=== PATIENT | male | born 1955 | race Caucasian/White ===

== ENCOUNTER → 2017-06-28 | Outpatient (CLI) | payer SELFPAY ==
[~2017-06-28] MED LIST: ACID1TAB14 PO; ALPR0.5T PO; DESV50TA PO; FAMO20TA5 PO; GLIM1TAB PO; LAMO200T3 PO; LURA40TA PO; PIOG30TA41 PO; SITA1TAB11 PO; TEST5GEL TP
--- NOTE | 2017-06-28 11:10 | RAD ---
APPROVED REPORT Test Type: Exercise Stress Nurse/Tech: Svetlana Mueller R.N. Test Indications: Chest pain Cardiac History: SEE EMR Medications: SEE EMR Medical History: SEE EMR Resting ECG: SR Resting Heart Rate: 64 bpm Resting Blood Pressure: 168/83mmHg Pretest Chest Pain: None Nurse/Tech Notes S1S2, lungs CTA but diminshed throughout, denied chest pain or SOA. Denied dizziness. Consent: The procedure was explained to the patient in lay terms. Informed consent was witnessed. Aurelio eout was entered into [employer]. History and Stress Test performed by Svetlana Mueller R.N. Stress Symptoms Extremely SOA, c/o L- sided chest pain. POST EXERCISE Reason for Termination: Fatigue Target HR: 134 Max HR: 120 bpm 89% of Maximum Predicted HR: 158 bpm Exercise duration: 3:22 min:sec, 2 Stage Exercise capacity: 7.0METs Max Blood Pressure: 189/67mmHg Blood Pressure response to exercise: Abnormal increase in blood pressure during stress. Heart Rate response to exercise: Normal Chest Pain: Yes. c/o L- sided chest pain Arrhythmia: No. ST Change: Yes. Significant ST segment depression Deviation: 3.5 mm INTERPRETATION Stress EKG Conclusion: Significant 3.5 mm inferior/lateral ST segment depression at moderate workload suggestive of ischemia. ST segments resolved in rest. Conclusion 1. Stress EKG only, no imaging performed. 2. Average workload at 7.0 Mets. 3. Hypertensive BP response. 4. Significant inferolateral ST segment depression suggestive of ischemia with notable symptoms of dy spnea during stress. (POSITIVE STRESS) Recommendations Consider coronary angiography
== END | disposition home or self-care (01) ==
LOC: NM 08:48
PROVIDERS: ATTEND Family Medicine
DX: I10 Essential (primary) hypertension (principal); R07.9 Chest pain, unspecified; E11.9 Type 2 diabetes mellitus without complications
CPT/HCPCS: 93017

== ENCOUNTER 2017-07-10 07:42 | Inpatient (IN) | payer SELFPAY ==
[~2017-07-10] VITALS: Ht 179.1 cm; Wt 109.4 kg
[2017-07-10] VITALS (13 sets, daily range): BP systolic 121–200; BP diastolic 55–95
--- NOTE | 2017-07-10 07:55 | PHYS DOC ---
Past Medical History Past Medical History: Hypertension Adult General Chief Complaint Chief Complaint: CHEST PAIN HPI HPI Patient is a 62 year old male who presents with intermittent left-sided achy chest pain that radiates into his left arm and to feel numb. Patient states he' s been having these symptoms increasing in frequency over the last couple months. Patient had a stress test performed on June 28 that was positive for ischemia with stress. Patient states he gets his symptoms more with exerting himself, improves with rest. No known coronary artery disease, he has been seen by Dr. Cooper. He took an 81 mg aspirin. His pain is still present but mild in nature at this time. Reports recent mild cough, no fevers, no shortness of breath or diaphoresis. Primary care physician is Dr. Huitron Review of Systems Review of Systems Constitutional: Denies fever or chills [] Eyes: Denies change in visual acuity, redness, or eye pain [] HENT: Denies nasal congestion or sore throat [] Respiratory: Denies shortness of breath [] Cardiovascular: No additional information not addressed in HPI [] GI: Denies abdominal pain, nausea, vomiting, bloody stools or diarrhea [] : Denies dysuria or hematuria [] Musculoskeletal: Denies back pain or joint pain [] Integument: Denies rash or skin lesions [] Neurologic: Denies headache, focal weakness or sensory changes [] Current Medications Current Medications Current Medications Medications (Trade) Dose Ordered Sig/Teresa Start Time Stop Time Status Last Admin Dose Admin Aspirin (Children'S Aspirin) 243 mg 1X ONCE 07/10/17 08:00 07/10/17 08:02 DC 07/10/17 08:17 243 MG Heparin Sodium (Porcine) (Heparin Sodium) 4,000 unit 1X ONCE 07/10/17 08:45 07/10/17 08:46 DC 07/10/17 08:50 4,000 UNIT Heparin Sodium/ Dextrose 500 ml @ 0 mls/hr CONT PRN 07/10/17 08:45 07/10/17 08:51 0 MLS/HR Nitroglycerin (Nitrostat) 0.4 mg PRN Q5MIN PRN 07/10/17 08:00 07/10/17 08:17 0.4 MG Allergies Allergies Allergies Coded Allergies Type Severity Reaction Last Updated Verified codeine Adverse Reaction Mild upset stomach 07/10/17 Yes Physical Exam Physical Exam Constitutional: Well developed, well nourished, no acute distress, non-toxic appearance. [] HENT: Normocephalic, atraumatic, bilateral external ears normal, oropharynx moist, no oral exudates, nose normal. [] Eyes: PERRLA, EOMI, conjunctiva normal, no discharge. [] Neck: Normal range of motion, no tenderness, supple, no stridor. [] Cardiovascular:Heart rate regular with regular rhythm, no murmur [] Lungs & Thorax: Bilateral breath sounds clear to auscultation , no wheeze or crackles Abdomen: Bowel sounds normal, soft, no tenderness, no masses, no pulsatile masses. [] Skin: Warm, dry, no erythema, no rash. [] Back: No tenderness, no CVA tenderness. [] Extremities: No tenderness, no cyanosis, no clubbing, ROM intact, no edema.neg homen's bilateraly Neurologic: Alert and oriented X 3, normal motor function, normal sensory function, no focal deficits noted. [] Psychologic: Affect normal, judgement normal, mood normal. [] Current Patient Data Vital Signs Vital Signs Date Time Temp Pulse Resp B/P (MAP) Pulse Ox O2 Delivery O2 Flow Rate FiO2 07/10/17 08:28 61 16 141/74 (96) 97 Room Air 07/10/17 07:46 97.9 97.9 Lab Values Laboratory Tests Test 07/10/17 07:50 07/10/17 07:55 07/10/17 07:57 White Blood Count 8.1 x10^3/uL (4.0-11.0) Red Blood Count 4.59 x10^6/uL (4.30-5.70) Hemoglobin 13.0 g/dL (13.0-17.5) Hematocrit 38.8 % (39.0-53.0) L Mean Corpuscular Volume 85 fL (79-100) Mean Corpuscular Hemoglobin 28 pg (25-35) Mean Corpuscular Hemoglobin Concent 34 g/dL (31-37) Red Cell Distribution Width 14.9 % (11.5-14.5) H Platelet Count 271 x10^3/uL (140-400) Neutrophils (%) (Auto) 56 % (31-73) Lymphocytes (%) (Auto) 34 % (24-48) Monocytes (%) (Auto) 6 % (0-9) Eosinophils (%) (Auto) 3 % (0-3) Basophils (%) (Auto) 1 % (0-3) Neutrophils # (Auto) 4.5 x10^3uL (1.8-7.7) Lymphocytes # (Auto) 2.8 x10^3/uL (1.0-4.8) Monocytes # (Auto) 0.5 x10^3/uL (0.0-1.1) Eosinophils # (Auto) 0.2 x10^3/uL (0.0-0.7) Basophils # (Auto) 0.1 x10^3/uL (0.0-0.2) Prothrombin Time 11.6 SEC (11.7-14.0) L Prothrombin Time INR 0.9 (0.8-1.1) PTT 28 SEC (24-38) Magnesium Level 1.8 mg/dL (1.8-2.4) Triglycerides Level 332 mg/dL (0-150) H Cholesterol Level 276 mg/dL (0-200) H LDL Cholesterol, Calculated 179 mg/dL (0-100) H VLDL Cholesterol, Calculated 66 mg/dL (0-40) H Non-HDL Cholesterol Calculated 245 mg/dL (0-129) H HDL Cholesterol 31 mg/dL (40-60) L Cholesterol/HDL Ratio 8.9 POC Troponin I 0.08 ng/ml (<0.08) POC Hemoglobin 12.9 g/dL (14-18) L POC Hematocrit 38 % (37-52) POC Sodium 138 mmol/L (135-145) POC Potassium 4.0 mmol/L (3.5-5.0) POC Chloride 107 mmol/L (98-110) POC Total CO2 24 mmol/L (23-32) Anion Gap 12 mmol/L (6-14) POC Blood Urea Nitrogen 16 mg/dL (8-26) POC Creatinine 1.1 mg/dL (0.5-1.4) Glucose Level 190 mg/dL (70-99) H POC Ionized Calcium (Jeaneth) 1.16 mmol/L (1.13-1.32) Laboratory Tests 07/10/17 07:50 Laboratory Tests 07/10/17 07:57 EKG EKG []82 bpm, sinus, normal axis, normal intervals, no ST elevation or depression, nonischemic T waves, interpreted by me Radiology/Procedures Radiology/Procedures CXr: IMPRESSION: 1. A retrocardiac opacity is likely normal vasculature. Correlate clinically to exclude a left lower lobe infiltrate. Comparison with older radiographs is recommended to assess chronicity. Course & Med Decision Making Course & Med Decision Making Pertinent Labs and Imaging studies reviewed. (See chart for details) Pt given 243 mg asa, nitro SL, labs, CXR performed. Pain improved. Contacted cardiology regarding consult, Heparin bolus and drip initiated. called Dr. Huitron for admission. Total critical care time: 32 minutes Dragon Disclaimer Dragon Disclaimer This electronic medical record was generated, in whole or in part, using a voice recognition dictation system. Departure Departure Impression: Primary Impression: Angina effort Additional Impression: Abnormal stress ECG Disposition: ADMITTED INPATIENT Admitting Physician: Caio Huitron Condition: GUARDED Referrals: CAIO HUITRON MD (PCP) Problem Qualifiers ALIYAH ALEJANDRE MD Jul 10, 2017 07:55
[2017-07-10] MEDS ORDERED: NITROGLYCERIN SUBLINGUAL 0.4 MG BOTTLE OF 25. SL PRN (08:00)
[2017-07-10] MEDS ORDERED: ASPIRIN CHEWABLE 81 MG TABLET. PO ONE (08:00)
[2017-07-10 08:09] LABS: BASO # 0.1 x10^3/uL (0.0-0.2); BASO % 1 % (0-3); EOS % 3 % (0-3); HEMATOCRIT 38.8 % (39.0-53.0); LYMPH # 2.8 x10^3/uL (1.0-4.8); LYMPH % 34 % (24-48); MEAN CORPUSCULAR HEMOGLOBIN 28 pg (25-35); MEAN CORPUSCULAR HGB CONC 34 g/dL (31-37); MEAN CORPUSCULAR VOLUME 85 fL (79-100); MONO % 6 % (0-9); NEUT % 56 % (31-73); PLATELET COUNT 271 x10^3/uL (140-400); RED BLOOD COUNT 4.59 x10^6/uL (4.30-5.70); RED CELL DISTRIBUTION WIDTH 14.9 % (11.5-14.5); WHITE BLOOD COUNT 8.1 x10^3/uL (4.0-11.0)
[2017-07-10 08:25] LABS: INR 0.9 (0.8-1.1); PROTHROMBIN TIME PATIENT 11.6 SEC (11.7-14.0)
--- NOTE | 2017-07-10 08:33 | EKG ---
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
[2017-07-10] MEDS ORDERED: SITA1TBM7 PO (08:37)
[2017-07-10] MEDS ORDERED: HEPARIN for IV BOLUS 10,000 UNIT/10 ML VIAL. IV ONE ×2 (08:45)
[2017-07-10] MEDS ORDERED: HEPARIN 25,000UTS/500ML PREMIX 500 ML IV PRN ×2 (08:45)
[2017-07-10 09:10] LABS: CHOLESTEROL/HDL RATIO 8.9
--- NOTE | 2017-07-10 09:34 | RAD ---
EXAM: Chest one view. HISTORY: Left chest pain. COMPARISON: None. FINDINGS: A frontal view of the chest is obtained. A retrocardiac opacity may represent normal vasculature. There is no pneumothorax or pleural effusion. The heart is not enlarged. IMPRESSION: 1. A retrocardiac opacity is likely normal vasculature. Correlate clinically to exclude a left lower lobe infiltrate. Comparison with older radiographs is recommended to assess chronicity.
[2017-07-10] MEDS ORDERED: IV NORMAL SALINE 1000ML BAG 1,000 ML IV SCH ×2 (09:47→10:00)
[2017-07-10] MEDS ORDERED: PNEUMOCOCCAL VAX SCREEN BY RX. MC PRN (10:00)
--- NOTE | 2017-07-10 10:02 | PDOC2 ---
TULIOPAULA Ruiz ROD MILL OPERATOR 07/10/17 1002: CARDIAC CONSULT DATE OF CONSULT Date of Consult DATE: 07/10/17 TIME: 09:48 REASON FOR CONSULT Reason for Consult: Chest pain REFERRING PHYSICIAN Referring Physician: Juan SOURCE Source: Chart review, Patient HISTORY OF PRESENT ILLNESS HISTORY OF PRESENT ILLNESS This is a pleasant 62 yo male admitted for complains of chest pain. Reports that he has been having intermittent chest pressure in the last few weeks and last night it woke him up. Decided to go back to sleep, he then woke up this am and had the same discomfort and it stayed this time. This lasted about an hour and improved when NTG was given. His chest pressure is associated with left neck and left arm discomfort and ALBARADO. He had stress EKG 06/28/2017 which was positive for abnormality suspicious for ischemia. He is positive for DM2 and takes metformin and takes ASA as well otherwise no other meds. PAST MEDICAL HISTORY Cardiovascular: No pertinent hx Pulmonary: No pertinent hx CENTRAL NERVOUS SYSTEM: Other (No pertinent history) GI: No pertinent hx Heme/Onc: No pertinent hx Hepatobiliary: No pertinent hx Psych: Bipolar Musculoskeletal: Osteoarthritis Rheumatologic: No pertinent hx Infectious disease: No pertinent hx ENT: No pertinent hx Renal/: Other (hypogonadism) Endocrine: Diabetes (2) Dermatology: No pertinent hx PAST SURGICAL HISTORY Past Surgical History: No pertinent history FAMILY HISTORY Family History: Coronary Artery Disease (father CABG at 50) SOCIAL HISTORY Smoke: No ALCOHOL: none Drugs: Marijuana Lives: with Family CURRENT MEDICATIONS CURRENT MEDICATIONS Current Medications Medications (Trade) Dose Ordered Sig/Teresa Route PRN Reason Start Time Stop Time Status Last Admin Dose Admin Aspirin (Children'S Aspirin) 243 mg 1X ONCE PO 07/10/17 08:00 07/10/17 08:02 DC 07/10/17 08:17 Nitroglycerin (Nitrostat) 0.4 mg PRN Q5MIN PRN SL CHEST PAIN 07/10/17 08:00 07/10/17 08:17 Heparin Sodium (Porcine) (Heparin Sodium) 4,000 unit 1X ONCE IV 07/10/17 08:45 07/10/17 08:46 DC 07/10/17 08:50 Heparin Sodium/ Dextrose 500 ml @ 0 mls/hr CONT PRN IV SEE I/O RECORD 07/10/17 08:45 07/10/17 08:51 ALLERGIES ALLERGIES: Coded Allergies: codeine (Verified Adverse Reaction, Mild, upset stomach, 07/10/17) ROS Review of System 14 point ROS evaluated with pertinent positives noted per HPI PHYSICAL EXAM General: Alert, Oriented X3, Cooperative, No acute distress HEENT: Atraumatic, Mucous membr. moist/pink Lungs: Clear to auscultation, Normal air movement Heart: Regular rate (SR), Normal S1, Normal S2, No murmurs Abdomen: Soft, No tenderness Extremities: No cyanosis, No edema Skin: No breakdown, No significant lesion Neuro: Normal speech, Sensation intact Psych/Mental Status: Mood NL MUSCULOSKELETAL: Osteoarthritic changes both hands VITALS VITALS Vital Signs Date Time Temp Pulse Resp B/P (MAP) Pulse Ox O2 Delivery O2 Flow Rate FiO2 07/10/17 09:25 97.9 70 18 121/55 (77) 97 Room Air 97.9 LABS Lab: Laboratory Tests Test 07/10/17 07:50 07/10/17 07:55 07/10/17 07:57 White Blood Count 8.1 x10^3/uL (4.0-11.0) Red Blood Count 4.59 x10^6/uL (4.30-5.70) Hemoglobin 13.0 g/dL (13.0-17.5) Hematocrit 38.8 % (39.0-53.0) Mean Corpuscular Volume 85 fL (79-100) Mean Corpuscular Hemoglobin 28 pg (25-35) Mean Corpuscular Hemoglobin Concent 34 g/dL (31-37) Red Cell Distribution Width 14.9 % (11.5-14.5) Platelet Count 271 x10^3/uL (140-400) Neutrophils (%) (Auto) 56 % (31-73) Lymphocytes (%) (Auto) 34 % (24-48) Monocytes (%) (Auto) 6 % (0-9) Eosinophils (%) (Auto) 3 % (0-3) Basophils (%) (Auto) 1 % (0-3) Neutrophils # (Auto) 4.5 x10^3uL (1.8-7.7) Lymphocytes # (Auto) 2.8 x10^3/uL (1.0-4.8) Monocytes # (Auto) 0.5 x10^3/uL (0.0-1.1) Eosinophils # (Auto) 0.2 x10^3/uL (0.0-0.7) Basophils # (Auto) 0.1 x10^3/uL (0.0-0.2) Prothrombin Time 11.6 SEC (11.7-14.0) Prothromb Time International Ratio 0.9 (0.8-1.1) Activated Partial Thromboplast Time 28 SEC (24-38) Magnesium Level 1.8 mg/dL (1.8-2.4) Triglycerides Level 332 mg/dL (0-150) Cholesterol Level 276 mg/dL (0-200) LDL Cholesterol, Calculated 179 mg/dL (0-100) VLDL Cholesterol, Calculated 66 mg/dL (0-40) Non-HDL Cholesterol Calculated 245 mg/dL (0-129) HDL Cholesterol 31 mg/dL (40-60) Cholesterol/HDL Ratio 8.9 Bedside Troponin I 0.08 ng/ml (<0.08) Bedside Hemoglobin 12.9 g/dL (14-18) Bedside Hematocrit 38 % (37-52) Bedside Sodium 138 mmol/L (135-145) Bedside Potassium 4.0 mmol/L (3.5-5.0) Bedside Chloride 107 mmol/L (98-110) Bedside Total CO2 24 mmol/L (23-32) Anion Gap 12 mmol/L (6-14) Bedside Blood Urea Nitrogen 16 mg/dL (8-26) Bedside Creatinine 1.1 mg/dL (0.5-1.4) Glucose Level 190 mg/dL (70-99) Bedside Ionized Calcium (Jeaneth) 1.16 mmol/L (1.13-1.32) STRESS TEST STRESS TEST Conclusion 1. Stress EKG only, no imaging performed. 2. Average workload at 7.0 Mets. 3. Hypertensive BP response. 4. Significant inferolateral ST segment depression suggestive of ischemia with notable symptoms of dyspnea during stress. (POSITIVE STRESS) Recommendations Consider coronary angiography DATE: 06/28/17 1110 ASSESSMENT/PLAN ASSESSMENT/PLAN 1. Unstable angina: recently abnormal stress EKG 2. HTN: new. improving 3. HLP: New. Suspecting FH 4. DM2 5. Hypogonadism: takes testosterone gel 6. Hx of bipolar 7. Marijuana use: last use today Recommendations 1. LHC today, risks and benefits discussed and agreeable to proceed 2. Heparin drip, ASA. Start on high dose lipitor. 3. Discussed abstinence from marijuana 4. Further adjustment of medications and secondary prevention measures post cath. Problems: LORI PARIKH MD 07/10/17 1631: CARDIAC CONSULT ALLERGIES ALLERGIES: Coded Allergies: codeine (Verified Adverse Reaction, Mild, upset stomach, 07/10/17) ASSESSMENT/PLAN ASSESSMENT/PLAN Patient seen and examined. Agree with WAFER SLICER's assessment and plan. Symptoms consistent with unstable angina. Recent stress electrocardiogram positive for ischemia. We will proceed with left heart catheterization and possible angioplasty. Risks and benefits were explained. Thank you for your consultation. Problems: PAULA SANTILLAN APRN Jul 10, 2017 10:02 LORI PARIKH MD Jul 10, 2017 16:31
[2017-07-10] MEDS ORDERED: LAMO200T3 PO (10:18)
[2017-07-10 10:22] LABS: ALBUMIN 3.7 g/dL (3.4-5.0); DIRECT BILIRUBIN 0.1 mg/dL (0.0-0.2); TOTAL BILIRUBIN 0.2 mg/dL (0.2-1.0); TOTAL PROTEIN 7.4 g/dL (6.4-8.2)
[2017-07-10] MEDS ORDERED: ASPIRIN ENTERIC COATED 81 MG TABLET.DR. PO SCH (11:00)
[2017-07-10] MEDS ORDERED: PNEUMOC CONJ VACC 23-VALENT 0.5 ML VIAL. VAX IM ONE (11:00)
--- NOTE | 2017-07-10 11:19 | CARD ---
APPROVED REPORT EXAM: Two-dimensional and M-mode echocardiogram with Doppler and color Doppler. Other Information Quality : AverageHR: 68bpm INDICATION Chest Pain 2D DIMENSIONS Left Atrium(2D)4.0 (1.6-4.0cm)IVSd1.3 (0.7-1.1cm) Aortic Root(2D)3.4 (2.0-3.7cm)LVDd5.0 (3.9-5.9cm) LVOT Diameter2.1 (1.8-2.4cm)PWd1.3 (0.7-1.1cm) LVDs3.2 (2.5-4.0cm)FS (%) 35.4 % SV76.2 mlLVEF(%)64.6 (>50%) Aortic Valve AoV Peak Reji.144.9cm/sAoV VTI34.8cm AO Peak GR.8.4mmHgLVOT Peak Reji.111.1cm/s AO Mean GR.5mmHgAVA (VMAX)2.77cm2 [place] (VTI)2.80cm2 Mitral Valve MV E Zihaxfpm49.0cm/sMV DECEL OPPP368ut MV A Xxucxway17.4cm/sE/A Ratio0.8 Tricuspid Valve TR P. Kokhxcht324xl/sRAP [id number] TR Peak Gr.59wqLaIBUC94bvHh LEFT VENTRICLE The left ventricle is normal size. There is mild concentric left ventricular hypertrophy. Left ventri pankaj systolic function is normal. The Ejection Fraction is 50-55%. There is normal LV segmental wall m otion. Transmitral Doppler flow pattern is Grade I-abnormal relaxation pattern. RIGHT VENTRICLE The right ventricle is normal size. The right ventricular systolic function is normal. ATRIA The left atrium size is normal. The right atrium size is normal. The interatrial septum is intact wit h no evidence for an atrial septal defect or patent foramen ovale as noted on 2-D or Doppler imaging. AORTIC VALVE The aortic valve is sclerotic but opens well. Doppler and Color Flow revealed no significant aortic r egurgitation. There is no significant aortic valvular stenosis. MITRAL VALVE The mitral valve is normal in structure and function. There is no evidence of mitral valve prolapse. There is no mitral valve stenosis. Doppler and Color Flow revealed no mitral valve regurgitation note d. TRICUSPID VALVE The tricuspid valve is normal in structure. Doppler and Color Flow revealed trace to mild tricuspid r egurgitation. There is no pulmonary hypertension. The PA pressure was estimated at 20 mmHg. There is no tricuspid valve prolapse or vegetation. There is no tricuspid valve stenosis. PULMONIC VALVE Doppler and Color Flow revealed trace pulmonic valvular regurgitation. There is no pulmonic valvular stenosis. GREAT VESSELS The aortic root is normal in size. The ascending aorta is normal in size. The IVC is normal in size a nd collapses >50% with inspiration. PERICARDIAL EFFUSION There is no pleural effusion. There is no evidence of significant pericardial effusion. Critical Notification Critical Value: No <Conclusion> Left ventricle systolic function is normal. The Ejection Fraction is 50-55%. There is normal LV segmental wall motion.
[2017-07-10] MEDS ORDERED: LIDOCAINE 2% 20 ML VIAL. ONE (11:59)
[2017-07-10] MEDS ORDERED: IOHEXOL 300 MG/ML 100ML VIAL. ONE ×2 (11:59→15:32)
[2017-07-10] MEDS: LACTOBACILLUS RHAMNOSUS GG 1 CAPSULE. PO SCH ×2 (12:00→18:04)
[2017-07-10] MEDS ORDERED: DEXTROSE 50% 25 GM / 50ML DISP.SYRIN. IV PRN (12:00)
[2017-07-10] MEDS: ALPRAZolam 0.5 MG TABLET PO SCH ×2 (14:00→21:23)
[2017-07-10] MEDS ORDERED: MIDAZOLAM HCL/PF 2 MG/2 ML VIAL. ONE (15:09)
[2017-07-10] MEDS ORDERED: NITROGLYCERIN 200 MCG/2 ML SYRINGE FOR CATH/VASC LAB. ONE (15:09)
[2017-07-10] MEDS ORDERED: VERAPAMIL 5 MG/2 ML VIAL. ONE (15:09)
[2017-07-10] MEDS ORDERED: fentaNYL PF VIAL 100 MCG/2 ML VIAL ONE (15:09)
[2017-07-10] MEDS ORDERED: HEPARIN for IV BOLUS 10,000 UNIT/10 ML VIAL. ONE (15:09)
[2017-07-10] MEDS ORDERED: fentaNYL PF VIAL 100 MCG/2 ML VIAL IV ONE (15:45)
[2017-07-10] MEDS ORDERED: VERAPAMIL 5 MG/2 ML VIAL. IART ONE (15:45)
[2017-07-10] MEDS ORDERED: IOHEXOL 300 MG/ML 100ML VIAL. IART ONE (15:45)
[2017-07-10] MEDS ORDERED: HEPARIN for IV BOLUS 10,000 UNIT/10 ML VIAL. IART ONE (15:45)
[2017-07-10] MEDS ORDERED: CONTRAST GIVEN MC PRN (15:45)
[2017-07-10] MEDS ORDERED: LIDOCAINE 2% 20 ML VIAL. IJ ONE (15:45)
[2017-07-10] MEDS ORDERED: MIDAZOLAM HCL/PF 2 MG/2 ML VIAL. IV ONE (15:45)
[2017-07-10] MEDS ORDERED: NITROGLYCERIN 200 MCG/2 ML SYRINGE FOR CATH/VASC LAB. IART ONE (15:45)
--- NOTE | 2017-07-10 16:26 | CARD ---
APPROVED REPORT Procedure(s) performed: Left heart catheterization, selective coronary angiography and left ventricul ography via right transradial approach Moderate sedation: 25 minutes INDICATION The indication(s) include : unstable angina . PROCEDURE NARRATIVE After explaining the risks, benefits and alternative options, informed consent was obtained from ron ent. Patient was brought to the cardiac Plant Electrical Engineer and right wrist was prepped and draped in the usual fashion after confirming a positive modified Amanuel's test. Arterial access was obtained in the [facility] t radial artery and a 6 [place]ian sheath was inserted. 6 [place] Vlad and 6 [place] 3-D RC catheters we re used to perform selective angiography of the left and right coronary arteries. 6 [place]ian pigtail c atheter was used to perform left ventriculography. Patient tolerated the procedure well. Hemostasis was achieved using TR band. There were no immediate complications. The following findings were not ed. FINDINGS 1. Hemodynamics: Left ventricular end-diastolic pressure of 15 mmHg. No pullback gradient across th e aortic valve. 2. Left ventriculography: Normal left ventricle systolic function with ejection fraction estimated at 60%. No significant mitral regurgitation seen. 3. Coronary angiography: a. The left main coronary artery arose from the left sinus of Valsalva, gave rise to the left anteri or descending and left circumflex arteries and did not show any significant stenosis. b. The left anterior descending artery showed long and heavily calcified 90-95% stenosis involving m id segment. c. The left circumflex artery showed 90% trifurcation stenosis involving the distal segment, second third and fourth obtuse marginal branches. The first obtuse marginal branch which is a small-caliber vessel showed long 90% stenosis in the proximal to midsegment. d. The right coronary artery was a dominant vessel arising from the right sinus of Valsalva that barbara wed 100% chronic total occlusion involving the proximal to midsegment with distal reconstitution of p osterior descending and posterolateral branches via [id number] collaterals. Conclusion 1. Severe three-vessel coronary artery disease 2. Normal left ventricle systolic function with ejection fraction estimated at 60% Recommendations CT surgery consultation for coronary artery bypass surgery
--- NOTE | 2017-07-10 16:27 | PDOC ---
MODERATE SEDATION ASSESSMENT RISKS/ALTERNATIVES Risks/Alternatives Risks and alternatives of this type of sedation and procedure discussed with: RISK/ALTERNATIVES: Patient H & P ON CHART H & P H & P on chart and reviewed for co-morbid conditions and appropriate labs. H&P ON CHART: Yes STATUS PREG STATUS ASSESSED: N/A MEDS/ALLERGIES REVIEWED Meds/Allergies Reviewed Medications and Allergies including time and route of recently administered narcotics and sedatives. MEDS/ALLERGIES REVIEWED: Yes ASA RATING ASA RATING: II AIRWAY ASSESSMENT Airway Assessment Airway patency, oral function limitations, presence of caps, crowns, dentures, partials, and ability to extend neck assessed. AIRWAY ASSESSMENT: Yes MALLAMPATI SCORE MALLAMPATI SCORE: II PRE-SEDATION ASSESSMENT PRE-SEDATION ASSESSMENT: Yes LORI PARIKH MD Jul 10, 2017 16:27
[2017-07-10] MEDS ORDERED: ZOLPIDEM 5 MG TABLET. PO PRN (17:45)
[2017-07-10] MEDS ORDERED: METOPROLOL TART IMMED RELEASE 25 MG TABLET. PO ONE (17:45)
--- NOTE | 2017-07-10 17:47 | PDOC2 ---
CONSULT Date of Consult Date of Consult DATE: 07/10/17 TIME: 17:39 Reason for Consult Reason for Consult: Unstable angina Severe three-vessel coronary artery disease Referring Physician Referring Physician: Dr Bosch Identification/Chief Complaint Chief Complaint Chest pain Problems: Source Source: Chart review, Patient History of Present Illness Reason for Visit: The patient is a 62-year-old male who over the past several months has been complaining of angina on minimal exertion. He has a family history of ischemic heart disease, and a medical history of type 2 diabetes and hypertension. He had a stress test 10 days ago which was strongly positive. He was due to have an elective coronary angiogram next week but came to the emergency room last night after a severe episode of central chest pain radiating to his left arm and jaw or which woke him up in the middle and night. His troponin was negative. Coronary angiography today demonstrated a very tight proximal to mid LAD stenosis, multiple tight lesions in the left circumflex, and a chronically occluded RCA. The RPDA back feels from left to right collaterals. His LV function is preserved. An echo did not show any valvular disease. I was consulted to consider the patient for coronary surgical revascularization. Past Medical History Cardiovascular: No pertinent hx Pulmonary: No pertinent hx CENTRAL NERVOUS SYSTEM: Other (No pertinent history) GI: No pertinent hx Heme/Onc: No pertinent hx Hepatobiliary: No pertinent hx Psych: Bipolar Musculoskeletal: Osteoarthritis Rheumatologic: No pertinent hx Infectious disease: No pertinent hx ENT: No pertinent hx Renal/: Other (hypogonadism) Endocrine: Diabetes (2) Dermatology: No pertinent hx Past Surgical History Past Surgical History: No pertinent history Family History Family History: Coronary Artery Disease (father CABG at 50) Social History No ALCOHOL: none Drugs: Marijuana Lives: with Family Current Problem List Problem List Problems Medical Problems: (1) Abnormal stress ECG Status: Acute (2) Angina effort Status: Acute Current Medications Current Medications Current Medications Aspirin (Children'S Aspirin) 243 mg 1X ONCE PO Last administered on 08:17; Start 07/10/17 at 08:00; Stop 07/10/17 at 08:02; Status DC Nitroglycerin (Nitrostat) 0.4 mg PRN Q5MIN PRN SL CHEST PAIN Last administered on 07/10/17 08:17; Start 07/10/17 at 08:00 Heparin Sodium (Porcine) (Heparin Sodium) 4,000 unit 1X ONCE IV ; Start at 08:45; Stop 07/10/17 at 08:46; Status Cancel Heparin Sodium/ Dextrose 500 ml @ 0 mls/hr CONT PRN IV SEE I/O RECORD; Start 07/10/17 at 08:45; Status UNV Heparin Sodium (Porcine) (Heparin Sodium) 4,000 unit 1X ONCE IV Last administered on 07/10/17 08:50; Start 07/10/17 at 08:45; Stop 07/10/17 at 08 :46; Status DC Heparin Sodium/ Dextrose 500 ml @ 0 mls/hr CONT PRN IV SEE I/O RECORD Last administered on 07/10/17 08:51; Start 07/10/17 at 08:45 Sodium Chloride 1,000 ml @ 60 mls/hr [id number] IV ; Start 07/10/17 at 10:00; Stop 07/10/17 at 10:13; Status DC Sodium Chloride 1,000 ml @ 60 mls/hr [id number] IV Last administered on 09:59; Start 07/10/17 at 09:47 Pneumococcal Polyvalent Vaccine (Do NOT chart on this placeholder) 1 each PRN 1X PRN MC SEE COMMENTS; Start 07/10/17 at 10:00; Status UNV Pneumococcal Polyvalent Vaccine (Pneumovax 23) 0.5 ml ONCE ONCE VAX IM ; Start 07/10/17 at 11:00; Stop 07/10/17 at 11:01; Status DC Aspirin (Ecotrin) 81 mg DAILYWBKFT PO ; Start 07/10/17 at 11:00 Atorvastatin Calcium (Lipitor) 80 mg QHS PO ; Start 07/10/17 at 21:00 Alprazolam (Xanax) 0.5 mg TID PO ; Start 07/10/17 at 14:00 Lurasidone HCl (Latuda) 40 mg QHS PO ; Start 07/10/17 at 21:00 Non-Formulary Medication 1 tab DAILY PO ; Start 07/11/17 at 09:00; Status Cancel Glimepiride (Amaryl) 2 mg DAILY PO ; Start 07/10/17 at 12:00 Lamotrigine (LaMICtal) 200 mg QHS PO ; Start 07/10/17 at 21:00 Pioglitazone HCl (Actos) 30 mg DAILY PO ; Start 07/10/17 at 12:00 Non-Formulary Medication 1 packet DAILY TP ; Start 07/11/17 at 09:00; Status UNV Lactobacillus Rhamnosus (Culturelle) 1 cap TIDWMEALS PO ; Start 07/10/17 at 12: 00 Dextrose (Dextrose 50%-Water Syringe) 12.5 gm PRN Q15MIN PRN IV SEE COMMENTS; Start 07/10/17 at 12:00 Desvenlafaxine Succinate (Pristiq Er) 50 mg DAILY PO ; Start 07/11/17 at 09:00 Nitroglycerin (Nitroglycerin) 200 mcg 1X ONCE IART Last administered on 15:54; Start 07/10/17 at 15:45; Stop 07/10/17 at 15:46; Status DC Verapamil HCl (Verapamil) 2.5 mg 1X ONCE IART Last administered on 07/10/17 15:54; Start 07/10/17 at 15:45; Stop 07/10/17 at 15:46; Status DC Heparin Sodium (Porcine) (Heparin Sodium) 2,500 unit 1X ONCE IART Last administered on 07/10/17 15:55; Start 07/10/17 at 15:45; Stop 07/10/17 at 15 :46; Status DC Heparin Sodium/ Sodium Chloride 1,000 unit 1X ONCE IART Last administered on 07/10/17 15:53; Start 07/10/17 at 15:45; Stop 07/10/17 at 15:46; Status DC Midazolam HCl (Versed) 2 mg 1X ONCE IV Last administered on 07/10/17 15:55; Start 07/10/17 at 15:45; Stop 07/10/17 at 15:46; Status DC Fentanyl Citrate (Fentanyl 2ml Vial) 100 mcg 1X ONCE IV Last administered on 07/10/17 15:55; Start 07/10/17 at 15:45; Stop 07/10/17 at 15:46; Status DC Iohexol (Omnipaque 300 Mg/ml) 120 ml 1X ONCE IART Last administered on 15:54; Start 07/10/17 at 15:45; Stop 07/10/17 at 15:46; Status DC Lidocaine HCl 1 ml 1X ONCE IJ Last administered on 07/10/17t 15:53; Start at 15:45; Stop 07/10/17 at 15:46; Status DC Info (Do NOT chart on this entry -- for MONITORING) 1 each PRN DAILY PRN MC SEE COMMENTS; Start 07/10/17 at 15:45; Stop 07/12/17 at 15:44 Metoprolol Tartrate (Lopressor) 12.5 mg BID PO ; Start 07/10/17 at 21:00 Ringer's Solution 1,000 ml @ 50 mls/hr Q20H IV ; Start 07/11/17 at 07:00; Stop 07/11/17 at 18:59 Zolpidem Tartrate (Ambien) 5 mg PRN QHS PRN PO INSOMNIA, MAY REPEAT IN 1HR; Start 07/10/17 at 17:45 Cefazolin Sodium/ Dextrose 50 ml @ 100 mls/hr 1X ONCE IV ; Start 07/11/17 at 06:00; Stop 07/11/17 at 06:29 Metoprolol Tartrate (Lopressor) 25 mg 1X ONCE PO ; Start 07/10/17 at 17:45; Stop 07/10/17 at 17:46; Status UNV Hydralazine HCl (Apresoline Inj) 20 mg PRN Q4HRS PRN IVP ELEVATED BP, SEE COMMENTS; Start 07/10/17 at 17:45; Status UNV Active Scripts Active Famotidine 20 Mg Tablet 20 Mg PO QHS 30 Days Debi-Bid Caplet (Acidoph/L.bulg/Bif.b/S.thermop) 1 Each Tablet 1 Tab PO TIDWMEALS 14 Days Reported Lamictal (Lamotrigine) 200 Mg Tablet 1 Tab PO HS Janumet Xr 100-1,000 Mg Tablet (Sitagliptin Phos/Metformin Hcl) 1 Each Tbmp.24hr 1 Each PO DAILY Amaryl (Glimepiride) 1 Mg Tablet 2 Tab PO DAILY Androgel (Testosterone) 5 Gm Gel.packet 1 Packet TP DAILY Actos (Pioglitazone Hcl) 30 Mg Tablet 1 Tab PO DAILY Pristiq Er (Desvenlafaxine Succinate) 50 Mg Tab.er.24h 1 Tab PO DAILY Latuda (Lurasidone Hcl) 40 Mg Tablet 1 Tab PO QHS Xanax (Alprazolam) 0.5 Mg Tablet 1 Tab PO TID Allergies Allergies: Coded Allergies: codeine (Verified Adverse Reaction, Mild, upset stomach, 07/10/17) ROS General: YES: Fatigue, No: Chills, Night Sweats, Malaise, Appetite PSYCHOLOGICAL ROS: No: Anxiety, Behavioral Disorder, Concentration difficultie , Decreased libido, Depression, Disorientation, Hallucinations, Hostility, Irritablity, Memory difficulties, Mood Swings, Obsessive thoughts, Physical abuse, Sexual abuse, Sleep disturbances, Suicidal ideation Eyes: No Blurry vision, No Decreased vision, No Double vision, No Dry eyes, No Excessive tearing, No Eye Pain, No Itchy Eyes, No Loss of vision, No Photophobia , No Scotomata, No Uses contacts, No Uses glasses HEENT: No: Heacaches, Visual Changes, Hearing change, Nasal congestion, Nasal discharge, Oral lesions, Sinus pain, Sore Throat, Epistaxis, Sneezing, Snoring, Tinnitus, Vertigo, Vocal changes ALLERGY AND IMMUNOLOGY: No: Hives, Insect Bite Sensitivity, Itchy/Watery Eyes, Nasal Congestion, Post Nasal Drip, Seasonal Allergies Hematological and Lymphatic: No: Bleeding Problems, Blood Clots, Blood Transfusions, Brusing, Night Sweats, Pallor, Swollen Lymph Nodes ENDOCRINE: No: Breast Changes, Galactorrhea, Hair Pattern Changes, Hot Flashes , Malaise/lethargy, Mood Swings, Palpitations, Polydipsia/polyuria, Skin Changes , Temperature Intolerance, Unexpected Weight Changes Respiratory: No: Cough, Hemoptysis, Orthopnea, Pleuritic Pain, Shortness of breath, SOB with excertion, Sputum Changes, Stridor, Tachypnea, Wheezing Cardiovascular: yes Chest Pain, No Palpitations, No Orthopnea, No Paroxysmal Noc. Dyspnea, No Edema, No Lt Headedness Gastrointestinal: No Nausea, No Vomiting, No Abdominal Pain, No Diarrhea, No Constipation, No Melena, No Hematochezia Genitourinary: No Dysuria, No Frequency, No Incontinence, No Hematuria, No Retention, No Discharge, No Urgency, No Pain, No Flank Pain Musculoskeletal: No Gait Disturbance, No Joint Pain, No Joint Stiffness, No Joint Swelling, No Muscle Pain, No Muscular Weakness, No Pain In:, No Swelling In: Neurological: No Behavorial Changes, No Bowel/Bladder ControlChng, No Confusion , No Dizziness, No Gait Disturbance, No Headaches, No Impaired Coord/balance, No Memory Loss, No Numbness/Tingling, No Seizures, No Speech Problems, No Tremors, No Visual Changes, No Weakness Skin: No Dry Skin, No Eczema, No Hair Changes, No Lumps, No Mole Changes, No Mottling, No Nail Changes, No Pruritus, No Rash, No Skin Lesion Changes, No Acne Physical Exam General: Alert, Oriented X3, No acute distress HEENT: Atraumatic, PERRLA Lungs: Clear to auscultation Heart: Regular rate, Normal S1, Normal S2 Abdomen: Soft, No tenderness Extremities: Normal pulses Skin: No significant lesion Neuro: Normal gait, Normal speech, Strength at 5/5 X4 ext, Normal tone, Sensation intact, Cranial nerves 3-12 NL Psych/Mental Status: Mental status NL MUSCULOSKELETAL: No joint tenderness Vitals VITALS Vital Signs Date Time Temp Pulse Resp B/P (MAP) Pulse Ox O2 Delivery O2 Flow Rate FiO2 07/10/17 15:56 66 12 97 Nasal Cannula 2.0 07/10/17 10:50 97.7 129/71 (90) 97.7 Labs Labs Laboratory Tests Test 07/10/17 07:50 07/10/17 07:55 07/10/17 07:57 07/10/17 11:29 White Blood Count 8.1 x10^3/uL (4.0-11.0) Red Blood Count 4.59 x10^6/uL (4.30-5.70) Hemoglobin 13.0 g/dL (13.0-17.5) Hematocrit 38.8 % (39.0-53.0) Mean Corpuscular Volume 85 fL (79-100) Mean Corpuscular Hemoglobin 28 pg (25-35) Mean Corpuscular Hemoglobin Concent 34 g/dL (31-37) Red Cell Distribution Width 14.9 % (11.5-14.5) Platelet Count 271 x10^3/uL (140-400) Neutrophils (%) (Auto) 56 % (31-73) Lymphocytes (%) (Auto) 34 % (24-48) Monocytes (%) (Auto) 6 % (0-9) Eosinophils (%) (Auto) 3 % (0-3) Basophils (%) (Auto) 1 % (0-3) Neutrophils # (Auto) 4.5 x10^3uL (1.8-7.7) Lymphocytes # (Auto) 2.8 x10^3/uL (1.0-4.8) Monocytes # (Auto) 0.5 x10^3/uL (0.0-1.1) Eosinophils # (Auto) 0.2 x10^3/uL (0.0-0.7) Basophils # (Auto) 0.1 x10^3/uL (0.0-0.2) Prothrombin Time 11.6 SEC (11.7-14.0) Prothromb Time International Ratio 0.9 (0.8-1.1) Activated Partial Thromboplast Time 28 SEC (24-38) Magnesium Level 1.8 mg/dL (1.8-2.4) Total Bilirubin 0.2 mg/dL (0.2-1.0) Direct Bilirubin 0.1 mg/dL (0.0-0.2) Aspartate Amino Transf (AST/SGOT) 14 U/L (15-37) Alanine Aminotransferase (ALT/SGPT) 17 U/L (16-63) Alkaline Phosphatase 44 U/L (46-116) Total Protein 7.4 g/dL (6.4-8.2) Albumin 3.7 g/dL (3.4-5.0) Triglycerides Level 332 mg/dL (0-150) Cholesterol Level 276 mg/dL (0-200) LDL Cholesterol, Calculated 179 mg/dL (0-100) VLDL Cholesterol, Calculated 66 mg/dL (0-40) Non-HDL Cholesterol Calculated 245 mg/dL (0-129) HDL Cholesterol 31 mg/dL (40-60) Cholesterol/HDL Ratio 8.9 Thyroid Stimulating Hormone (TSH) 1.535 uIU/mL (0.358-3.74) Bedside Troponin I 0.08 ng/ml (<0.08) Bedside Hemoglobin 12.9 g/dL (14-18) Bedside Hematocrit 38 % (37-52) Bedside Sodium 138 mmol/L (135-145) Bedside Potassium 4.0 mmol/L (3.5-5.0) Bedside Chloride 107 mmol/L (98-110) Bedside Total CO2 24 mmol/L (23-32) Anion Gap 12 mmol/L (6-14) Bedside Blood Urea Nitrogen 16 mg/dL (8-26) Bedside Creatinine 1.1 mg/dL (0.5-1.4) Glucose Level 190 mg/dL (70-99) Bedside Ionized Calcium (Jeaneth) 1.16 mmol/L (1.13-1.32) Glucose (Fingerstick) 81 mg/dL (70-99) Test 07/10/17 14:05 07/10/17 16:15 Troponin I Quantitative 0.090 ng/mL (0.000-0.055) Glucose (Fingerstick) 95 mg/dL (70-99) Laboratory Tests Test 07/10/17 07:50 07/10/17 07:55 07/10/17 07:57 07/10/17 11:29 White Blood Count 8.1 x10^3/uL (4.0-11.0) Red Blood Count 4.59 x10^6/uL (4.30-5.70) Hemoglobin 13.0 g/dL (13.0-17.5) Hematocrit 38.8 % (39.0-53.0) Mean Corpuscular Volume 85 fL (79-100) Mean Corpuscular Hemoglobin 28 pg (25-35) Mean Corpuscular Hemoglobin Concent 34 g/dL (31-37) Red Cell Distribution Width 14.9 % (11.5-14.5) Platelet Count 271 x10^3/uL (140-400) Neutrophils (%) (Auto) 56 % (31-73) Lymphocytes (%) (Auto) 34 % (24-48) Monocytes (%) (Auto) 6 % (0-9) Eosinophils (%) (Auto) 3 % (0-3) Basophils (%) (Auto) 1 % (0-3) Neutrophils # (Auto) 4.5 x10^3uL (1.8-7.7) Lymphocytes # (Auto) 2.8 x10^3/uL (1.0-4.8) Monocytes # (Auto) 0.5 x10^3/uL (0.0-1.1) Eosinophils # (Auto) 0.2 x10^3/uL (0.0-0.7) Basophils # (Auto) 0.1 x10^3/uL (0.0-0.2) Prothrombin Time 11.6 SEC (11.7-14.0) Prothromb Time International Ratio 0.9 (0.8-1.1) Activated Partial Thromboplast Time 28 SEC (24-38) Magnesium Level 1.8 mg/dL (1.8-2.4) Total Bilirubin 0.2 mg/dL (0.2-1.0) Direct Bilirubin 0.1 mg/dL (0.0-0.2) Aspartate Amino Transf (AST/SGOT) 14 U/L (15-37) Alanine Aminotransferase (ALT/SGPT) 17 U/L (16-63) Alkaline Phosphatase 44 U/L (46-116) Total Protein 7.4 g/dL (6.4-8.2) Albumin 3.7 g/dL (3.4-5.0) Triglycerides Level 332 mg/dL (0-150) Cholesterol Level 276 mg/dL (0-200) LDL Cholesterol, Calculated 179 mg/dL (0-100) VLDL Cholesterol, Calculated 66 mg/dL (0-40) Non-HDL Cholesterol Calculated 245 mg/dL (0-129) HDL Cholesterol 31 mg/dL (40-60) Cholesterol/HDL Ratio 8.9 Thyroid Stimulating Hormone (TSH) 1.535 uIU/mL (0.358-3.74) Bedside Troponin I 0.08 ng/ml (<0.08) Bedside Hemoglobin 12.9 g/dL (14-18) Bedside Hematocrit 38 % (37-52) Bedside Sodium 138 mmol/L (135-145) Bedside Potassium 4.0 mmol/L (3.5-5.0) Bedside Chloride 107 mmol/L (98-110) Bedside Total CO2 24 mmol/L (23-32) Anion Gap 12 mmol/L (6-14) Bedside Blood Urea Nitrogen 16 mg/dL (8-26) Bedside Creatinine 1.1 mg/dL (0.5-1.4) Glucose Level 190 mg/dL (70-99) Bedside Ionized Calcium (Jeaneth) 1.16 mmol/L (1.13-1.32) Glucose (Fingerstick) 81 mg/dL (70-99) Test 07/10/17 14:05 07/10/17 16:15 Troponin I Quantitative 0.090 ng/mL (0.000-0.055) Glucose (Fingerstick) 95 mg/dL (70-99) Images Images 1. Hemodynamics: Left ventricular end-diastolic pressure of 15 mmHg. No pullback gradient across the aortic valve. 2. Left ventriculography: Normal left ventricle systolic function with ejection fraction estimated at 60%. No significant mitral regurgitation seen. 3. Coronary angiography: a. The left main coronary artery arose from the left sinus of Valsalva, gave rise to the left anterior descending and left circumflex arteries and did not show any significant stenosis. b. The left anterior descending artery showed long and heavily calcified 90-95 % stenosis involving mid segment. c. The left circumflex artery showed 90% trifurcation stenosis involving the distal segment, second third and fourth obtuse marginal branches. The first obtuse marginal branch which is a small-caliber vessel showed long 90% stenosis in the proximal to midsegment. d. The right coronary artery was a dominant vessel arising from the right sinus of Valsalva that showed 100% chronic total occlusion involving the proximal to midsegment with distal reconstitution of posterior descending and posterolateral branches via [id number] collaterals. Conclusion 1. Severe three-vessel coronary artery disease 2. Normal left ventricle systolic function with ejection fraction estimated at 60% Assessment/Plan Assessment/Plan 62-year-old male with diabetes, and a strong family history of ischemic heart disease presents with unstable angina. Coronary angiography today demonstrated a very tight proximal to mid LAD lesion, multiple tight stenosis in the left circumflex, and a chronically occluded RCA but with a RPDA which backfills with [id number] collaterals. His LV function is preserved and echo did not show any valvular disease. A CABG is indicated. Overall he is a good surgical candidate. I quoted a risk for mortality of 1-2%. He also quoted a 1-2% risk of stroke, renal failure, 5% risk of pneumonia, wound infection, 5-8% risk of re- sternotomy for bleeding, 5% risk of perioperative RI, 20-30% risk of postoperative arrhythmias. The patient accepts these risks and agrees to proceed. Will obtain preoperative: Noncontrast CT chest Carotid duplex Bilateral lower extremity vein mapping Crossmatch to units PRBCs Nothing by mouth after midnight JANIE PYLE MD Jul 10, 2017 17:47
[2017-07-10] MEDS: GLIMEPIRIDE 2 MG TABLET. PO SCH (18:05)
[2017-07-10] MEDS: PIOGLITAZONE 15 MG TABLET. PO SCH (18:05)
[2017-07-10] MEDS ORDERED: METOPROLOL TART IMMED RELEASE 25 MG TABLET. PO SCH (21:00)
[2017-07-10] MEDS: lamoTRIgine 100 MG TABLET. PO SCH (21:23)
[2017-07-10] MEDS: LURASIDONE 40 MG TABLET. PO SCH (21:23)
[2017-07-10] MEDS: ATORVASTATIN CALCIUM 40 MG TABLET. PO SCH (21:24)
[2017-07-10] MEDS: hydrALAZINE 20 MG/ML VIAL. IVP PRN (21:27)
[2017-07-10] MEDS: PRISTIQ PO SCH ×2 (22:00→22:21)
[2017-07-11] VITALS (21 sets, daily range): BP systolic 85–215; BP diastolic 44–134
[2017-07-11] MEDS ORDERED: ONDANSETRON PF 4 MG/2 ML VIAL. IV PRN
[2017-07-11] MEDS ORDERED: LORazepam 1 MG TABLET PO PRN
[2017-07-11] MEDS ORDERED: SUFentanil 250 MCG/5 ML AMPUL. ONE (06:36)
[2017-07-11] MEDS ORDERED: AMINOCAPROIC ACID 5,000 MG/20 ML VIAL. IV ONE (06:38)
[2017-07-11] MEDS ORDERED: ROCURONIUM 100 MG/10 ML VIAL. ONE (06:39)
[2017-07-11] MEDS ORDERED: ETOMIDATE 20 MG/10 ML VIAL. IV ONE (06:40)
[2017-07-11] MEDS ORDERED: NITROGLYCERIN PREMIX 250 ML IV ONE (06:47)
[2017-07-11] MEDS ORDERED: PHENYLEPHRINE 10 MG/ML VIAL. ONE (06:49)
[2017-07-11] MEDS ORDERED: LIDOCAINE 2% PF Vial for OR 5 ML VIAL. ONE ×2 (06:50→07:53)
[2017-07-11] MEDS ORDERED: HEPARIN 30,000 UNIT/30 ML VIAL. ONE ×3 (06:51→13:00)
[2017-07-11] MEDS ORDERED: MIDAZOLAM HCL/PF 5 MG/5 ML VIAL. ONE (06:53)
[2017-07-11] MEDS ORDERED: SURGICEL HEMOSTAT 4X8 EACH. ONE (06:57)
[2017-07-11] MEDS ORDERED: PAPAVERINE 60 MG/2 ML VIAL FOR OR ONLY. ONE (06:57)
[2017-07-11] MEDS ORDERED: VANCOMYCIN 10GM VIAL for OR. ONE (06:57)
[2017-07-11] MEDS ORDERED: 0.9 % SODIUM CHLORIDE 50 ML VIAL. IJ ONE (06:58)
[2017-07-11] MEDS ORDERED: ASPIRIN 300 MG SUPP.RECT ONE (06:58)
[2017-07-11] MEDS ORDERED: IV RINGERS,LACTATED 1000ML 1,000 ML IV SCH (07:00)
[2017-07-11] MEDS ORDERED: LIDOCAINE 1% PF 2 ML VIAL. ONE (07:15)
[2017-07-11] MEDS ORDERED: MIDAZOLAM HCL/PF 2 MG/2 ML VIAL. ONE ×3 (07:15→12:18)
[2017-07-11] MEDS ORDERED: SUCCINYLCHOLINE 200 MG/10 ML VIAL. ONE (07:17)
[2017-07-11] MEDS ORDERED: POTASSIUM CHLORIDE 70 MEQ, SODIUM BICARBONATE VIAL 12.5 MEQ, LIDOCAINE 2% 24 ML in IV E... IRR ONE (07:30)
[2017-07-11] MEDS ORDERED: HEPARIN 20,000 UNIT in IV RINGERS,LACTATED 1000ML 1,000 ML IRR ONE (07:30)
[2017-07-11] MEDS ORDERED: POTASSIUM CHLORIDE 15 MEQ, SODIUM BICARBONATE VIAL 12.5 MEQ in IV ELECTROLYTE-S (PH 7.4... IRR ONE (07:30)
[2017-07-11] MEDS ORDERED: INSULIN REGULAR VIAL 150 UNIT in 0.9 % SODIUM CHLORIDE 150ML 150 ML IV PRN ×2 (07:45→13:30)
[2017-07-11] MEDS ORDERED: ALBUMIN HUMAN 25% 100 ML IV ONE (07:52)
[2017-07-11] MEDS ORDERED: MAGNESIUM SULFATE 5 GM/10 ML VIAL. ONE (07:53)
[2017-07-11] MEDS ORDERED: CALCIUM CHLORIDE 1,000 MG/10 ML DISP.SYRIN IV ONE ×2 (07:53→12:59)
[2017-07-11] MEDS ORDERED: MANNITOL 25% 12.5 G/50 ML VIAL FOR OR. ONE ×3 (07:53→12:59)
[2017-07-11] MEDS: LACTOBACILLUS RHAMNOSUS GG 1 CAPSULE. PO SCH ×3 (08:00→17:00)
[2017-07-11] MEDS ORDERED: HEPARIN for IV BOLUS 10,000 UNIT/10 ML VIAL. ONE ×2 (08:46→12:59)
--- NOTE | 2017-07-11 08:47 | RAD ---
CT of the chest with contrast 07/11/2017 Indication: Preoperative, coronary bypass surgery. Comparison study: None Findings: Multidetector CT imaging of the chest was performed without contrast. Heart size is within normal limits. No pericardial effusion is identified. Dense diffuse coronary calcification is present. No pathologically enlarged mediastinal adenopathy is identified. No pneumothorax, pleural effusion, or acute infiltrate is identified. Small calcified granulomas noted in the right upper lobe. Tiny calcified mediastinal lymph nodes also noted. Findings suggest prior granulomatous disease. There is a 3 mm noncalcified nodule in the lingula (axial image 37). Linear opacity in left lower lobe suggests scarring or discoid atelectasis. Limited visualization of the upper abdomen demonstrates no acute abnormalities. Evidence of prior granulomatous disease involving the spleen is seen. Excretion of contrast from bilateral kidneys is noted consistent with recent coronary angiography. There is a 2.7 cm mass in the left adrenal gland. The attenuation characteristics are nonspecific. Recommend further characterization with adrenal protocol MRI. Impression: 1. Extensive coronary calcification 2. 3 mm noncalcified nodule, left lower lobe. Recommend follow-up as described below 3. 2.7 cm mass in the left adrenal gland , with nonspecific attenuation characteristics. The absence of known malignancy this lesion is most likely benign in etiology such as an adenoma. However further characterization with MRI is recommended [employer]ischner [employer] pulmonary nodule recommendations 2017 guidelines Solid nodules Solitary nodule size: <6 mm low risk patients: no follow-up needed high risk patients: optional CT at 12 months Solitary nodule size: 6-8 mm low risk patients: follow-up at 6-12 months, then consider further follow-up at 18-24 months high risk patients: initial follow-up CT at 6-12 months and then at 18-24 months if no change Solitary nodule size: >8 mm either low or high risk patients consider follow-up CT at 3 months, and/or CT-PET, and/or biopsy Multiple nodules size: <6 mm low risk patients: no routine follow-up high risk patients: optional CT at 12 months Multiple nodules size: 6-8 mm low risk patients: follow-up at 3-6 months, then consider further follow-up at 18-24 months high risk patients: follow-up at 3-6 months, then at 18-24 months if no change Multiple nodules size: >8 mm low risk patients: follow-up at 3-6 months, then consider further follow-up at 18-24 months high risk patients: follow-up at 3-6 months, then at 18-24 months if no change Note: newly detected indeterminate nodule in persons 35 years of age or older. Low risk patients: minimal or absent history of smoking and or other known risk factors high risk patients: history of smoking or of other known risk factors (e.g. first degree relative with lung cancer, or exposure to asbestos, radon, uranium) nodule up to 8 mm is partly solid or is ground glass further follow-up is required after 24 months to exclude possible slow growing adenocarcinoma (SAHIL)
[2017-07-11] MEDS ORDERED: VANCOMYCIN 10GM VIAL for OR. TP ONE (08:49)
[2017-07-11] MEDS ORDERED: SURGICEL HEMOSTAT 4X8 EACH. TP ONE (08:49)
[2017-07-11] MEDS ORDERED: PAPAVERINE 60 MG/2 ML VIAL FOR OR ONLY. TP ONE (08:49)
[2017-07-11] MEDS ORDERED: ASPIRIN 300 MG SUPP.RECT PR ONE (08:49)
--- NOTE | 2017-07-11 08:52 | PDOC ---
GENERAL General: seen in holding area. anxious about surgery but ready. chest clear and heart regular and abdomen benign. for cabg x 3 today. Problems: VITAL SIGNS Vital Signs: Vital Signs Date Time Temp Pulse Resp B/P (MAP) Pulse Ox O2 Delivery O2 Flow Rate FiO2 07/11/17 07:09 98.3 82 15 166/79 97 Room Air 98.3 07/10/17 15:56 2.0 I & O I & O Intake and Output 07/11/17 07:00 Intake Total 700 ml Balance 700 ml Intake Oral 700 ml # Voids 4 ALLERGIES Allergies: Allergies Coded Allergies Type Severity Reaction Last Updated Verified codeine Adverse Reaction Mild upset stomach 07/10/17 Yes MEDS Medications: Current Medications Medications (Trade) Dose Ordered Sig/Teresa Start Time Stop Time Status Last Admin Dose Admin Alprazolam (Xanax) 0.5 mg TID 07/10/17 14:00 07/10/17 21:23 0.5 MG Aspirin (Children'S Aspirin) 243 mg 1X ONCE 07/10/17 08:00 07/10/17 08:02 DC 07/10/17 08:17 243 MG Aspirin (Ecotrin) 81 mg [id number] 07/10/17 11:00 Atorvastatin Calcium (Lipitor) 80 mg QHS 07/10/17 21:00 07/10/17 21:24 80 MG Cefazolin Sodium 1 gm/Sodium Chloride 500 ml @ 500 mls/hr 1X PERIOP ONCE 07/11/17 07:30 07/11/17 08:29 DC Cefazolin Sodium/ Dextrose 50 ml @ 100 mls/hr 1X ONCE 07/11/17 06:00 07/11/17 06:29 DC Desvenlafaxine Succinate (Pristiq Er) 50 mg DAILY 07/11/17 09:00 07/11/17 09:00 DC Dextrose (Dextrose 50%-Water Syringe) 12.5 gm PRN Q15MIN PRN 07/10/17 12:00 Fentanyl Citrate (Fentanyl 2ml Vial) 100 mcg 1X ONCE 07/10/17 15:45 07/10/17 15:46 DC 07/10/17 15:55 100 MCG Glimepiride (Amaryl) 2 mg DAILY 07/10/17 12:00 07/10/17 18:05 2 MG Heparin Sodium (Porcine) (Heparin Sodium) 2,500 unit 1X ONCE 07/10/17 15:45 07/10/17 15:46 DC 07/10/17 15:55 2,500 UNIT Heparin Sodium (Porcine) 16181 unit/Ringer's Solution 1,020 ml @ 1,020 mls/hr 1X PERIOP ONCE 07/11/17 07:30 07/11/17 08:29 DC Heparin Sodium/ Dextrose 500 ml @ 0 mls/hr CONT PRN 07/10/17 08:45 07/10/17 08:51 0 MLS/HR Heparin Sodium/ Sodium Chloride 1,000 unit 1X ONCE 07/10/17 15:45 07/10/17 15:46 DC 07/10/17 15:53 1,000 UNIT Hydralazine HCl (Apresoline Inj) 20 mg PRN Q4HRS PRN 07/10/17 17:45 07/10/17 21:27 20 MG Info (Do NOT chart on this entry -- for MONITORING) 1 each PRN DAILY PRN 07/10/17 15:45 07/12/17 15:44 Insulin Human Regular 150 unit/ Sodium Chloride 151.5 ml @ 0 mls/hr CONT PRN 07/11/17 07:45 Iohexol (Omnipaque 300 Mg/ml) 120 ml 1X ONCE 07/10/17 15:45 07/10/17 15:46 DC 07/10/17 15:54 120 ML Lactobacillus Rhamnosus (Culturelle) 1 cap TIDWMEALS 07/10/17 12:00 07/10/17 18:04 1 CAP Lamotrigine (LaMICtal) 200 mg QHS 07/10/17 21:00 07/10/17 21:23 200 MG Lidocaine HCl 1 ml 1X ONCE 07/10/17 15:45 07/10/17 15:46 DC 07/10/17 15:53 1 ML Lorazepam (Ativan) 1 mg PRN Q6HRS PRN 07/11/17 00:30 07/11/17 01:01 1 MG Lurasidone HCl (Latuda) 40 mg QHS 07/10/17 21:00 07/10/17 21:23 40 MG Metoprolol Tartrate (Lopressor) 25 mg 1X ONCE 07/10/17 17:45 07/10/17 17:46 DC 07/10/17 18:05 25 MG Midazolam HCl (Versed) 2 mg 1X ONCE 07/10/17 15:45 07/10/17 15:46 DC 07/10/17 15:55 2 MG Nitroglycerin (Nitroglycerin) 200 mcg 1X ONCE 07/10/17 15:45 07/10/17 15:46 DC 07/10/17 15:54 200 MCG Nitroglycerin (Nitrostat) 0.4 mg PRN Q5MIN PRN 07/10/17 08:00 07/10/17 08:17 0.4 MG Non-Formulary Medication 1 ea DAILY 07/11/17 09:00 Ondansetron HCl (Zofran) 4 mg PRN Q6HRS PRN 07/11/17 00:00 07/11/17 01:01 4 MG Pioglitazone HCl (Actos) 30 mg DAILY 07/10/17 12:00 07/10/17 18:05 30 MG Pneumococcal Polyvalent Vaccine (Do NOT chart on this placeholder) 1 each PRN 1X PRN 07/10/17 10:00 UNV Pneumococcal Polyvalent Vaccine (Pneumovax 23) 0.5 ml ONCE ONCE 07/10/17 11:00 07/10/17 11:01 DC Potassium Chloride 15 meq/ Sodium Bicarbonate 12.5 meq/Parenteral Electrolytes 520 ml @ 520 mls/hr 1X PERIOP ONCE 07/11/17 07:30 07/11/17 08:29 DC Potassium Chloride 70 meq/ Sodium Bicarbonate 12.5 meq/Lidocaine HCl 24 ml/Parenteral Electrolytes 571.5 ml @ 571.5 mls/ hr 1X PERIOP ONCE 07/11/17 07:30 07/11/17 08:29 DC Ringer's Solution 1,000 ml @ 50 mls/hr Q20H 07/11/17 07:00 07/11/17 18:59 07/11/17 07:00 50 MLS/HR Sodium Chloride 1,000 ml @ 60 mls/hr [id number] 07/10/17 09:47 07/11/17 03:23 DC 07/10/17 09:59 60 MLS/HR Verapamil HCl (Verapamil) 2.5 mg 1X ONCE 07/10/17 15:45 07/10/17 15:46 DC 07/10/17 15:54 2.5 MG Zolpidem Tartrate (Ambien) 5 mg PRN QHS PRN 07/10/17 17:45 LAB Lab: Laboratory Tests Test 07/10/17 11:29 07/10/17 14:05 07/10/17 16:15 07/10/17 21:22 Glucose (Fingerstick) 81 mg/dL (70-99) 95 mg/dL (70-99) 122 mg/dL (70-99) Troponin I Quantitative 0.090 ng/mL (0.000-0.055) Test 07/11/17 04:59 Glucose (Fingerstick) 163 mg/dL (70-99) CAIO HUITRON MD Jul 11, 2017 08:52
[2017-07-11] MEDS ORDERED: NON FORMULARY ITEM (Testosterone (Androgel) 1 PACKET) TP SCH (09:00)
[2017-07-11] MEDS: PIOGLITAZONE 15 MG TABLET. PO SCH (09:00)
[2017-07-11] MEDS: ANDROGEL TP SCH (09:00)
[2017-07-11] MEDS: GLIMEPIRIDE 2 MG TABLET. PO SCH (09:00)
[2017-07-11] MEDS: ALPRAZolam 0.5 MG TABLET PO SCH ×3 (09:00→20:41)
[2017-07-11] MEDS ORDERED: NON FORMULARY ITEM (Desvenlafaxine Succinate (Pristiq Er) 1 TAB) PO SCH (09:00)
[2017-07-11] MEDS ORDERED: DESVENLAFAXINE 25 MG TAB.ER.24H PO SCH (09:00)
--- NOTE | 2017-07-11 10:45 | RAD ---
APPROVED REPORT Patient Location: IN-PATIENT Laterality:Bilateral Indications PRE OP CABG Doppler Spectral Velocity Analysis Right Left pCCA 73/19 cm/spCCA 103/23 cm/s mCCA 73/19 cm/smCCA 102/23 cm/s dCCA 69/18 cm/sdCCA 70/17 cm/s ECA 101/ cm/sECA 71/ cm/s pICA 79/28 cm/spICA 99/37 cm/s Khanh 102/35 cm/smICA 113/40 cm/s dICA 112/44 cm/sdICA 85/33 cm/s Vert. 51/ cm/sVert. 38/ cm/s ICA/CCA 1.53ICA/CCA 1.10 Findings Connelly scale images of the bilateral common carotid and internal carotid vessels reveal mild intimal hy perplasia with mild atherosclerotic plaque in the carotid bulbs. Spectral waveforms and color Doppler does not reveal any evidence of high-grade disease. Based on spe ctral waveforms and velocities there is 0 to less than 50% stenosis. The bilateral vertebral velociti es are antegrade. Critical Notification Critical Value: No <Conclusion> No high grade carotid arterial disease.
--- NOTE | 2017-07-11 10:50 | RAD ---
APPROVED REPORT Patient Location: IN-PATIENT Indications PRE OP CABG Vein Measurements Great Saphenous Small Saphenous RightLeft RightLeft Saph-Fem. Junction 4.80mm5.30mmProximal 3.20mm3.80mm Mid Thigh 3.60mm3.80mmMid 2.80mm2.90mm Distal Thigh 2.80mm3.00mmDistal 2.80mm2.30mm Proximal Calf 2.50mm3.30mm Mid Calf 2.80mm2.70mm Distal Calf 3.00mm2.80mm Findings Connelly scale images of the bilateral greater and lesser saphenous veins do not demonstrate any evidence of thrombus. The vessels appear to be compressible bilaterally. The right great saphenous vein has adequate dimensions for bypass grafting conduit. The right lesser saphenous vein also has adequate dimensions for bypass conduit. The left greater saphenous vein splits in his course in the mid thigh but otherwise does not have any significant size limitations. The left lesser saphenous vein is also without any significant thrombu s or size issues. Critical Notification Critical Value: No <Conclusion> Adequate bypass conduit in the right and left great saphenous veins. Adequate bypass conduit in the r ight and left lesser saphenous veins. 2. Of note, the left great saphenous vein splits in the mid to distal thigh.
[2017-07-11] MEDS ORDERED: ROCURONIUM 50 MG/5 ML VIAL. ONE ×2 (10:55→13:44)
[2017-07-11] MEDS ORDERED: ALBUMIN HUMAN 5% 12.5 G/250 ML VIAL. IV ONE (12:00)
[2017-07-11] MEDS ORDERED: PROPOFOL 10 MG/ML (100ML) VIAL. IV ONE (12:00)
[2017-07-11] MEDS ORDERED: PROTAMINE 250 MG/25 ML VIAL IV ONE (12:31)
[2017-07-11] MEDS ORDERED: PROTAMINE 50 MG/5 ML VIAL. IV ONE (12:31)
[2017-07-11] MEDS ORDERED: SODIUM BICARB ADULT 8.4% 50 MEQ/50 ML DISP.SYRIN. ONE (12:59)
[2017-07-11] MEDS ORDERED: ceFAZolin 2GM PREMIX 2 GM/50 ML BAG IV ONE (13:00)
[2017-07-11] MEDS ORDERED: ALBUMIN HUMAN 5% 500 ML IV ONE (13:03)
[2017-07-11] MEDS ORDERED: ALBUTEROL SULFATE 2.5 MG/3 ML NEBU. NEB PRN (13:30)
[2017-07-11] MEDS ORDERED: DEXTROSE 50% 25 GM / 50ML DISP.SYRIN. IV PRN (13:30)
[2017-07-11] MEDS ORDERED: MEPERIDINE PF 25 MG/ML VIAL. IV PRN (13:30)
[2017-07-11] MEDS ORDERED: ACETAMINOPHEN 325 MG TABLET. PO PRN (13:30)
[2017-07-11] MEDS ORDERED: 0.9 % SODIUM CHLORIDE 10 ML DISP.SYRIN. IV PRN (13:30)
[2017-07-11] MEDS ORDERED: ELECTROLYTE (ICU) PROTOCOL. MC PRN (13:30)
[2017-07-11] MEDS ORDERED: KCL PER PROTOCOL MC PRN (13:30)
[2017-07-11] MEDS ORDERED: ASPIRIN 300 MG SUPP.RECT PR PRN (13:30)
[2017-07-11] MEDS ORDERED: ACETAMINOPHEN 650 MG SUPP.RECT. PR PRN (13:30)
[2017-07-11] MEDS ORDERED: PROPOFOL 100 ML IV PRN (13:30)
--- NOTE | 2017-07-11 13:44 | PDOC ---
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
--- NOTE | 2017-07-11 13:45 | PDOC4 ---
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 Langford [employer]ILD[employer] Metzger [facility] Anesthesiologist Rigoberto Mujica MD Anesthesia type General Blood loss Cellsaver IV fluids Crystalloid: 2700 mls Albumin: 500 mls Cellsaver: 350 mls Urine output 1000 mls Specimens obtained None Findings Good 2 mm RPDA, OM4 and LAD targets Good quality and size STILES Modest size and quality vein conduit Normal LV function Complications None Additional remarks CPB time: 115 min x clamp time: 86 min Indication The patient is a 62-year-old male who over the past several months has been complaining of angina on minimal exertion. He has a family history of ischemic heart disease, and a medical history of type 2 diabetes and hypertension. He had a stress test 10 days ago which was strongly positive. He was due to have an elective coronary angiogram next week but came to the emergency room two days ago after a severe episode of central chest pain radiating to his left arm and jaw or which woke him up in the middle and night. His troponin was negative. Coronary angiography yesterday demonstrated a very tight proximal to mid LAD stenosis, multiple tight lesions in the left circumflex, and a chronically occluded RCA. The RPDA back filled from left to right collaterals. His LV function is preserved. An echo did not show any valvular disease. A CABG was indicated. The risks, benefits and limitations of the procedure were explained to the patient who agreed to proceed. Informed consent was obtained. Operation After appropriate identification, the patient was brought to the operating room and placed supine on the operating table. Anesthesia was induced and the airway was secured with an endotracheal tube. A right IJ [place]-Livier catheter and a left radial arterial line were placed. Antibiotics were delivered and the patient was preped and draped in the usual standard surgical sterile fashion. A timeout was then performed. A median sternotomy was performed and the internal mammary artery was harvested, which was of good size with excellent flow. Simultaneously the left greater saphenous vein was harvested endoscopically, which was of modest quality and caliber. The pericardium was incised. The patient was heparinized. Cardiopulmonary bypass was established through the ascending aorta and the right atrium. The patient was cooled to 34. Myocardial protection was achieved with antegrade blood cardioplegia. The cross -clamp was applied and diastolic arrest was achieved. Intermittent dosages of cardioplegia were given. Grafts: Saphenous vein graft to right posterior descending coronary artery, end to side anastomosis with 7-0 Prolene. 2 mm vessel. Saphenous vein graft to obtuse marginal 4 coronary artery, end to side anastomosis with 7-0 Prolene. 2 mm vessel. Left internal mammary artery to left anterior descending, end to side anastomosis with 7-0 Prolene. 2 mm vessel Two proximal anastomosis were performed using a 6-0 Prolene running suture. The cross-clamp was removed. The heart was allowed to rewarm and reperfuse. The grafts were de-aired. The patient resumed normal sinus rhythm and was from cardiopulmonary bypass without pharmacologic support. Heparin was reversed with protamine. Atrial and ventricular pacing wires were placed. Hemostasis was confirmed. An angled 32 Frisian chest tube was placed in the left pleural space, a 32Fr angled in the posterior pericardium and a 32 straight in the anterior pericardium. The sternotomy was closed with six stainless steel wires. The incision was closed with a layer of 0 Vicryl followed by 2-0 Vicryl and then 4-0 Monocryl for the epidermis. Sterile dressings were applied. The total cardiopulmonary bypass time was 115 minutes and the cross-clamp time was 86 minutes. The instrument, sponge and needle counts were correct. The patient was then transferred to the ICU in critical. MEKHI PYLE MD Jul 11, 2017 13:45
[2017-07-11 13:53] LABS: HEMATOCRIT 23.4 % (39.0-53.0); HEMOGLOBIN 7.8 g/dL (13.0-17.5); RED BLOOD COUNT 2.74 x10^6/uL (4.30-5.70); RED CELL DISTRIBUTION WIDTH 14.6 % (11.5-14.5); WHITE BLOOD COUNT 12.3 x10^3/uL (4.0-11.0)
[2017-07-11] MEDS ORDERED: AMIODARONE 150 MG in IV DEXTROSE 5% 100 ML IV ONE (14:00)
[2017-07-11] MEDS ORDERED: AMIODARONE 900 MG in IV DEXTROSE 5% 500 ML IV PRN (14:00)
[2017-07-11 14:01] LABS: ART BE ISTAT 0 mmol/L (0-3); ART GLUC ISTAT 141 mg/dL (70-99); ART HCO3 ISTAT 24 mmol/L (21-28); ART HCT ISTAT 26 % (37-52); ART HGB ISTAT 8.8 g/dL (14-18); ART ION CA ISTAT 1.09 mmol/L (1.13-1.32); ART K ISTAT 3.9 mmol/L (3.5-5.0); ART NA ISTAT 139 mmol/L (135-145); ART PCO2 ISTAT 38 mmHg (35-45); ART PH ISTAT 7.41 (7.35-7.45); ART PO2 ISTAT 346 mmHg (75-100); ART SAT O2 SAT 100 % (95-99); ART TCO2 ISTAT 25 mmol/L (21-32); TOSPEC ART
[2017-07-11 14:02] LABS: ART BE ISTAT -1 mmol/L (0-3); ART GLUC ISTAT 143 mg/dL (70-99); ART HCO3 ISTAT 24 mmol/L (21-28); ART HCT ISTAT 35 % (37-52); ART HGB ISTAT 11.9 g/dL (14-18); ART ION CA ISTAT 1.25 mmol/L (1.13-1.32); ART NA ISTAT 140 mmol/L (135-145); ART PCO2 ISTAT 37 mmHg (35-45); ART PH ISTAT 7.42 (7.35-7.45); ART PO2 ISTAT 420 mmHg (75-100); ART SAT O2 SAT 100 % (95-99); ART TCO2 ISTAT 25 mmol/L (21-32); TOSPEC ART
[2017-07-11 14:02] LABS: ART BE ISTAT -1 mmol/L (0-3); ART GLUC ISTAT 152 mg/dL (70-99); ART HCO3 ISTAT 24 mmol/L (21-28); ART HCT ISTAT 26 % (37-52); ART HGB ISTAT 8.8 g/dL (14-18); ART ION CA ISTAT 1.13 mmol/L (1.13-1.32); ART K ISTAT 4.2 mmol/L (3.5-5.0); ART NA ISTAT 141 mmol/L (135-145); ART PCO2 ISTAT 37 mmHg (35-45); ART PH ISTAT 7.42 (7.35-7.45); ART PO2 ISTAT 235 mmHg (75-100); ART SAT O2 SAT 100 % (95-99); ART TCO2 ISTAT 25 mmol/L (21-32); TOSPEC ART
[2017-07-11 14:02] LABS: ART BE ISTAT -1 mmol/L (0-3); ART GLUC ISTAT 154 mg/dL (70-99); ART HCO3 ISTAT 24 mmol/L (21-28); ART HCT ISTAT 23 % (37-52); ART HGB ISTAT 7.8 g/dL (14-18); ART ION CA ISTAT 1.96 mmol/L (1.13-1.32); ART K ISTAT 3.8 mmol/L (3.5-5.0); ART NA ISTAT 137 mmol/L (135-145); ART PCO2 ISTAT 41 mmHg (35-45); ART PH ISTAT 7.38 (7.35-7.45); ART PO2 ISTAT 261 mmHg (75-100); ART SAT O2 SAT 100 % (95-99); ART TCO2 ISTAT 26 mmol/L (21-32); TOSPEC ART
[2017-07-11 14:02] LABS: ART BE ISTAT -2 mmol/L (0-3); ART GLUC ISTAT 150 mg/dL (70-99); ART HCO3 ISTAT 23 mmol/L (21-28); ART HCT ISTAT 33 % (37-52); ART HGB ISTAT 11.2 g/dL (14-18); ART ION CA ISTAT 1.22 mmol/L (1.13-1.32); ART K ISTAT 3.9 mmol/L (3.5-5.0); ART NA ISTAT 137 mmol/L (135-145); ART PCO2 ISTAT 39 mmHg (35-45); ART PH ISTAT 7.38 (7.35-7.45); ART PO2 ISTAT 382 mmHg (75-100); ART SAT O2 SAT 100 % (95-99); ART TCO2 ISTAT 24 mmol/L (21-32); TOSPEC ART
[2017-07-11 14:02] LABS: ART BE ISTAT -3 mmol/L (0-3); ART GLUC ISTAT 128 mg/dL (70-99); ART HCO3 ISTAT 23 mmol/L (21-28); ART HCT ISTAT 28 % (37-52); ART HGB ISTAT 9.5 g/dL (14-18); ART ION CA ISTAT 1.13 mmol/L (1.13-1.32); ART K ISTAT 5.4 mmol/L (3.5-5.0); ART NA ISTAT 139 mmol/L (135-145); ART PCO2 ISTAT 41 mmHg (35-45); ART PH ISTAT 7.35 (7.35-7.45); ART PO2 ISTAT 296 mmHg (75-100); ART SAT O2 SAT 100 % (95-99); ART TCO2 ISTAT 24 mmol/L (21-32); TOSPEC ART
[2017-07-11 14:02] LABS: ART BE ISTAT -2 mmol/L (0-3); ART GLUC ISTAT 100 mg/dL (70-99); ART HCO3 ISTAT 23 mmol/L (21-28); ART HCT ISTAT 22 % (37-52); ART HGB ISTAT 7.5 g/dL (14-18); ART K ISTAT 3.4 mmol/L (3.5-5.0); ART NA ISTAT 143 mmol/L (135-145); ART PCO2 ISTAT 39 mmHg (35-45); ART PH ISTAT 7.37 (7.35-7.45); ART PO2 ISTAT 395 mmHg (75-100); ART SAT O2 SAT 100 % (95-99); ART TCO2 ISTAT 24 mmol/L (21-32); TOSPEC ART
[2017-07-11 14:02] LABS: ART BE ISTAT -2 mmol/L (0-3); ART GLUC ISTAT 131 mg/dL (70-99); ART HCO3 ISTAT 23 mmol/L (21-28); ART HCT ISTAT 22 % (37-52); ART HGB ISTAT 7.5 g/dL (14-18); ART ION CA ISTAT 1.86 mmol/L (1.13-1.32); ART K ISTAT 3.4 mmol/L (3.5-5.0); ART NA ISTAT 139 mmol/L (135-145); ART PCO2 ISTAT 43 mmHg (35-45); ART PH ISTAT 7.34 (7.35-7.45); ART PO2 ISTAT 204 mmHg (75-100); ART SAT O2 SAT 100 % (95-99); ART TCO2 ISTAT 25 mmol/L (21-32); TOSPEC ART
[2017-07-11 14:05] LABS: INR 1.7 (0.8-1.1); PROTHROMBIN TIME PATIENT 18.5 SEC (11.7-14.0)
[2017-07-11] MEDS ORDERED: CLEVIDIPINE BUTYRATE 100 ML IV PRN (14:15)
--- NOTE | 2017-07-11 14:21 | RAD ---
Single view of the Chest 07/11/2017 2:00 AM Indication: POSTOP CABG SURGERY. Comparison: Chest radiograph, yesterday Findings: Interval median sternotomy. An endotracheal tube in place with tip approximately 5 cm above the iam. There is a [place]Livier catheter in place with tip in the pulmonary outflow tract. Mediastinal drainage catheters are present. A left thoracostomy tube is present. No pneumothorax, or pleural effusion is seen. No acute appearing consolidation is identified. Heart size is stable. Impression: 1. Support lines and tubes as described including endotracheal tube, [place]-Livier catheter, mediastinal drains, and left chest tube 2. No other acute cardiopulmonary process is seen
[2017-07-11] MEDS: ALBUMIN HUMAN 5% 250 ML IV PRN ×2 (14:38→15:02)
[2017-07-11] MEDS: MORPHINE SULFATE 2 MG/ML DISP.SYRIN. IV PRN ×2 (14:39→15:05)
[2017-07-11 14:41] LABS: BASE EXCESS COOX -6 mmol/L (-3-3); CARBON MONOXIDE 0.3 % (0.0-1.9); HCO3 COOX 19 mmol/L (21-28); METHEMOGLOBIN 0.7 % (0.0-1.9); OXYHEMOGLOBIN 97.7 %; PO2 COOX 338 mmHg (65-108); SAT O2 COOX 99 % (92-99); TOTAL HEMOGLOBIN 9.3 g/dL
[2017-07-11 14:42] LABS: FIO2 COOX 100%; PCO2 COOX 36 mmHg (35-46); PH COOX 7.35 (7.35-7.45)
[2017-07-11] MEDS ORDERED: SODIUM BICARB ADULT 8.4% 50 MEQ/50 ML DISP.SYRIN. IV ONE ×2 (14:45)
[2017-07-11] MEDS: IV RINGERS,LACTATED 1000ML 1,000 ML IV SCH (14:46)
--- NOTE | 2017-07-11 15:07 | EKG ---
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
[2017-07-11 15:28] LABS: GFR 75.5; MAGNESIUM 2.3 mg/dL (1.8-2.4); POTASSIUM 3.2 mmol/L (3.5-5.1)
[2017-07-11 16:45] LABS: HCO3 ABG 22 mmol/L (21-28); PCO2 ABG 30 mmHg (35-46); PO2 ABG 137 mmHg (65-108); SAT O2 ABG 98 % (92-99)
[2017-07-11 17:05] LABS: FIO2 ABG 40%
[2017-07-11] MEDS: oxyCODONE/APAP 5/325 1 TAB TABLET PO PRN ×2 (17:58→20:42)
[2017-07-11] MEDS: ONDANSETRON PF 4 MG/2 ML VIAL. IV PRN (17:58)
[2017-07-11 17:59] LABS: HEMATOCRIT 23.3 % (39.0-53.0); HEMOGLOBIN 7.7 g/dL (13.0-17.5); RED BLOOD COUNT 2.73 x10^6/uL (4.30-5.70); RED CELL DISTRIBUTION WIDTH 14.4 % (11.5-14.5); WHITE BLOOD COUNT 15.9 x10^3/uL (4.0-11.0)
[2017-07-11 18:06] LABS: CALCIUM 9.7 mg/dL (8.5-10.1); CREATININE 1.1 mg/dL (0.7-1.3); GFR 67.6; MAGNESIUM 1.9 mg/dL (1.8-2.4); POTASSIUM 3.5 mmol/L (3.5-5.1)
[2017-07-11] MEDS ORDERED: MAGNESIUM SULFATE 2GM 50 ML IV ONE (18:30)
[2017-07-11] MEDS: POTASSIUM CHLORIDE 20MEQ 50 ML IV SCH ×2 (18:55→20:07)
[2017-07-11] MEDS: FAMOTIDINE 20 MG/2 ML VIAL IVP SCH (20:47)
[2017-07-11] MEDS: ATORVASTATIN CALCIUM 40 MG TABLET. PO SCH (21:00)
[2017-07-11] MEDS: SENNOSIDES/DOCUSATE 8.6/50MG TABLET. PO SCH (21:00)
[2017-07-11] MEDS: POLYETHYLENE GLYCOL 3350 17 GM PACKET. PO SCH (21:00)
[2017-07-11] MEDS: lamoTRIgine 100 MG TABLET. PO SCH (21:00)
[2017-07-11] MEDS: LURASIDONE 40 MG TABLET. PO SCH (21:00)
[2017-07-11] MEDS: PROCHLORPERAZINE 10 MG/2 ML VIAL. IV PRN (22:39)
[2017-07-11] MEDS ORDERED: POTASSIUM CHLORIDE 20MEQ 50 ML IV ONE (23:00)
[2017-07-11] MEDS: METOPROLOL TART IMMED RELEASE 25 MG TABLET. PO SCH (23:50)
[2017-07-12] VITALS (34 sets, daily range): BP systolic 85–172; BP diastolic 44–89
[2017-07-12] MEDS ORDERED: NITROGLYCERIN PREMIX 250 ML IV PRN (00:30)
[2017-07-12] MEDS: MORPHINE SULFATE 2 MG/ML DISP.SYRIN. IV PRN ×2 (02:00→04:47)
[2017-07-12] MEDS: hydrALAZINE 20 MG/ML VIAL. IVP PRN (04:06)
[2017-07-12] MEDS: oxyCODONE/APAP 5/325 1 TAB TABLET PO PRN ×4 (04:15→20:02)
[2017-07-12] MEDS: PROCHLORPERAZINE 10 MG/2 ML VIAL. IV PRN ×2 (04:17→22:50)
[2017-07-12] MEDS: ONDANSETRON PF 4 MG/2 ML VIAL. IV PRN (05:33)
[2017-07-12 06:56] LABS: CALCIUM 9.5 mg/dL (8.5-10.1); CREATININE 1.1 mg/dL (0.7-1.3); GFR 67.6; POTASSIUM 4.4 mmol/L (3.5-5.1)
[2017-07-12 07:04] LABS: RED BLOOD COUNT 2.48 x10^6/uL (4.30-5.70); RED CELL DISTRIBUTION WIDTH 14.7 % (11.5-14.5); WHITE BLOOD COUNT 12.3 x10^3/uL (4.0-11.0)
[2017-07-12 07:15] LABS: HEMOGLOBIN 6.9 g/dL (13.0-17.5)
[2017-07-12] MEDS ORDERED: POTASSIUM CHLORIDE 20MEQ 50 ML IV ONE (07:30)
[2017-07-12] MEDS: MAGNESIUM SULFATE 1GM 100 ML IV PRN (07:57)
--- NOTE | 2017-07-12 08:43 | RAD ---
Single view chest History:POST OP An AP view of the chest is submitted. Comparison: 07/11/2017. Findings: There again has been a median sternotomy. Previously seen right internal jugular [place]-Livier catheter has been removed, now remaining right internal jugular vascular sheath. There is again left chest tube, also likely mediastinal drain. There is some linear atelectasis of the mid to inferior right hemithorax medially. There is no significant pleural fluid. No pneumothorax is identified. Cardiac silhouette is stable. Previously seen endotracheal tube has been removed. Impression: 1. There are postoperative findings of the chest as stated. There is atelectasis of the right hemithorax.
[2017-07-12] MEDS: LACTOBACILLUS RHAMNOSUS GG 1 CAPSULE. PO SCH ×3 (08:59→17:14)
[2017-07-12] MEDS: FAMOTIDINE 20 MG/2 ML VIAL IVP SCH ×3 (08:59→22:45)
[2017-07-12] MEDS: ASPIRIN ENTERIC COATED 325 MG TABLET.DR. PO SCH (08:59)
[2017-07-12] MEDS: SENNOSIDES/DOCUSATE 8.6/50MG TABLET. PO SCH ×2 (08:59→21:30)
[2017-07-12] MEDS: ALPRAZolam 0.5 MG TABLET PO SCH ×3 (08:59→21:39)
[2017-07-12] MEDS: AMIODARONE HCL 200 MG TABLET. PO SCH ×2 (09:00→21:39)
[2017-07-12] MEDS: PIOGLITAZONE 15 MG TABLET. PO SCH (09:00)
[2017-07-12] MEDS: GLIMEPIRIDE 2 MG TABLET. PO SCH (09:00)
[2017-07-12] MEDS: ANDROGEL TP SCH (09:00)
[2017-07-12] MEDS: METOPROLOL TART IMMED RELEASE 25 MG TABLET. PO SCH (10:13)
--- NOTE | 2017-07-12 10:51 | PDOC ---
GENERAL General: vss and afebrile. Hb 6.9 this am and transfusion underway. awake and alert but spell this am of confusion and speech alteration and will ask neuro opinion though had carotid dopplers preop and is on asa so suspect treated for any tia type event. chest with decreased breath sounds and heart regular and abdomen benign. sugars decent. overall doing well post-op. Problems: VITAL SIGNS Vital Signs: Vital Signs Date Time Temp Pulse Resp B/P (MAP) Pulse Ox O2 Delivery O2 Flow Rate FiO2 07/12/17 10:14 16 98 Nasal Cannula 2.0 07/12/17 10:13 96 134/59 07/12/17 10:00 98.9 98.9 I & O I & O Intake and Output 07/12/17 07:00 Intake Total 2367.3 ml Output Total 2145 ml Balance 222.3 ml Intake Oral 650 ml IV Total 1717.3 ml Output Urine Total 1430 ml Emesis 150 ml Chest Tube Drainage Total 565 ml ALLERGIES Allergies: Allergies Coded Allergies Type Severity Reaction Last Updated Verified codeine Adverse Reaction Mild upset stomach 07/11/17 Yes MEDS Medications: Current Medications Medications (Trade) Dose Ordered Sig/Teresa Start Time Stop Time Status Last Admin Dose Admin Acetaminophen (Acetaminophen Supp) 650 mg PRN Q4HRS PRN 07/11/17 13:30 Acetaminophen (Tylenol) 650 mg PRN Q4HRS PRN 07/11/17 13:30 Albumin Human 250 ml @ 60 mls/hr PRN Q4HRS PRN 07/11/17 13:30 07/11/17 15:02 60 MLS/HR Albuterol Sulfate (Ventolin Neb Soln) 2.5 mg PRN Q4HRS PRN 07/11/17 13:30 Alprazolam (Xanax) 0.5 mg TID 07/10/17 14:00 07/12/17 08:59 0.5 MG Amiodarone HCl (Cordarone) 400 mg BID 07/12/17 09:00 Amiodarone HCl 150 mg/Dextrose 103 ml @ 618 mls/hr 1X ONCE 07/11/17 14:00 07/11/17 14:09 DC 07/11/17 14:00 618 MLS/HR Amiodarone HCl 900 mg/Dextrose 518 ml @ 34.53 mls/ hr CONT PRN 07/11/17 14:00 07/11/17 14:43 DC 07/11/17 14:43 34.53 MLS/HR Aspirin (Aspirin) 300 mg PRN DAILY PRN 07/11/17 13:30 Aspirin (Children'S Aspirin) 243 mg 1X ONCE 07/10/17 08:00 07/10/17 08:02 DC 07/10/17 08:17 243 MG Aspirin (Ecotrin) 325 mg [id number] 07/12/17 08:00 07/12/17 08:59 325 MG Atorvastatin Calcium (Lipitor) 80 mg QHS 07/10/17 21:00 07/10/17 21:24 80 MG Cefazolin Sodium 1 gm/Sodium Chloride 500 ml @ 500 mls/hr 1X PERIOP ONCE 07/11/17 07:30 07/11/17 08:29 DC 07/11/17 08:49 Cefazolin Sodium/ Dextrose 50 ml @ 100 mls/hr Q8H 07/11/17 21:00 07/13/17 05:01 07/12/17 04:30 100 MLS/HR Cellulose 1 each STK-MED ONCE 07/11/17 08:49 07/11/17 09:47 DC 07/11/17 08:49 1 EACH Clevidipine 100 ml @ 0 mls/hr CONT PRN 07/11/17 14:15 Desvenlafaxine Succinate (Pristiq Er) 50 mg DAILY 07/11/17 09:00 07/11/17 09:00 DC Dextrose (Dextrose 50%-Water Syringe) 25 gm PRN Q15MIN PRN 07/11/17 13:30 Famotidine (Pepcid Vial) 20 mg BID 07/11/17 21:00 07/12/17 08:59 20 MG Fentanyl Citrate (Fentanyl 2ml Vial) 100 mcg 1X ONCE 07/10/17 15:45 07/10/17 15:46 DC 07/10/17 15:55 100 MCG Glimepiride (Amaryl) 2 mg DAILY 07/10/17 12:00 07/10/17 18:05 2 MG Heparin Sodium (Porcine) (Heparin Sodium) 2,500 unit 1X ONCE 07/10/17 15:45 07/10/17 15:46 DC 07/10/17 15:55 2,500 UNIT Heparin Sodium (Porcine) 83266 unit/Ringer's Solution 1,020 ml @ 1,020 mls/hr 1X PERIOP ONCE 07/11/17 07:30 07/11/17 08:29 DC 07/11/17 08:49 Heparin Sodium/ Dextrose 500 ml @ 0 mls/hr CONT PRN 07/10/17 08:45 07/12/17 09:47 DC 07/10/17 08:51 0 MLS/HR Heparin Sodium/ Sodium Chloride 1,000 unit 1X ONCE 07/10/17 15:45 07/10/17 15:46 DC 07/10/17 15:53 1,000 UNIT Hydralazine HCl (Apresoline Inj) 20 mg PRN Q4HRS PRN 07/10/17 17:45 07/12/17 04:06 20 MG Info 1 ea CONT PRN PRN 07/11/17 13:30 Info (Do NOT chart on this entry -- for MONITORING) 1 each PRN DAILY PRN 07/10/17 15:45 07/12/17 15:44 Insulin Human Regular 150 unit/ Sodium Chloride 151.5 ml @ 0 mls/hr CONT PRN PRN 07/11/17 13:30 Iohexol (Omnipaque 300 Mg/ml) 120 ml 1X ONCE 07/10/17 15:45 07/10/17 15:46 DC 07/10/17 15:54 120 ML Lactobacillus Rhamnosus (Culturelle) 1 cap TIDWMEALS 07/10/17 12:00 07/12/17 08:59 1 CAP Lamotrigine (LaMICtal) 200 mg QHS 07/10/17 21:00 07/10/17 21:23 200 MG Lidocaine HCl 1 ml 1X ONCE 07/10/17 15:45 07/10/17 15:46 DC 07/10/17 15:53 1 ML Lorazepam (Ativan) 1 mg PRN Q6HRS PRN 07/11/17 00:30 07/11/17 01:01 1 MG Lurasidone HCl (Latuda) 40 mg QHS 07/10/17 21:00 07/10/17 21:23 40 MG Magnesium Sulfate/ Dextrose 50 ml @ 25 mls/hr 1X ONCE 07/11/17 18:30 07/11/17 20:29 DC 07/11/17 18:55 25 MLS/HR Meperidine HCl (Demerol) 12.5 mg PRN Q15MIN PRN 07/11/17 13:30 07/12/17 13:17 Metoprolol Tartrate (Lopressor) 25 mg BID 07/12/17 09:00 07/12/17 10:13 25 MG Midazolam HCl (Versed) 2 mg 1X ONCE 07/10/17 15:45 07/10/17 15:46 DC 07/10/17 15:55 2 MG Morphine Sulfate 2 mg PRN Q1HR PRN 07/11/17 13:30 07/12/17 04:47 2 MG Nicardipine HCl 50 mg/Sodium Chloride 270 ml @ 0 mls/hr CONT PRN PRN 07/11/17 13:30 Nitroglycerin (Nitroglycerin) 200 mcg 1X ONCE 07/10/17 15:45 07/10/17 15:46 DC 07/10/17 15:54 200 MCG Nitroglycerin (Nitrostat) 0.4 mg PRN Q5MIN PRN 07/10/17 08:00 07/10/17 08:17 0.4 MG Nitroglycerin/ Dextrose 250 ml @ 0 mls/hr CONT PRN 07/12/17 00:30 07/11/17 22:00 1.5 MLS/HR Non-Formulary Medication 1 ea DAILY 07/11/17 09:00 07/12/17 09:00 1 EA Ondansetron HCl (Zofran) 4 mg PRN Q4HRS PRN 07/11/17 13:30 07/12/17 05:33 4 MG Oxycodone/ Acetaminophen (Percocet 5/325) 2 tab PRN Q4HRS PRN 07/11/17 13:30 07/12/17 10:14 2 TAB Papaverine HCl 60 mg STK-MED ONCE 07/11/17 08:49 07/11/17 09:47 DC 07/11/17 08:49 60 MG Pioglitazone HCl (Actos) 30 mg DAILY 07/10/17 12:00 07/10/17 18:05 30 MG Pneumococcal Polyvalent Vaccine (Do NOT chart on this placeholder) 1 each PRN 1X PRN 07/10/17 10:00 UNV Pneumococcal Polyvalent Vaccine (Pneumovax 23) 0.5 ml ONCE ONCE 07/10/17 11:00 07/10/17 11:01 DC Polyethylene Glycol (miraLAX PACKET) 17 gm HS 07/11/17 21:00 Potassium Chloride 15 meq/ Sodium Bicarbonate 12.5 meq/Parenteral Electrolytes 520 ml @ 520 mls/hr 1X PERIOP ONCE 07/11/17 07:30 07/11/17 08:29 DC 07/11/17 07:30 520 MLS/HR Potassium Chloride 70 meq/ Sodium Bicarbonate 12.5 meq/Lidocaine HCl 24 ml/Parenteral Electrolytes 571.5 ml @ 571.5 mls/ hr 1X PERIOP ONCE 07/11/17 07:30 07/11/17 08:29 DC 07/11/17 07:30 571.5 MLS/HR Potassium Chloride 50 ml @ 50 mls/hr 1X ONCE 07/12/17 07:30 07/12/17 08:29 DC 07/12/17 07:56 50 MLS/HR Prochlorperazine Edisylate (Compazine) 10 mg PRN Q6HRS PRN 07/11/17 22:30 07/12/17 04:17 10 MG Propofol 100 ml @ 0 mls/hr CONT PRN PRN 07/11/17 13:30 Ringer's Solution 1,000 ml @ 30 mls/hr Q24H 07/11/17 13:17 07/11/17 14:46 30 MLS/HR Senna/Docusate Sodium (Senna Plus) 1 tab BID 07/11/17 21:00 07/12/17 08:59 1 TAB Sodium Bicarbonate 50 meq 1X ONCE 07/11/17 14:45 07/11/17 14:46 DC 07/11/17 14:44 50 MEQ Sodium Chloride (Normal Saline Flush) 3 ml PRN Q12HR PRN 07/11/17 13:30 Vancomycin HCl (Vanco) 10 gm STK-MED ONCE 07/11/17 08:49 07/11/17 09:47 DC 07/11/17 08:49 10 GM Verapamil HCl (Verapamil) 2.5 mg 1X ONCE 07/10/17 15:45 07/10/17 15:46 DC 07/10/17 15:54 2.5 MG Zolpidem Tartrate (Ambien) 5 mg PRN QHS PRN 07/10/17 17:45 LAB Lab: Laboratory Tests Test 07/11/17 11:01 07/11/17 11:29 07/11/17 11:30 07/11/17 12:01 Bedside Hemoglobin (Calculated) 9.5 g/dL (14-18) 8.8 g/dL (14-18) 8.8 g/dL (14-18) Bedside Hematocrit 28 % (37-52) 26 % (37-52) 26 % (37-52) Activated Clotting Time 479 SEC (90-125) 474 SEC (90-125) 548 SEC (90-125) Bedside Arterial pH 7.35 (7.35-7.45) 7.41 (7.35-7.45) 7.42 (7.35-7.45) Bedside Arterial pCO2 41 mmHg (35-45) 38 mmHg (35-45) 37 mmHg (35-45) Bedside Arterial pO2 296 mmHg (75-100) 346 mmHg (75-100) 235 mmHg (75-100) Bedside Arterial HCO3 23 mmol/L (21-28) 24 mmol/L (21-28) 24 mmol/L (21-28) Bedside Arterial Total CO2 24 mmol/L (21-32) 25 mmol/L (21-32) 25 mmol/L (21-32) Arterial Bld O2 Saturation (Measur) 100 % (95-99) 100 % (95-99) 100 % (95-99) Bedside Arterial Blood Base Excess -3 mmol/L (0-3) 0 mmol/L (0-3) -1 mmol/L (0-3) Bedside FiO2 70.0 70.0 70.0 Bedside Sodium 139 mmol/L (135-145) 139 mmol/L (135-145) 141 mmol/L (135-145) Bedside Potassium 5.4 mmol/L (3.5-5.0) 3.9 mmol/L (3.5-5.0) 4.2 mmol/L (3.5-5.0) Glucose Level 128 mg/dL (70-99) 141 mg/dL (70-99) 152 mg/dL (70-99) Bedside Ionized Calcium (Jeaneth) 1.13 mmol/L (1.13-1.32) 1.09 mmol/L (1.13-1.32) 1.13 mmol/L (1.13-1.32) Test 07/11/17 12:30 07/11/17 12:31 07/11/17 13:02 07/11/17 13:17 Activated Clotting Time 429 SEC (90-125) 108 SEC (90-125) Bedside Hemoglobin (Calculated) 7.8 g/dL (14-18) 7.5 g/dL (14-18) Bedside Hematocrit 23 % (37-52) 22 % (37-52) Bedside Arterial pH 7.38 (7.35-7.45) 7.34 (7.35-7.45) Bedside Arterial pCO2 41 mmHg (35-45) 43 mmHg (35-45) Bedside Arterial pO2 261 mmHg (75-100) 204 mmHg (75-100) Bedside Arterial HCO3 24 mmol/L (21-28) 23 mmol/L (21-28) Bedside Arterial Total CO2 26 mmol/L (21-32) 25 mmol/L (21-32) Arterial Bld O2 Saturation (Measur) 100 % (95-99) 100 % (95-99) Bedside Arterial Blood Base Excess -1 mmol/L (0-3) -2 mmol/L (0-3) Bedside FiO2 80.0 100.0 Bedside Sodium 137 mmol/L (135-145) 139 mmol/L (135-145) Bedside Potassium 3.8 mmol/L (3.5-5.0) 3.4 mmol/L (3.5-5.0) Glucose Level 154 mg/dL (70-99) 131 mg/dL (70-99) Bedside Ionized Calcium (Jeaneth) 1.96 mmol/L (1.13-1.32) 1.86 mmol/L (1.13-1.32) O2 Saturation 99 % (92-99) Arterial Blood pH 7.35 (7.35-7.45) Arterial Blood pCO2 at Patient Temp 36 mmHg (35-46) Arterial Blood pO2 at Patient Temp 338 mmHg (65-108) Arterial Blood HCO3 19 mmol/L (21-28) Arterial Blood Base Excess -6 mmol/L (-3-3) Oxyhemoglobin 97.7 % Methemoglobin 0.7 % (0.0-1.9) Carbon Monoxide, Quantitative 0.3 % (0.0-1.9) FiO2 100% Test 07/11/17 13:40 07/11/17 13:43 07/11/17 15:00 07/11/17 15:05 White Blood Count 12.3 x10^3/uL (4.0-11.0) Red Blood Count 2.74 x10^6/uL (4.30-5.70) Hemoglobin 7.8 g/dL (13.0-17.5) Hematocrit 23.4 % (39.0-53.0) Mean Corpuscular Volume 85 fL (79-100) Mean Corpuscular Hemoglobin 29 pg (25-35) Mean Corpuscular Hemoglobin Concent 33 g/dL (31-37) Red Cell Distribution Width 14.6 % (11.5-14.5) Platelet Count 150 x10^3/uL (140-400) Prothrombin Time 18.5 SEC (11.7-14.0) Prothromb Time International Ratio 1.7 (0.8-1.1) Activated Partial Thromboplast Time 32 SEC (24-38) Bedside Hemoglobin (Calculated) 7.5 g/dL (14-18) Bedside Hematocrit 22 % (37-52) Bedside Arterial pH 7.37 (7.35-7.45) Bedside Arterial pCO2 39 mmHg (35-45) Bedside Arterial pO2 395 mmHg (75-100) Bedside Arterial HCO3 23 mmol/L (21-28) Bedside Arterial Total CO2 24 mmol/L (21-32) Arterial Bld O2 Saturation (Measur) 100 % (95-99) Bedside Arterial Blood Base Excess -2 mmol/L (0-3) Bedside FiO2 100.0 Bedside Sodium 143 mmol/L (135-145) Bedside Potassium 3.4 mmol/L (3.5-5.0) Glucose Level 100 mg/dL (70-99) 137 mg/dL (70-99) Bedside Ionized Calcium (Jeaneth) 1.60 mmol/L (1.13-1.32) Glucose (Fingerstick) 151 mg/dL (70-99) Sodium Level 146 mmol/L (136-145) Potassium Level 3.2 mmol/L (3.5-5.1) Chloride Level 112 mmol/L (98-107) Carbon Dioxide Level 22 mmol/L (21-32) Anion Gap 12 (6-14) Blood Urea Nitrogen 15 mg/dL (8-26) Creatinine 1.0 mg/dL (0.7-1.3) Estimated GFR (Cockcroft-Gault) 75.5 Calcium Level 10.0 mg/dL (8.5-10.1) Magnesium Level 2.3 mg/dL (1.8-2.4) Test 07/11/17 16:08 07/11/17 16:39 07/11/17 16:43 07/11/17 17:49 Glucose (Fingerstick) 160 mg/dL (70-99) 190 mg/dL (70-99) 211 mg/dL (70-99) O2 Saturation 98 % (92-99) Arterial Blood pH 7.50 (7.35-7.45) Arterial Blood pCO2 at Patient Temp 30 mmHg (35-46) Arterial Blood pO2 at Patient Temp 137 mmHg (65-108) Arterial Blood HCO3 22 mmol/L (21-28) Arterial Blood Base Excess -1 mmol/L (-3-3) FiO2 40% Test 07/11/17 17:50 07/11/17 18:55 07/11/17 20:04 07/11/17 21:03 White Blood Count 15.9 x10^3/uL (4.0-11.0) Red Blood Count 2.73 x10^6/uL (4.30-5.70) Hemoglobin 7.7 g/dL (13.0-17.5) Hematocrit 23.3 % (39.0-53.0) Mean Corpuscular Volume 85 fL (79-100) Mean Corpuscular Hemoglobin 28 pg (25-35) Mean Corpuscular Hemoglobin Concent 33 g/dL (31-37) Red Cell Distribution Width 14.4 % (11.5-14.5) Platelet Count 189 x10^3/uL (140-400) Sodium Level 146 mmol/L (136-145) Potassium Level 3.5 mmol/L (3.5-5.1) Chloride Level 111 mmol/L (98-107) Carbon Dioxide Level 24 mmol/L (21-32) Anion Gap 11 (6-14) Blood Urea Nitrogen 15 mg/dL (8-26) Creatinine 1.1 mg/dL (0.7-1.3) Estimated GFR (Cockcroft-Gault) 67.6 Glucose Level 210 mg/dL (70-99) Calcium Level 9.7 mg/dL (8.5-10.1) Magnesium Level 1.9 mg/dL (1.8-2.4) Glucose (Fingerstick) 167 mg/dL (70-99) 137 mg/dL (70-99) 131 mg/dL (70-99) Test 07/11/17 21:40 07/11/17 22:08 07/11/17 23:07 07/12/17 00:03 Potassium Level 4.4 mmol/L (3.5-5.1) Glucose (Fingerstick) 135 mg/dL (70-99) 130 mg/dL (70-99) 121 mg/dL (70-99) Test 07/12/17 01:04 07/12/17 02:06 07/12/17 03:06 07/12/17 04:09 Glucose (Fingerstick) 152 mg/dL (70-99) 142 mg/dL (70-99) 135 mg/dL (70-99) 128 mg/dL (70-99) Test 07/12/17 05:14 07/12/17 06:00 07/12/17 06:20 07/12/17 06:25 Glucose (Fingerstick) 148 mg/dL (70-99) 211 mg/dL (70-99) White Blood Count 12.3 x10^3/uL (4.0-11.0) Red Blood Count 2.48 x10^6/uL (4.30-5.70) Hemoglobin 6.9 g/dL (13.0-17.5) Hematocrit 21.0 % (39.0-53.0) Mean Corpuscular Volume 85 fL (79-100) Mean Corpuscular Hemoglobin 28 pg (25-35) Mean Corpuscular Hemoglobin Concent 33 g/dL (31-37) Red Cell Distribution Width 14.7 % (11.5-14.5) Platelet Count 168 x10^3/uL (140-400) Sodium Level 144 mmol/L (136-145) Potassium Level 4.4 mmol/L (3.5-5.1) Chloride Level 112 mmol/L (98-107) Carbon Dioxide Level 22 mmol/L (21-32) Anion Gap 10 (6-14) Blood Urea Nitrogen 16 mg/dL (8-26) Creatinine 1.1 mg/dL (0.7-1.3) Estimated GFR (Cockcroft-Gault) 67.6 Glucose Level 163 mg/dL (70-99) Calcium Level 9.5 mg/dL (8.5-10.1) Magnesium Level 2.0 mg/dL (1.8-2.4) Test 07/12/17 07:43 07/12/17 08:56 Glucose (Fingerstick) 156 mg/dL (70-99) 147 mg/dL (70-99) CAIO HUITRON MD Jul 12, 2017 10:51
--- NOTE | 2017-07-12 11:07 | HP ---
ADMIT DATE: 07/10/2017 CHIEF COMPLAINT AND HISTORY OF PRESENT ILLNESS: This 62-year-old white male is well known to me from followup in the office. The patient over the last couple of weeks presented with a story consistent with angina, had an outpatient stress testing that was extremely abnormal. He was sent to see Cardiology who agreed he needed a heart catheterization. However, on the morning of admission awoke with worsening of his symptoms, presented to the Emergency Room where he was admitted for the same and heart catheterization to take place. PAST MEDICAL HISTORY: Remarkable for diabetes, bipolar disease, depression, which has been very well controlled since the addition of Latuda. He has some osteoarthritis. He has had some low testosterone. MEDICATIONS: Brought with the patient, listed on the computer and have been addressed. ALLERGIES: HE IS ALLERGIC TO CODEINE. SOCIAL HISTORY: He is a nonsmoker, nondrinker. Occasionally uses marijuana. Lives with family. FAMILY HISTORY: Positive for premature coronary artery disease with the father had a coronary artery bypass graft at age 50. REVIEW OF SYSTEMS: Remarkable for classic anginal symptoms. PHYSICAL EXAMINATION: GENERAL: He is a well-developed, well-nourished white male, in no acute distress at rest. VITAL SIGNS: Stable. He is afebrile. HEAD, EYES, EARS, NOSE, THROAT: Unremarkable. NECK: Supple, without thyromegaly. CHEST: Clear to auscultation and percussion. HEART: Regular rate and rhythm without S3, S4 or murmur. ABDOMEN: Soft, nontender, without hepatosplenomegaly or masses. EXTREMITIES: Without cyanosis, clubbing, edema. NEUROLOGIC: He is intact. IMPRESSION: Unstable angina with abnormal stress testing and other problems listed above. PLAN: The patient has been admitted. Cardiology has been consulted. He will need heart catheterization with plans to follow up. CAIO HUITRON MD DR: [email or web address]/delfina JOB#: [id number] / [id number]
[2017-07-12] MEDS ORDERED: AMIODARONE 900 MG in IV DEXTROSE 5% 500 ML IV PRN (11:45)
[2017-07-12] MEDS ORDERED: AMIODARONE HCL 200 MG TABLET. PO ONE (12:30)
[2017-07-12] MEDS: KETOROLAC 15 MG/ML VIAL. IV PRN ×2 (12:40→19:51)
[2017-07-12] MEDS: IV RINGERS,LACTATED 1000ML 1,000 ML IV SCH (12:42)
--- NOTE | 2017-07-12 12:44 | PDOC ---
Progress Note Subjective Subjective Fast track extubation yesterday. Doing very well this afternoon. Had some confusion this morning, which I am not concerned about and has now completely resolved. Normotensive and in SR. On 2 lit NC. Hb 6.9 this am, receiving 2 units PRBCs. CXR looks great. Tube output minimal. Creat 1.1 ROS ROS No nausea No SOB No vomiting No pain No rash Vital Sign Vital Signs Vital Signs Date Time Temp Pulse Resp B/P (MAP) Pulse Ox O2 Delivery O2 Flow Rate FiO2 07/12/17 12:00 98.5 78 18 97/59 98.5 07/12/17 11:18 97 Nasal Cannula 2.0 Physical Exam PHYSICAL EXAM GENERAL: NAD, Alert HEENT: PERRL, OC/OP NECK: Supple, no JVD, no LN LUNGS: Clear HEART: S1S2, no gallop, no murmur ABD: Soft, NT, no organomegaly, no rebound EXT: No edema, no cyanosis STREET SPRINKLER: Alert, oriented x 3, no focal neurologic deficit SKIN: No rash IV: ok Labs Lab Laboratory Tests Test 07/11/17 12:31 07/11/17 13:02 07/11/17 13:17 07/11/17 13:40 Bedside Hemoglobin (Calculated) 7.8 g/dL (14-18) 7.5 g/dL (14-18) Bedside Hematocrit 23 % (37-52) 22 % (37-52) Bedside Arterial pH 7.38 (7.35-7.45) 7.34 (7.35-7.45) Bedside Arterial pCO2 41 mmHg (35-45) 43 mmHg (35-45) Bedside Arterial pO2 261 mmHg (75-100) 204 mmHg (75-100) Bedside Arterial HCO3 24 mmol/L (21-28) 23 mmol/L (21-28) Bedside Arterial Total CO2 26 mmol/L (21-32) 25 mmol/L (21-32) Arterial Bld O2 Saturation (Measur) 100 % (95-99) 100 % (95-99) Bedside Arterial Blood Base Excess -1 mmol/L (0-3) -2 mmol/L (0-3) Bedside FiO2 80.0 100.0 Bedside Sodium 137 mmol/L (135-145) 139 mmol/L (135-145) Bedside Potassium 3.8 mmol/L (3.5-5.0) 3.4 mmol/L (3.5-5.0) Glucose Level 154 mg/dL (70-99) 131 mg/dL (70-99) Bedside Ionized Calcium (Jeaneth) 1.96 mmol/L (1.13-1.32) 1.86 mmol/L (1.13-1.32) Activated Clotting Time 108 SEC (90-125) O2 Saturation 99 % (92-99) Arterial Blood pH 7.35 (7.35-7.45) Arterial Blood pCO2 at Patient Temp 36 mmHg (35-46) Arterial Blood pO2 at Patient Temp 338 mmHg (65-108) Arterial Blood HCO3 19 mmol/L (21-28) Arterial Blood Base Excess -6 mmol/L (-3-3) Oxyhemoglobin 97.7 % Methemoglobin 0.7 % (0.0-1.9) Carbon Monoxide, Quantitative 0.3 % (0.0-1.9) FiO2 100% White Blood Count 12.3 x10^3/uL (4.0-11.0) Red Blood Count 2.74 x10^6/uL (4.30-5.70) Hemoglobin 7.8 g/dL (13.0-17.5) Hematocrit 23.4 % (39.0-53.0) Mean Corpuscular Volume 85 fL (79-100) Mean Corpuscular Hemoglobin 29 pg (25-35) Mean Corpuscular Hemoglobin Concent 33 g/dL (31-37) Red Cell Distribution Width 14.6 % (11.5-14.5) Platelet Count 150 x10^3/uL (140-400) Prothrombin Time 18.5 SEC (11.7-14.0) Prothromb Time International Ratio 1.7 (0.8-1.1) Activated Partial Thromboplast Time 32 SEC (24-38) Test 07/11/17 13:43 07/11/17 15:00 07/11/17 15:05 07/11/17 16:08 Bedside Hemoglobin (Calculated) 7.5 g/dL (14-18) Bedside Hematocrit 22 % (37-52) Bedside Arterial pH 7.37 (7.35-7.45) Bedside Arterial pCO2 39 mmHg (35-45) Bedside Arterial pO2 395 mmHg (75-100) Bedside Arterial HCO3 23 mmol/L (21-28) Bedside Arterial Total CO2 24 mmol/L (21-32) Arterial Bld O2 Saturation (Measur) 100 % (95-99) Bedside Arterial Blood Base Excess -2 mmol/L (0-3) Bedside FiO2 100.0 Bedside Sodium 143 mmol/L (135-145) Bedside Potassium 3.4 mmol/L (3.5-5.0) Glucose Level 100 mg/dL (70-99) 137 mg/dL (70-99) Bedside Ionized Calcium (Jeaneth) 1.60 mmol/L (1.13-1.32) Glucose (Fingerstick) 151 mg/dL (70-99) 160 mg/dL (70-99) Sodium Level 146 mmol/L (136-145) Potassium Level 3.2 mmol/L (3.5-5.1) Chloride Level 112 mmol/L (98-107) Carbon Dioxide Level 22 mmol/L (21-32) Anion Gap 12 (6-14) Blood Urea Nitrogen 15 mg/dL (8-26) Creatinine 1.0 mg/dL (0.7-1.3) Estimated GFR (Cockcroft-Gault) 75.5 Calcium Level 10.0 mg/dL (8.5-10.1) Magnesium Level 2.3 mg/dL (1.8-2.4) Test 07/11/17 16:39 07/11/17 16:43 07/11/17 17:49 07/11/17 17:50 O2 Saturation 98 % (92-99) Arterial Blood pH 7.50 (7.35-7.45) Arterial Blood pCO2 at Patient Temp 30 mmHg (35-46) Arterial Blood pO2 at Patient Temp 137 mmHg (65-108) Arterial Blood HCO3 22 mmol/L (21-28) Arterial Blood Base Excess -1 mmol/L (-3-3) FiO2 40% Glucose (Fingerstick) 190 mg/dL (70-99) 211 mg/dL (70-99) White Blood Count 15.9 x10^3/uL (4.0-11.0) Red Blood Count 2.73 x10^6/uL (4.30-5.70) Hemoglobin 7.7 g/dL (13.0-17.5) Hematocrit 23.3 % (39.0-53.0) Mean Corpuscular Volume 85 fL (79-100) Mean Corpuscular Hemoglobin 28 pg (25-35) Mean Corpuscular Hemoglobin Concent 33 g/dL (31-37) Red Cell Distribution Width 14.4 % (11.5-14.5) Platelet Count 189 x10^3/uL (140-400) Sodium Level 146 mmol/L (136-145) Potassium Level 3.5 mmol/L (3.5-5.1) Chloride Level 111 mmol/L (98-107) Carbon Dioxide Level 24 mmol/L (21-32) Anion Gap 11 (6-14) Blood Urea Nitrogen 15 mg/dL (8-26) Creatinine 1.1 mg/dL (0.7-1.3) Estimated GFR (Cockcroft-Gault) 67.6 Glucose Level 210 mg/dL (70-99) Calcium Level 9.7 mg/dL (8.5-10.1) Magnesium Level 1.9 mg/dL (1.8-2.4) Test 07/11/17 18:55 07/11/17 20:04 07/11/17 21:03 07/11/17 21:40 Glucose (Fingerstick) 167 mg/dL (70-99) 137 mg/dL (70-99) 131 mg/dL (70-99) Potassium Level 4.4 mmol/L (3.5-5.1) Test 07/11/17 22:08 07/11/17 23:07 07/12/17 00:03 07/12/17 01:04 Glucose (Fingerstick) 135 mg/dL (70-99) 130 mg/dL (70-99) 121 mg/dL (70-99) 152 mg/dL (70-99) Test 07/12/17 02:06 07/12/17 03:06 07/12/17 04:09 07/12/17 05:14 Glucose (Fingerstick) 142 mg/dL (70-99) 135 mg/dL (70-99) 128 mg/dL (70-99) 148 mg/dL (70-99) Test 07/12/17 06:00 07/12/17 06:20 07/12/17 06:25 07/12/17 07:43 White Blood Count 12.3 x10^3/uL (4.0-11.0) Red Blood Count 2.48 x10^6/uL (4.30-5.70) Hemoglobin 6.9 g/dL (13.0-17.5) Hematocrit 21.0 % (39.0-53.0) Mean Corpuscular Volume 85 fL (79-100) Mean Corpuscular Hemoglobin 28 pg (25-35) Mean Corpuscular Hemoglobin Concent 33 g/dL (31-37) Red Cell Distribution Width 14.7 % (11.5-14.5) Platelet Count 168 x10^3/uL (140-400) Glucose (Fingerstick) 211 mg/dL (70-99) 156 mg/dL (70-99) Sodium Level 144 mmol/L (136-145) Potassium Level 4.4 mmol/L (3.5-5.1) Chloride Level 112 mmol/L (98-107) Carbon Dioxide Level 22 mmol/L (21-32) Anion Gap 10 (6-14) Blood Urea Nitrogen 16 mg/dL (8-26) Creatinine 1.1 mg/dL (0.7-1.3) Estimated GFR (Cockcroft-Gault) 67.6 Glucose Level 163 mg/dL (70-99) Calcium Level 9.5 mg/dL (8.5-10.1) Magnesium Level 2.0 mg/dL (1.8-2.4) Test 07/12/17 08:56 07/12/17 10:04 07/12/17 11:06 07/12/17 12:09 Glucose (Fingerstick) 147 mg/dL (70-99) 152 mg/dL (70-99) 183 mg/dL (70-99) 178 mg/dL (70-99) Objective Assessment POD#1 s/p CABG x 3 (STILES to LAD, SVG to RPDA, SVG to OM4). Fast track extubation yesterday. Doing very well this afternoon. Had some confusion this morning, which I am not concerned about and has now completely resolved. Normotensive and in SR. On 2 lit NC. Hb 6.9 this am, receiving 2 units PRBCs. CXR looks great. Tube output minimal. Creat 1.1 Plan Plan of Care D/c [place]-Livier D/c a-line D/c mediastinal tubes Switch amiodarone drip to po for AFib prophylaxis Will try iv Toradol for pain control. Possible interaction of narcotics with antidepressants / benzos which may have contributed to his confusion this morning ASA, b michele, statin OK to restart home oral hypoglycemic medications + sliding scale and wean insulin drip Restart home bipolar meds Encourage po intake. May need some iv fluids if intake not improved Ambulation and pulmonary toilet JANIE PYLE MD Jul 12, 2017 12:44
--- NOTE | 2017-07-12 16:04 | PDOC2 ---
CONSULT Date of Consult Date of Consult DATE: 07/12/17 TIME: 16:02 Reason for Consult Reason for Consult: slurring of speech, word finding difficulty Identification/Chief Complaint Chief Complaint Slurring of speech, word finding difficulty History of Present Illness Reason for Visit: This patient is 62-year-old man who presented with angina patient had outpatient stress testing which was abnormal. Patient was seen by cardiology for heart catheterization. Patient is currently status post CABG. Patient has episode this morning when he was confused patient was not able to use right words patient was having some word finding difficulties. Patient does not have any numbness on his face. Patient does not have any focal weakness in any arms are legs. Patient currently feels back to baseline does not have any problems speaking does not have any numbness on his face patient denies any complaint of chest pain dizziness shortness of breath or any weakness. Patient is currently relaxing in his bed with no new complaints. Status post CABG history of coronary artery disease. Episodes concerning for possible TIA. MRI brain cannot be done due to current medical condition. We will get CT scan on the brain noncontrast to rule out any acute process. Continue aspirin for secondary stroke prevention. Check lipid profile, statin PTOT speech evaluation. Check 2-D echo, carotid Doppler. Continue medical management. Past Medical History Cardiovascular: No pertinent hx Pulmonary: No pertinent hx CENTRAL NERVOUS SYSTEM: Other (No pertinent history) GI: No pertinent hx Heme/Onc: No pertinent hx Hepatobiliary: No pertinent hx Psych: Bipolar Musculoskeletal: Osteoarthritis Rheumatologic: No pertinent hx Infectious disease: No pertinent hx ENT: No pertinent hx Renal/: Other (hypogonadism) Endocrine: Diabetes (2) Dermatology: No pertinent hx Past Surgical History Past Surgical History: No pertinent history Family History Family History: Coronary Artery Disease (father CABG at 50) Social History No ALCOHOL: none Drugs: Marijuana Lives: with Family Current Problem List Problem List Problems Medical Problems: (1) Abnormal stress ECG Status: Acute (2) Angina effort Status: Acute Current Medications Current Medications Current Medications Aspirin (Children'S Aspirin) 243 mg 1X ONCE PO Last administered on 08:17; Start 07/10/17 at 08:00; Stop 07/10/17 at 08:02; Status DC Nitroglycerin (Nitrostat) 0.4 mg PRN Q5MIN PRN SL CHEST PAIN Last administered on 07/10/17 08:17; Start 07/10/17 at 08:00 Heparin Sodium (Porcine) (Heparin Sodium) 4,000 unit 1X ONCE IV ; Start at 08:45; Stop 07/10/17 at 08:46; Status Cancel Heparin Sodium/ Dextrose 500 ml @ 0 mls/hr CONT PRN IV SEE I/O RECORD; Start 07/10/17 at 08:45; Status UNV Heparin Sodium (Porcine) (Heparin Sodium) 4,000 unit 1X ONCE IV Last administered on 07/10/17 08:50; Start 07/10/17 at 08:45; Stop 07/10/17 at 08 :46; Status DC Heparin Sodium/ Dextrose 500 ml @ 0 mls/hr CONT PRN IV SEE I/O RECORD Last administered on 07/10/17 08:51; Start 07/10/17 at 08:45; Stop 07/12/17 at 09 :47; Status DC Sodium Chloride 1,000 ml @ 60 mls/hr [id number] IV ; Start 07/10/17 at 10:00; Stop 07/10/17 at 10:13; Status DC Sodium Chloride 1,000 ml @ 60 mls/hr [id number] IV Last administered on 09:59; Start 07/10/17 at 09:47; Stop 07/11/17 at 03:23; Status DC Pneumococcal Polyvalent Vaccine (Do NOT chart on this placeholder) 1 each PRN 1X PRN MC SEE COMMENTS; Start 07/10/17 at 10:00; Status UNV Pneumococcal Polyvalent Vaccine (Pneumovax 23) 0.5 ml ONCE ONCE VAX IM ; Start 07/10/17 at 11:00; Stop 07/10/17 at 11:01; Status DC Aspirin (Ecotrin) 81 mg DAILYWBKFT PO ; Start 07/10/17 at 11:00; Stop at 13:39; Status DC Atorvastatin Calcium (Lipitor) 80 mg QHS PO Last administered on 07/10/17 21: 24; Start 07/10/17 at 21:00 Alprazolam (Xanax) 0.5 mg TID PO Last administered on 07/12/17 12:40; Start 07/10/17 at 14:00 Lurasidone HCl (Latuda) 40 mg QHS PO Last administered on 07/10/17 21:23; Start 07/10/17 at 21:00 Non-Formulary Medication 1 tab DAILY PO ; Start 07/11/17 at 09:00; Status Cancel Glimepiride (Amaryl) 2 mg DAILY PO Last administered on 07/10/17 18:05; Start 07/10/17 at 12:00 Lamotrigine (LaMICtal) 200 mg QHS PO Last administered on 07/10/17 21:23; Start 07/10/17 at 21:00 Pioglitazone HCl (Actos) 30 mg DAILY PO Last administered on 07/10/17 18:05; Start 07/10/17 at 12:00 Non-Formulary Medication 1 packet DAILY TP ; Start 07/11/17 at 09:00; Status UNV Lactobacillus Rhamnosus (Culturelle) 1 cap TIDWMEALS PO Last administered on 12:40; Start 07/10/17 at 12:00 Dextrose (Dextrose 50%-Water Syringe) 12.5 gm PRN Q15MIN PRN IV SEE COMMENTS; Start 07/10/17 at 12:00 Desvenlafaxine Succinate (Pristiq Er) 50 mg DAILY PO ; Start 07/11/17 at 09:00 ; Stop 07/11/17 at 09:00; Status DC Nitroglycerin (Nitroglycerin) 200 mcg 1X ONCE IART Last administered on 15:54; Start 07/10/17 at 15:45; Stop 07/10/17 at 15:46; Status DC Verapamil HCl (Verapamil) 2.5 mg 1X ONCE IART Last administered on 07/10/17 15:54; Start 07/10/17 at 15:45; Stop 07/10/17 at 15:46; Status DC Heparin Sodium (Porcine) (Heparin Sodium) 2,500 unit 1X ONCE IART Last administered on 07/10/17 15:55; Start 07/10/17 at 15:45; Stop 07/10/17 at 15 :46; Status DC Heparin Sodium/ Sodium Chloride 1,000 unit 1X ONCE IART Last administered on 07/10/17 15:53; Start 07/10/17 at 15:45; Stop 07/10/17 at 15:46; Status DC Midazolam HCl (Versed) 2 mg 1X ONCE IV Last administered on 07/10/17 15:55; Start 07/10/17 at 15:45; Stop 07/10/17 at 15:46; Status DC Fentanyl Citrate (Fentanyl 2ml Vial) 100 mcg 1X ONCE IV Last administered on 07/10/17 15:55; Start 07/10/17 at 15:45; Stop 07/10/17 at 15:46; Status DC Iohexol (Omnipaque 300 Mg/ml) 120 ml 1X ONCE IART Last administered on 15:54; Start 07/10/17 at 15:45; Stop 07/10/17 at 15:46; Status DC Lidocaine HCl 1 ml 1X ONCE IJ Last administered on 07/10/17 15:53; Start at 15:45; Stop 07/10/17 at 15:46; Status DC Info (Do NOT chart on this entry -- for MONITORING) 1 each PRN DAILY PRN MC SEE COMMENTS; Start 07/10/17 at 15:45; Stop 07/12/17 at 15:44; Status DC Metoprolol Tartrate (Lopressor) 12.5 mg BID PO Last administered on 07/10/17 21:24; Start 07/10/17 at 21:00; Stop 07/11/17 at 13:39; Status DC Ringer's Solution 1,000 ml @ 50 mls/hr Q20H IV Last administered on 07:00; Start 07/11/17 at 07:00; Stop 07/11/17 at 13:39; Status DC Zolpidem Tartrate (Ambien) 5 mg PRN QHS PRN PO INSOMNIA, MAY REPEAT IN 1HR; Start 07/10/17 at 17:45 Cefazolin Sodium/ Dextrose 50 ml @ 100 mls/hr 1X ONCE IV Last administered on 07/11/17 08:22; Start 07/11/17 at 06:00; Stop 07/11/17 at 06:29; Status DC Metoprolol Tartrate (Lopressor) 25 mg 1X ONCE PO Last administered on 18:05; Start 07/10/17 at 17:45; Stop 07/10/17 at 17:46; Status DC Hydralazine HCl (Apresoline Inj) 20 mg PRN Q4HRS PRN IVP ELEVATED BP, SEE COMMENTS Last administered on 07/12/17 04:06; Start 07/10/17 at 17:45 Non-Formulary Medication 1 ea HS PO ; Start 07/10/17 at 22:00 Non-Formulary Medication 1 ea DAILY TP Last administered on 07/12/17 09:00; Start 07/11/17 at 09:00 Ondansetron HCl (Zofran) 4 mg PRN Q6HRS PRN IV NAUSEA/VOMITING Last administered on 07/11/17 01:01; Start 07/11/17 at 00:00; Stop 07/11/17 at 13 :39; Status DC Lorazepam (Ativan) 1 mg PRN Q6HRS PRN PO ANXIETY / AGITATION; Start 07/11/17 at 00:00 Lorazepam (Ativan) 1 mg PRN Q6HRS PRN IV ANXIETY / AGITATION Last administered on 07/11/17 01:01; Start 07/11/17 at 00:30 Cefazolin Sodium 1 gm/Sodium Chloride 500 ml @ 500 mls/hr 1X PERIOP ONCE IRR Last administered on 07/11/17 08:49; Start 07/11/17 at 07:30; Stop 07/11/17 at 08:29; Status DC Heparin Sodium (Porcine) 10996 unit/Ringer's Solution 1,020 ml @ 1,020 mls/hr 1X PERIOP ONCE IRR Last administered on 07/11/17 08:49; Start 07/11/17 at 07:30; Stop 07/11/17 at 08:29; Status DC Potassium Chloride 70 meq/ Sodium Bicarbonate 12.5 meq/Lidocaine HCl 24 ml/ Parenteral Electrolytes 571.5 ml @ 571.5 mls/ hr 1X PERIOP ONCE IRR Last administered on 07/11/17 07:30; Start 07/11/17 at 07:30; Stop 07/11/17 at 08 :29; Status DC Potassium Chloride 15 meq/ Sodium Bicarbonate 12.5 meq/Parenteral Electrolytes 520 ml @ 520 mls/hr 1X PERIOP ONCE IRR Last administered on 07/11/17 07:30 ; Start 07/11/17 at 07:30; Stop 07/11/17 at 08:29; Status DC Insulin Human Regular 150 unit/ Sodium Chloride 151.5 ml @ 0 mls/hr CONT PRN IV SEE I/O RECORD; Start 07/11/17 at 07:45; Stop 07/11/17 at 13:39; Status DC Papaverine HCl 60 mg STK-MED ONCE TP Last administered on 07/11/17 08:49; Start 07/11/17 at 08:49; Stop 07/11/17 at 09:47; Status DC Aspirin (Aspirin) 300 mg STK-MED ONCE AR Last administered on 07/11/17 08:49 ; Start 07/11/17 at 08:49; Stop 07/11/17 at 09:47; Status DC Cellulose 1 each STK-MED ONCE TP Last administered on 07/11/17 08:49; Start 07/11/17 at 08:49; Stop 07/11/17 at 09:47; Status DC Vancomycin HCl (Vanco) 10 gm STK-MED ONCE TP Last administered on 07/11/17 08 :49; Start 07/11/17 at 08:49; Stop 07/11/17 at 09:47; Status DC Sodium Chloride (Normal Saline Flush) 3 ml PRN Q12HR PRN IV AFTER MEDS AND BLOOD DRAWS; Start 07/11/17 at 13:30 Ringer's Solution 1,000 ml @ 30 mls/hr Q24H IV Last administered on 12:42; Start 07/11/17 at 13:17 Albumin Human 250 ml @ 60 mls/hr PRN Q4HRS PRN IV SEE I/O RECORD Last administered on 07/11/17 15:02; Start 07/11/17 at 13:30 Insulin Human Regular 150 unit/ Sodium Chloride 151.5 ml @ 0 mls/hr CONT PRN PRN IV SEE I/O RECORD Last administered on 07/12/17 14:21; Start 07/11/17 at 13:30 Dextrose (Dextrose 50%-Water Syringe) 25 gm PRN Q15MIN PRN IV LOW BLOOD SUGAR; Start 07/11/17 at 13:30 Amiodarone HCl (Cordarone) 400 mg BID PO ; Start 07/12/17 at 09:00 Info 1 ea CONT PRN PRN MC SEE COMMENTS; Start 07/11/17 at 13:30 Info 1 ea CONT PRN PRN MC SEE COMMENTS; Start 07/11/17 at 13:30 Magnesium Sulfate/ Dextrose 100 ml @ 100 mls/hr PRN DAILY PRN IV FOR MAG < 2.2 Last administered on 07/12/17 07:57; Start 07/11/17 at 13:30 Famotidine (Pepcid Vial) 20 mg BID IVP Last administered on 07/12/17 08:59; Start 07/11/17 at 21:00 Ondansetron HCl (Zofran) 4 mg PRN Q4HRS PRN IV NAUSEA/VOMITING Last administered on 07/12/17 05:33; Start 07/11/17 at 13:30 Morphine Sulfate 2 mg PRN Q1HR PRN IV PAIN Last administered on 07/12/17 04: 47; Start 07/11/17 at 13:30 Acetaminophen (Tylenol) 650 mg PRN Q4HRS PRN PO MILD PAIN / TEMP; Start at 13:30 Acetaminophen (Acetaminophen Supp) 650 mg PRN Q4HRS PRN AR MILD PAIN / TEMP; Start 07/11/17 at 13:30 Meperidine HCl (Demerol) 12.5 mg PRN Q15MIN PRN IV SHIVERING; Start 07/11/17 at 13:30; Stop 07/12/17 at 13:17; Status DC Propofol 100 ml @ 0 mls/hr CONT PRN PRN IV POSTOP SEDATION UNTIL EXTUBATE; Start 07/11/17 at 13:30 Senna/Docusate Sodium (Senna Plus) 1 tab BID PO Last administered on 08:59; Start 07/11/17 at 21:00 Aspirin (Ecotrin) 325 mg DAILYWBKFT PO Last administered on 07/12/17 08:59; Start 07/12/17 at 08:00 Aspirin (Aspirin) 300 mg PRN DAILY PRN AR IF UNABLE TO TAKE PO; Start at 13:30 Albuterol Sulfate (Ventolin Neb Soln) 2.5 mg PRN Q4HRS PRN NEB SHORTNESS OF BREATH; Start 07/11/17 at 13:30 Metoprolol Tartrate (Lopressor) 25 mg BID PO Last administered on 07/12/17 10 :13; Start 07/12/17 at 09:00 Nicardipine HCl 50 mg/Sodium Chloride 270 ml @ 0 mls/hr CONT PRN PRN IV PER PROTOCOL; Start 07/11/17 at 13:30 Oxycodone/ Acetaminophen (Percocet 5/325) 1 tab PRN Q4HRS PRN PO MILD PAIN Last administered on 07/11/17 20:42; Start 07/11/17 at 13:30 Oxycodone/ Acetaminophen (Percocet 5/325) 2 tab PRN Q4HRS PRN PO MODERATE PAIN , SEVERE PAIN Last administered on 07/12/17 10:14; Start 07/11/17 at 13:30 Cefazolin Sodium/ Dextrose 50 ml @ 100 mls/hr Q8H IV ; Start 07/11/17 at 16:30 ; Stop 07/11/17 at 17:39; Status DC Polyethylene Glycol (miraLAX PACKET) 17 gm HS PO ; Start 07/11/17 at 21:00 Amiodarone HCl 150 mg/Dextrose 103 ml @ 618 mls/hr 1X ONCE IV Last administered on 07/11/17 14:00; Start 07/11/17 at 14:00; Stop 07/11/17 at 14 :09; Status DC Amiodarone HCl 900 mg/Dextrose 518 ml @ 34.53 mls/ hr CONT PRN IV SEE I/O RECORD Last administered on 07/11/17 14:43; Start 07/11/17 at 14:00; Stop at 14:43; Status DC Clevidipine 100 ml @ 0 mls/hr CONT PRN IV PER PROTOCOL; Start 07/11/17 at 14: 15 Sodium Bicarbonate 50 meq 1X ONCE IV Last administered on 07/11/17 14:44; Start 07/11/17 at 14:45; Stop 07/11/17 at 14:46; Status DC Sodium Bicarbonate 50 meq 1X ONCE IV Last administered on 07/11/17 14:44; Start 07/11/17 at 14:45; Stop 07/11/17 at 14:46; Status DC Cefazolin Sodium/ Dextrose 50 ml @ 100 mls/hr Q8H IV Last administered on 12:28; Start 07/11/17 at 21:00; Stop 07/13/17 at 05:01 Potassium Chloride 50 ml @ 50 mls/hr Q1H IV Last administered on 07/11/17 20: 07; Start 07/11/17 at 18:30; Stop 07/11/17 at 20:29; Status DC Magnesium Sulfate/ Dextrose 50 ml @ 25 mls/hr 1X ONCE IV Last administered on 07/11/17 18:55; Start 07/11/17 at 18:30; Stop 07/11/17 at 20:29; Status DC Potassium Chloride 50 ml @ 50 mls/hr 1X ONCE IV Last administered on 22:39; Start 07/11/17 at 23:00; Stop 07/11/17 at 23:59; Status DC Prochlorperazine Edisylate (Compazine) 10 mg PRN Q6HRS PRN IV NAUSEA/VOMITING Last administered on 07/12/17 04:17; Start 07/11/17 at 22:30 Nitroglycerin/ Dextrose 250 ml @ 0 mls/hr CONT PRN IV SEE I/O RECORD Last administered on 07/11/17 22:00; Start 07/12/17 at 00:30 Potassium Chloride 50 ml @ 50 mls/hr 1X ONCE IV Last administered on 07:56; Start 07/12/17 at 07:30; Stop 07/12/17 at 08:29; Status DC Amiodarone HCl 900 mg/Dextrose 518 ml @ 0 mls/hr CONT PRN IV SEE I/O RECORD; Start 07/12/17 at 11:45; Stop 07/12/17 at 12:22; Status DC Ketorolac Tromethamine (Toradol) 15 mg PRN Q6HRS PRN IV PAIN Last administered on 07/12/17 12:40; Start 07/12/17 at 12:30; Stop 07/17/17 at 12:29 Amiodarone HCl (Cordarone) 400 mg 1X ONCE PO Last administered on 07/12/17 12:41; Start 07/12/17 at 12:30; Stop 07/12/17 at 12:31; Status DC Cefazolin Sodium/ Dextrose (Ancef 2gm Premix) 2 gm STK-MED ONCE IV ; Start at 13:00; Stop 07/12/17 at 13:08; Status DC Active Scripts Active Famotidine 20 Mg Tablet 20 Mg PO QHS 30 Days Debi-Bid Caplet (Acidoph/L.bulg/Bif.b/S.thermop) 1 Each Tablet 1 Tab PO TIDWMEALS 14 Days Reported Lamictal (Lamotrigine) 200 Mg Tablet 1 Tab PO HS Janumet Xr 100-1,000 Mg Tablet (Sitagliptin Phos/Metformin Hcl) 1 Each Tbmp.24hr 1 Each PO DAILY Amaryl (Glimepiride) 1 Mg Tablet 2 Tab PO DAILY Androgel (Testosterone) 5 Gm Gel.packet 2 Packet TP DAILY Actos (Pioglitazone Hcl) 30 Mg Tablet 1 Tab PO DAILY Pristiq Er (Desvenlafaxine Succinate) 50 Mg Tab.er.24h 1 Tab PO HS Latuda (Lurasidone Hcl) 40 Mg Tablet 1 Tab PO QHS Xanax (Alprazolam) 0.5 Mg Tablet 1 Tab PO TID Allergies Allergies: Coded Allergies: codeine (Verified Adverse Reaction, Mild, upset stomach, 07/11/17) Physical Exam Physical Exam REVIEW OF SYSTEMS: Otherwise, not -nyron review of systems. PHYSICAL EXAMINATION: General appearance no acute distress. HEENT: Normocephalic and nontraumatic. Eyes, nose, ears, and throat are unremarkable. Neck is supple. No lymphadenopathy. No crepitus. Cardiovascular: S1, S2, regular rate and rhythm. Pulmonary: Clear to auscultation bilaterally. Abdomen: Bowel sounds are positive. Abdomen is soft, nontender, and nondistended. NEUROLOGICAL EXAMINATION: Alert Oriented to time, place and person. PERRL. EOMI. CN: no focal findings. Muscle tone: within normal. Muscle strength: 5 DTR: 1- 2 Plantar reflex: Flexor response bilaterally Gait: not examined in bed. Sensory exam: no abnormal findings. No obvious cerebellar signs elicited. Vitals VITALS Vital Signs Date Time Temp Pulse Resp B/P (MAP) Pulse Ox O2 Delivery O2 Flow Rate FiO2 07/12/17 15:00 77 16 86/46 (59) 97 Room Air 07/12/17 14:00 98.9 98.9 07/12/17 13:00 2.0 Labs Labs Laboratory Tests Test 07/10/17 16:15 07/10/17 19:15 07/10/17 21:22 07/11/17 04:59 Glucose (Fingerstick) 95 mg/dL (70-99) 122 mg/dL (70-99) 163 mg/dL (70-99) Nasal Screen MRSA (PCR) Negative (Negative) Test 07/11/17 08:39 07/11/17 09:49 07/11/17 09:50 07/11/17 11:01 Bedside Hemoglobin (Calculated) 11.9 g/dL (14-18) 11.2 g/dL (14-18) 9.5 g/dL (14-18) Bedside Hematocrit 35 % (37-52) 33 % (37-52) 28 % (37-52) Activated Clotting Time 114 SEC (90-125) 670 SEC (90-125) 479 SEC (90-125) Bedside Arterial pH 7.42 (7.35-7.45) 7.38 (7.35-7.45) 7.35 (7.35-7.45) Bedside Arterial pCO2 37 mmHg (35-45) 39 mmHg (35-45) 41 mmHg (35-45) Bedside Arterial pO2 420 mmHg (75-100) 382 mmHg (75-100) 296 mmHg (75-100) Bedside Arterial HCO3 24 mmol/L (21-28) 23 mmol/L (21-28) 23 mmol/L (21-28) Bedside Arterial Total CO2 25 mmol/L (21-32) 24 mmol/L (21-32) 24 mmol/L (21-32) Arterial Bld O2 Saturation (Measur) 100 % (95-99) 100 % (95-99) 100 % (95-99) Bedside Arterial Blood Base Excess -1 mmol/L (0-3) -2 mmol/L (0-3) -3 mmol/L (0-3) Bedside FiO2 100.0 80.0 70.0 Bedside Sodium 140 mmol/L (135-145) 137 mmol/L (135-145) 139 mmol/L (135-145) Bedside Potassium 4.0 mmol/L (3.5-5.0) 3.9 mmol/L (3.5-5.0) 5.4 mmol/L (3.5-5.0) Glucose Level 143 mg/dL (70-99) 150 mg/dL (70-99) 128 mg/dL (70-99) Bedside Ionized Calcium (Jeaneth) 1.25 mmol/L (1.13-1.32) 1.22 mmol/L (1.13-1.32) 1.13 mmol/L (1.13-1.32) Test 07/11/17 11:29 07/11/17 11:30 07/11/17 12:01 07/11/17 12:30 Activated Clotting Time 474 SEC (90-125) 548 SEC (90-125) 429 SEC (90-125) Bedside Hemoglobin (Calculated) 8.8 g/dL (14-18) 8.8 g/dL (14-18) Bedside Hematocrit 26 % (37-52) 26 % (37-52) Bedside Arterial pH 7.41 (7.35-7.45) 7.42 (7.35-7.45) Bedside Arterial pCO2 38 mmHg (35-45) 37 mmHg (35-45) Bedside Arterial pO2 346 mmHg (75-100) 235 mmHg (75-100) Bedside Arterial HCO3 24 mmol/L (21-28) 24 mmol/L (21-28) Bedside Arterial Total CO2 25 mmol/L (21-32) 25 mmol/L (21-32) Arterial Bld O2 Saturation (Measur) 100 % (95-99) 100 % (95-99) Bedside Arterial Blood Base Excess 0 mmol/L (0-3) -1 mmol/L (0-3) Bedside FiO2 70.0 70.0 Bedside Sodium 139 mmol/L (135-145) 141 mmol/L (135-145) Bedside Potassium 3.9 mmol/L (3.5-5.0) 4.2 mmol/L (3.5-5.0) Glucose Level 141 mg/dL (70-99) 152 mg/dL (70-99) Bedside Ionized Calcium (Jeaneth) 1.09 mmol/L (1.13-1.32) 1.13 mmol/L (1.13-1.32) Test 07/11/17 12:31 07/11/17 13:02 07/11/17 13:17 07/11/17 13:40 Bedside Hemoglobin (Calculated) 7.8 g/dL (14-18) 7.5 g/dL (14-18) Bedside Hematocrit 23 % (37-52) 22 % (37-52) Bedside Arterial pH 7.38 (7.35-7.45) 7.34 (7.35-7.45) Bedside Arterial pCO2 41 mmHg (35-45) 43 mmHg (35-45) Bedside Arterial pO2 261 mmHg (75-100) 204 mmHg (75-100) Bedside Arterial HCO3 24 mmol/L (21-28) 23 mmol/L (21-28) Bedside Arterial Total CO2 26 mmol/L (21-32) 25 mmol/L (21-32) Arterial Bld O2 Saturation (Measur) 100 % (95-99) 100 % (95-99) Bedside Arterial Blood Base Excess -1 mmol/L (0-3) -2 mmol/L (0-3) Bedside FiO2 80.0 100.0 Bedside Sodium 137 mmol/L (135-145) 139 mmol/L (135-145) Bedside Potassium 3.8 mmol/L (3.5-5.0) 3.4 mmol/L (3.5-5.0) Glucose Level 154 mg/dL (70-99) 131 mg/dL (70-99) Bedside Ionized Calcium (Jeaneth) 1.96 mmol/L (1.13-1.32) 1.86 mmol/L (1.13-1.32) Activated Clotting Time 108 SEC (90-125) O2 Saturation 99 % (92-99) Arterial Blood pH 7.35 (7.35-7.45) Arterial Blood pCO2 at Patient Temp 36 mmHg (35-46) Arterial Blood pO2 at Patient Temp 338 mmHg (65-108) Arterial Blood HCO3 19 mmol/L (21-28) Arterial Blood Base Excess -6 mmol/L (-3-3) Oxyhemoglobin 97.7 % Methemoglobin 0.7 % (0.0-1.9) Carbon Monoxide, Quantitative 0.3 % (0.0-1.9) FiO2 100% White Blood Count 12.3 x10^3/uL (4.0-11.0) Red Blood Count 2.74 x10^6/uL (4.30-5.70) Hemoglobin 7.8 g/dL (13.0-17.5) Hematocrit 23.4 % (39.0-53.0) Mean Corpuscular Volume 85 fL (79-100) Mean Corpuscular Hemoglobin 29 pg (25-35) Mean Corpuscular Hemoglobin Concent 33 g/dL (31-37) Red Cell Distribution Width 14.6 % (11.5-14.5) Platelet Count 150 x10^3/uL (140-400) Prothrombin Time 18.5 SEC (11.7-14.0) Prothromb Time International Ratio 1.7 (0.8-1.1) Activated Partial Thromboplast Time 32 SEC (24-38) Test 07/11/17 13:43 07/11/17 15:00 07/11/17 15:05 07/11/17 16:08 Bedside Hemoglobin (Calculated) 7.5 g/dL (14-18) Bedside Hematocrit 22 % (37-52) Bedside Arterial pH 7.37 (7.35-7.45) Bedside Arterial pCO2 39 mmHg (35-45) Bedside Arterial pO2 395 mmHg (75-100) Bedside Arterial HCO3 23 mmol/L (21-28) Bedside Arterial Total CO2 24 mmol/L (21-32) Arterial Bld O2 Saturation (Measur) 100 % (95-99) Bedside Arterial Blood Base Excess -2 mmol/L (0-3) Bedside FiO2 100.0 Bedside Sodium 143 mmol/L (135-145) Bedside Potassium 3.4 mmol/L (3.5-5.0) Glucose Level 100 mg/dL (70-99) 137 mg/dL (70-99) Bedside Ionized Calcium (Jeaneth) 1.60 mmol/L (1.13-1.32) Glucose (Fingerstick) 151 mg/dL (70-99) 160 mg/dL (70-99) Sodium Level 146 mmol/L (136-145) Potassium Level 3.2 mmol/L (3.5-5.1) Chloride Level 112 mmol/L (98-107) Carbon Dioxide Level 22 mmol/L (21-32) Anion Gap 12 (6-14) Blood Urea Nitrogen 15 mg/dL (8-26) Creatinine 1.0 mg/dL (0.7-1.3) Estimated GFR (Cockcroft-Gault) 75.5 Calcium Level 10.0 mg/dL (8.5-10.1) Magnesium Level 2.3 mg/dL (1.8-2.4) Test 07/11/17 16:39 07/11/17 16:43 07/11/17 17:49 07/11/17 17:50 O2 Saturation 98 % (92-99) Arterial Blood pH 7.50 (7.35-7.45) Arterial Blood pCO2 at Patient Temp 30 mmHg (35-46) Arterial Blood pO2 at Patient Temp 137 mmHg (65-108) Arterial Blood HCO3 22 mmol/L (21-28) Arterial Blood Base Excess -1 mmol/L (-3-3) FiO2 40% Glucose (Fingerstick) 190 mg/dL (70-99) 211 mg/dL (70-99) White Blood Count 15.9 x10^3/uL (4.0-11.0) Red Blood Count 2.73 x10^6/uL (4.30-5.70) Hemoglobin 7.7 g/dL (13.0-17.5) Hematocrit 23.3 % (39.0-53.0) Mean Corpuscular Volume 85 fL (79-100) Mean Corpuscular Hemoglobin 28 pg (25-35) Mean Corpuscular Hemoglobin Concent 33 g/dL (31-37) Red Cell Distribution Width 14.4 % (11.5-14.5) Platelet Count 189 x10^3/uL (140-400) Sodium Level 146 mmol/L (136-145) Potassium Level 3.5 mmol/L (3.5-5.1) Chloride Level 111 mmol/L (98-107) Carbon Dioxide Level 24 mmol/L (21-32) Anion Gap 11 (6-14) Blood Urea Nitrogen 15 mg/dL (8-26) Creatinine 1.1 mg/dL (0.7-1.3) Estimated GFR (Cockcroft-Gault) 67.6 Glucose Level 210 mg/dL (70-99) Calcium Level 9.7 mg/dL (8.5-10.1) Magnesium Level 1.9 mg/dL (1.8-2.4) Test 07/11/17 18:55 07/11/17 20:04 07/11/17 21:03 07/11/17 21:40 Glucose (Fingerstick) 167 mg/dL (70-99) 137 mg/dL (70-99) 131 mg/dL (70-99) Potassium Level 4.4 mmol/L (3.5-5.1) Test 07/11/17 22:08 07/11/17 23:07 07/12/17 00:03 07/12/17 01:04 Glucose (Fingerstick) 135 mg/dL (70-99) 130 mg/dL (70-99) 121 mg/dL (70-99) 152 mg/dL (70-99) Test 07/12/17 02:06 07/12/17 03:06 07/12/17 04:09 07/12/17 05:14 Glucose (Fingerstick) 142 mg/dL (70-99) 135 mg/dL (70-99) 128 mg/dL (70-99) 148 mg/dL (70-99) Test 07/12/17 06:00 07/12/17 06:20 07/12/17 06:25 07/12/17 07:43 White Blood Count 12.3 x10^3/uL (4.0-11.0) Red Blood Count 2.48 x10^6/uL (4.30-5.70) Hemoglobin 6.9 g/dL (13.0-17.5) Hematocrit 21.0 % (39.0-53.0) Mean Corpuscular Volume 85 fL (79-100) Mean Corpuscular Hemoglobin 28 pg (25-35) Mean Corpuscular Hemoglobin Concent 33 g/dL (31-37) Red Cell Distribution Width 14.7 % (11.5-14.5) Platelet Count 168 x10^3/uL (140-400) Glucose (Fingerstick) 211 mg/dL (70-99) 156 mg/dL (70-99) Sodium Level 144 mmol/L (136-145) Potassium Level 4.4 mmol/L (3.5-5.1) Chloride Level 112 mmol/L (98-107) Carbon Dioxide Level 22 mmol/L (21-32) Anion Gap 10 (6-14) Blood Urea Nitrogen 16 mg/dL (8-26) Creatinine 1.1 mg/dL (0.7-1.3) Estimated GFR (Cockcroft-Gault) 67.6 Glucose Level 163 mg/dL (70-99) Calcium Level 9.5 mg/dL (8.5-10.1) Magnesium Level 2.0 mg/dL (1.8-2.4) Test 07/12/17 08:56 07/12/17 10:04 07/12/17 11:06 07/12/17 12:09 Glucose (Fingerstick) 147 mg/dL (70-99) 152 mg/dL (70-99) 183 mg/dL (70-99) 178 mg/dL (70-99) Test 07/12/17 13:11 07/12/17 14:19 Glucose (Fingerstick) 109 mg/dL (70-99) 140 mg/dL (70-99) Laboratory Tests Test 07/11/17 16:08 07/11/17 16:39 07/11/17 16:43 07/11/17 17:49 Glucose (Fingerstick) 160 mg/dL (70-99) 190 mg/dL (70-99) 211 mg/dL (70-99) O2 Saturation 98 % (92-99) Arterial Blood pH 7.50 (7.35-7.45) Arterial Blood pCO2 at Patient Temp 30 mmHg (35-46) Arterial Blood pO2 at Patient Temp 137 mmHg (65-108) Arterial Blood HCO3 22 mmol/L (21-28) Arterial Blood Base Excess -1 mmol/L (-3-3) FiO2 40% Test 07/11/17 17:50 07/11/17 18:55 07/11/17 20:04 07/11/17 21:03 White Blood Count 15.9 x10^3/uL (4.0-11.0) Red Blood Count 2.73 x10^6/uL (4.30-5.70) Hemoglobin 7.7 g/dL (13.0-17.5) Hematocrit 23.3 % (39.0-53.0) Mean Corpuscular Volume 85 fL (79-100) Mean Corpuscular Hemoglobin 28 pg (25-35) Mean Corpuscular Hemoglobin Concent 33 g/dL (31-37) Red Cell Distribution Width 14.4 % (11.5-14.5) Platelet Count 189 x10^3/uL (140-400) Sodium Level 146 mmol/L (136-145) Potassium Level 3.5 mmol/L (3.5-5.1) Chloride Level 111 mmol/L (98-107) Carbon Dioxide Level 24 mmol/L (21-32) Anion Gap 11 (6-14) Blood Urea Nitrogen 15 mg/dL (8-26) Creatinine 1.1 mg/dL (0.7-1.3) Estimated GFR (Cockcroft-Gault) 67.6 Glucose Level 210 mg/dL (70-99) Calcium Level 9.7 mg/dL (8.5-10.1) Magnesium Level 1.9 mg/dL (1.8-2.4) Glucose (Fingerstick) 167 mg/dL (70-99) 137 mg/dL (70-99) 131 mg/dL (70-99) Test 07/11/17 21:40 07/11/17 22:08 07/11/17 23:07 07/12/17 00:03 Potassium Level 4.4 mmol/L (3.5-5.1) Glucose (Fingerstick) 135 mg/dL (70-99) 130 mg/dL (70-99) 121 mg/dL (70-99) Test 07/12/17 01:04 07/12/17 02:06 07/12/17 03:06 07/12/17 04:09 Glucose (Fingerstick) 152 mg/dL (70-99) 142 mg/dL (70-99) 135 mg/dL (70-99) 128 mg/dL (70-99) Test 07/12/17 05:14 07/12/17 06:00 07/12/17 06:20 07/12/17 06:25 Glucose (Fingerstick) 148 mg/dL (70-99) 211 mg/dL (70-99) White Blood Count 12.3 x10^3/uL (4.0-11.0) Red Blood Count 2.48 x10^6/uL (4.30-5.70) Hemoglobin 6.9 g/dL (13.0-17.5) Hematocrit 21.0 % (39.0-53.0) Mean Corpuscular Volume 85 fL (79-100) Mean Corpuscular Hemoglobin 28 pg (25-35) Mean Corpuscular Hemoglobin Concent 33 g/dL (31-37) Red Cell Distribution Width 14.7 % (11.5-14.5) Platelet Count 168 x10^3/uL (140-400) Sodium Level 144 mmol/L (136-145) Potassium Level 4.4 mmol/L (3.5-5.1) Chloride Level 112 mmol/L (98-107) Carbon Dioxide Level 22 mmol/L (21-32) Anion Gap 10 (6-14) Blood Urea Nitrogen 16 mg/dL (8-26) Creatinine 1.1 mg/dL (0.7-1.3) Estimated GFR (Cockcroft-Gault) 67.6 Glucose Level 163 mg/dL (70-99) Calcium Level 9.5 mg/dL (8.5-10.1) Magnesium Level 2.0 mg/dL (1.8-2.4) Test 07/12/17 07:43 07/12/17 08:56 07/12/17 10:04 07/12/17 11:06 Glucose (Fingerstick) 156 mg/dL (70-99) 147 mg/dL (70-99) 152 mg/dL (70-99) 183 mg/dL (70-99) Test 07/12/17 12:09 07/12/17 13:11 07/12/17 14:19 Glucose (Fingerstick) 178 mg/dL (70-99) 109 mg/dL (70-99) 140 mg/dL (70-99) Assessment/Plan Assessment/Plan This patient is 62-year-old man who presented with angina patient had outpatient stress testing which was abnormal. Patient was seen by cardiology for heart catheterization. Patient is currently status post CABG. Patient has episode this morning when he was confused patient was not able to use right words patient was having some word finding difficulties. Patient does not have any numbness on his face. Patient does not have any focal weakness in any arms are legs. Patient currently feels back to baseline does not have any problems speaking does not have any numbness on his face patient denies any complaint of chest pain dizziness shortness of breath or any weakness. Patient is currently relaxing in his bed with no new complaints. Status post CABG history of coronary artery disease. Episodes concerning for possible TIA. MRI brain cannot be done due to current medical condition. We will get CT scan on the brain noncontrast to rule out any acute process. Continue aspirin for secondary stroke prevention. Check lipid profile, statin PTOT speech evaluation. Check 2-D echo, carotid Doppler. Continue medical management. ALIS SALINAS MD Jul 12, 2017 16:04
--- NOTE | 2017-07-12 16:18 | RAD ---
Head CT without contrast History:Difficulty with speech this exam Technique: Noncontrast CT imaging was acquired of the head. [facility] Compliance Statement: One or more of the following individualized dose reduction techniques were utilized for this examination: 1. Automated exposure control 2. Adjustment of the mA and/or kV according to patient size 3. Use of iterative reconstruction technique Comparison: None Findings: Ventricular size is within normal limits. There is mild supratentorial involutional change.There is no significant intra-axial mass-effect, midline shift, or abnormal extra-axial fluid collection. There is no evidence of acute parenchymal or extraaxial hemorrhage. Mastoid air cells are aerated. There are right maxillary sinus mucus retention cysts, largest 2.2 cm. No significant osseous abnormality is identified. Impression: 1. There is no evidence of an acute intracranial abnormality. If there is suspicion for evolving or acute ischemia, follow-up CT or MRI may be beneficial.
[2017-07-12] MEDS: PRISTIQ PO SCH (21:37)
[2017-07-12] MEDS: LURASIDONE 40 MG TABLET. PO SCH (21:37)
[2017-07-12] MEDS: lamoTRIgine 100 MG TABLET. PO SCH (21:37)
[2017-07-12] MEDS: POLYETHYLENE GLYCOL 3350 17 GM PACKET. PO SCH (21:37)
[2017-07-12] MEDS: ATORVASTATIN CALCIUM 40 MG TABLET. PO SCH (21:38)
[2017-07-13] VITALS (16 sets, daily range): BP systolic 96–164; BP diastolic 49–78
[2017-07-13] MEDS ORDERED: ALBUMIN HUMAN 5% 500 ML IV ONE (00:30)
[2017-07-13] MEDS: KETOROLAC 15 MG/ML VIAL. IV PRN ×2 (03:50→09:41)
[2017-07-13] MEDS: PROCHLORPERAZINE 10 MG/2 ML VIAL. IV PRN (04:28)
[2017-07-13] MEDS ORDERED: FUROSEMIDE 20 MG/2 ML VIAL. IVP ONE (05:00)
[2017-07-13 06:22] LABS: HEMATOCRIT 21.6 % (39.0-53.0); HEMOGLOBIN 7.3 g/dL (13.0-17.5); RED BLOOD COUNT 2.5 x10^6/uL (4.30-5.70); RED CELL DISTRIBUTION WIDTH 14.7 % (11.5-14.5); WHITE BLOOD COUNT 11.4 x10^3/uL (4.0-11.0)
[2017-07-13 06:47] LABS: CALCIUM 8.5 mg/dL (8.5-10.1); CREATININE 1.5 mg/dL (0.7-1.3); GFR 47.3; POTASSIUM 3.7 mmol/L (3.5-5.1)
--- NOTE | 2017-07-13 08:15 | RAD ---
Single view of the Chest 07/13/2017 9:00 AM Indication: POST OP Comparison: Chest radiograph, yesterday Findings: Right internal jugular introducer sheath persists. Removal of mediastinal drainage catheter noted. Left thoracostomy tube remains. No pneumothorax is identified. Minimal pneumomediastinum is seen, similar to comparison study. Right basilar atelectasis is improved. No acute osseous changes are identified. Impression: Interval removal of mediastinal drainage catheter. Improved aeration of the right lung base. Otherwise stable chest
[2017-07-13] MEDS: POTASSIUM CHLORIDE 20MEQ 50 ML IV SCH ×2 (09:00→09:51)
[2017-07-13] MEDS: ASPIRIN ENTERIC COATED 325 MG TABLET.DR. PO SCH (09:41)
[2017-07-13] MEDS: ALPRAZolam 0.5 MG TABLET PO SCH ×3 (09:41→16:48)
[2017-07-13] MEDS: GLIMEPIRIDE 2 MG TABLET. PO SCH (09:41)
[2017-07-13] MEDS: AMIODARONE HCL 200 MG TABLET. PO SCH ×2 (09:42→21:14)
[2017-07-13] MEDS: SENNOSIDES/DOCUSATE 8.6/50MG TABLET. PO SCH ×2 (09:43→21:13)
[2017-07-13] MEDS: PIOGLITAZONE 15 MG TABLET. PO SCH (09:43)
[2017-07-13] MEDS: LACTOBACILLUS RHAMNOSUS GG 1 CAPSULE. PO SCH ×3 (09:43→16:48)
[2017-07-13] MEDS: METOPROLOL TART IMMED RELEASE 25 MG TABLET. PO SCH ×2 (09:43→21:14)
[2017-07-13] MEDS: JANUMET PO SCH (09:44)
[2017-07-13] MEDS: ANDROGEL TP SCH (09:46)
[2017-07-13] MEDS: MAGNESIUM SULFATE 1GM 100 ML IV PRN (09:57)
--- NOTE | 2017-07-13 10:35 | PDOC ---
GENERAL General: vss and afebrile. awake and alert and good pain control. more anxious than normal and will increased xanax to q 6hrs prn. Hb 7.3. creatinine increased to 1.5. chest with diminished breath sounds, heart regular, abdomen benign, and sugars decent. no further speech symptoms and neurological consult and suggestions appreciated. ct head yesterday negative. Problems: VITAL SIGNS Vital Signs: Vital Signs Date Time Temp Pulse Resp B/P (MAP) Pulse Ox O2 Delivery O2 Flow Rate FiO2 07/13/17 10:00 89 16 164/66 (98) 97 Room Air 07/13/17 08:00 98.5 98.5 07/12/17 13:00 2.0 I & O I & O Intake and Output 07/13/17 07:00 Intake Total 4716 ml Output Total 1391 ml Balance 3325 ml Intake Oral 1920 ml IV Total 2166 ml Blood Product IV Normal Saline Flush 630 ml Output Urine Total 1005 ml Chest Tube Drainage Total 386 ml ALLERGIES Allergies: Allergies Coded Allergies Type Severity Reaction Last Updated Verified codeine Adverse Reaction Mild upset stomach 07/11/17 Yes MEDS Medications: Current Medications Medications (Trade) Dose Ordered Sig/Teresa Start Time Stop Time Status Last Admin Dose Admin Acetaminophen (Acetaminophen Supp) 650 mg PRN Q4HRS PRN 07/11/17 13:30 Acetaminophen (Tylenol) 650 mg PRN Q4HRS PRN 07/11/17 13:30 07/13/17 09:41 650 MG Albumin Human 500 ml @ 125 mls/hr 1X ONCE 07/13/17 00:30 07/13/17 04:29 DC 07/13/17 00:08 125 MLS/HR Albuterol Sulfate (Ventolin Neb Soln) 2.5 mg PRN Q4HRS PRN 07/11/17 13:30 Alprazolam (Xanax) 0.5 mg TID 07/10/17 14:00 07/13/17 09:41 0.5 MG Amiodarone HCl (Cordarone) 400 mg 1X ONCE 07/12/17 12:30 07/12/17 12:31 DC 07/12/17 12:41 400 MG Amiodarone HCl 150 mg/Dextrose 103 ml @ 618 mls/hr 1X ONCE 07/11/17 14:00 07/11/17 14:09 DC 07/11/17 14:00 618 MLS/HR Amiodarone HCl 900 mg/Dextrose 518 ml @ 0 mls/hr CONT PRN 07/12/17 11:45 07/12/17 12:22 DC Aspirin (Aspirin) 300 mg PRN DAILY PRN 07/11/17 13:30 Aspirin (Children'S Aspirin) 243 mg 1X ONCE 07/10/17 08:00 07/10/17 08:02 DC 07/10/17 08:17 243 MG Aspirin (Ecotrin) 325 mg [id number] 07/12/17 08:00 07/13/17 09:41 325 MG Atorvastatin Calcium (Lipitor) 80 mg QHS 07/10/17 21:00 07/12/17 21:38 80 MG Cefazolin Sodium 1 gm/Sodium Chloride 500 ml @ 500 mls/hr 1X PERIOP ONCE 07/11/17 07:30 07/11/17 08:29 DC 07/11/17 08:49 Cefazolin Sodium/ Dextrose (Ancef 2gm Premix) 2 gm STK-MED ONCE 07/11/17 13:00 07/12/17 13:08 DC Cellulose 1 each STK-MED ONCE 07/11/17 08:49 07/11/17 09:47 DC 07/11/17 08:49 1 EACH Clevidipine 100 ml @ 0 mls/hr CONT PRN 07/11/17 14:15 07/12/17 16:31 DC Desvenlafaxine Succinate (Pristiq Er) 50 mg DAILY 07/11/17 09:00 07/11/17 09:00 DC Dextrose (Dextrose 50%-Water Syringe) 25 gm PRN Q15MIN PRN 07/11/17 13:30 Cancel Famotidine (Pepcid Vial) 20 mg BID 07/11/17 21:00 07/12/17 22:45 20 MG Fentanyl Citrate (Fentanyl 2ml Vial) 100 mcg 1X ONCE 07/10/17 15:45 07/10/17 15:46 DC 07/10/17 15:55 100 MCG Furosemide (Lasix) 20 mg 1X ONCE 07/13/17 05:00 07/13/17 05:01 DC 07/13/17 04:47 20 MG Glimepiride (Amaryl) 2 mg DAILY 07/10/17 12:00 07/13/17 09:41 2 MG Heparin Sodium (Porcine) (Heparin Sodium) 2,500 unit 1X ONCE 07/10/17 15:45 07/10/17 15:46 DC 07/10/17 15:55 2,500 UNIT Heparin Sodium (Porcine) 25087 unit/Ringer's Solution 1,020 ml @ 1,020 mls/hr 1X PERIOP ONCE 07/11/17 07:30 07/11/17 08:29 DC 07/11/17 08:49 Heparin Sodium/ Dextrose 500 ml @ 0 mls/hr CONT PRN 07/10/17 08:45 07/12/17 09:47 DC 07/10/17 08:51 0 MLS/HR Heparin Sodium/ Sodium Chloride 1,000 unit 1X ONCE 07/10/17 15:45 07/10/17 15:46 DC 07/10/17 15:53 1,000 UNIT Hydralazine HCl (Apresoline Inj) 20 mg PRN Q4HRS PRN 07/10/17 17:45 07/12/17 04:06 20 MG Info 1 ea CONT PRN PRN 07/11/17 13:30 Info (Do NOT chart on this entry -- for MONITORING) 1 each PRN DAILY PRN 07/10/17 15:45 07/12/17 15:44 DC Insulin Human Regular 150 unit/ Sodium Chloride 151.5 ml @ 0 mls/hr CONT PRN PRN 07/11/17 13:30 07/12/17 14:21 4 MLS/HR Iohexol (Omnipaque 300 Mg/ml) 120 ml 1X ONCE 07/10/17 15:45 07/10/17 15:46 DC 07/10/17 15:54 120 ML Ketorolac Tromethamine (Toradol) 15 mg PRN Q6HRS PRN 07/12/17 12:30 07/17/17 12:29 07/13/17 09:41 15 MG Lactobacillus Rhamnosus (Culturelle) 1 cap TIDWMEALS 07/10/17 12:00 07/13/17 09:43 1 CAP Lamotrigine (LaMICtal) 200 mg QHS 07/10/17 21:00 07/12/17 21:37 200 MG Lidocaine HCl 1 ml 1X ONCE 07/10/17 15:45 07/10/17 15:46 DC 07/10/17 15:53 1 ML Lorazepam (Ativan) 1 mg PRN Q6HRS PRN 07/11/17 00:30 07/11/17 01:01 1 MG Lurasidone HCl (Latuda) 40 mg QHS 07/10/17 21:00 07/12/17 21:37 40 MG Magnesium Sulfate/ Dextrose 50 ml @ 25 mls/hr 1X ONCE 07/11/17 18:30 07/11/17 20:29 DC 07/11/17 18:55 25 MLS/HR Meperidine HCl (Demerol) 12.5 mg PRN Q15MIN PRN 07/11/17 13:30 07/12/17 13:17 DC Metoprolol Tartrate (Lopressor) 25 mg BID 07/12/17 09:00 07/13/17 09:43 25 MG Midazolam HCl (Versed) 2 mg 1X ONCE 07/10/17 15:45 07/10/17 15:46 DC 07/10/17 15:55 2 MG Morphine Sulfate 2 mg PRN Q1HR PRN 07/11/17 13:30 07/12/17 04:47 2 MG Nicardipine HCl 50 mg/Sodium Chloride 270 ml @ 0 mls/hr CONT PRN PRN 07/11/17 13:30 Nitroglycerin (Nitroglycerin) 200 mcg 1X ONCE 07/10/17 15:45 07/10/17 15:46 DC 07/10/17 15:54 200 MCG Nitroglycerin (Nitrostat) 0.4 mg PRN Q5MIN PRN 07/10/17 08:00 07/10/17 08:17 0.4 MG Nitroglycerin/ Dextrose 250 ml @ 0 mls/hr CONT PRN 07/12/17 00:30 07/12/17 16:31 DC 07/11/17 22:00 1.5 MLS/HR Non-Formulary Medication 1 ea DAILY 07/13/17 09:00 07/13/17 09:44 1 EA Ondansetron HCl (Zofran) 4 mg PRN Q4HRS PRN 07/11/17 13:30 07/12/17 05:33 4 MG Oxycodone/ Acetaminophen (Percocet 5/325) 2 tab PRN Q4HRS PRN 07/11/17 13:30 07/12/17 20:02 2 TAB Papaverine HCl 60 mg STK-MED ONCE 07/11/17 08:49 07/11/17 09:47 DC 07/11/17 08:49 60 MG Pioglitazone HCl (Actos) 30 mg DAILY 07/10/17 12:00 07/13/17 09:43 30 MG Pneumococcal Polyvalent Vaccine (Do NOT chart on this placeholder) 1 each PRN 1X PRN 07/10/17 10:00 UNV Pneumococcal Polyvalent Vaccine (Pneumovax 23) 0.5 ml ONCE ONCE 07/10/17 11:00 07/10/17 11:01 DC Polyethylene Glycol (miraLAX PACKET) 17 gm HS 07/11/17 21:00 07/12/17 21:37 17 GM Potassium Chloride 15 meq/ Sodium Bicarbonate 12.5 meq/Parenteral Electrolytes 520 ml @ 520 mls/hr 1X PERIOP ONCE 07/11/17 07:30 07/11/17 08:29 DC 07/11/17 07:30 520 MLS/HR Potassium Chloride 70 meq/ Sodium Bicarbonate 12.5 meq/Lidocaine HCl 24 ml/Parenteral Electrolytes 571.5 ml @ 571.5 mls/ hr 1X PERIOP ONCE 07/11/17 07:30 07/11/17 08:29 DC 07/11/17 07:30 571.5 MLS/HR Potassium Chloride 50 ml @ 50 mls/hr Q1H 07/13/17 08:00 07/13/17 09:59 DC 07/13/17 09:51 50 MLS/HR Prochlorperazine Edisylate (Compazine) 10 mg PRN Q6HRS PRN 07/11/17 22:30 07/12/17 22:50 10 MG Propofol 100 ml @ 0 mls/hr CONT PRN PRN 07/11/17 13:30 07/12/17 16:31 DC Ringer's Solution 1,000 ml @ 30 mls/hr Q24H 07/11/17 13:17 07/12/17 12:42 30 MLS/HR Senna/Docusate Sodium (Senna Plus) 1 tab BID 07/11/17 21:00 07/13/17 09:43 1 TAB Sodium Bicarbonate 50 meq 1X ONCE 07/11/17 14:45 07/11/17 14:46 DC 07/11/17 14:44 50 MEQ Sodium Chloride (Normal Saline Flush) 3 ml PRN Q12HR PRN 07/11/17 13:30 Vancomycin HCl (Vanco) 10 gm STK-MED ONCE 07/11/17 08:49 07/11/17 09:47 DC 07/11/17 08:49 10 GM Verapamil HCl (Verapamil) 2.5 mg 1X ONCE 07/10/17 15:45 07/10/17 15:46 DC 07/10/17 15:54 2.5 MG Zolpidem Tartrate (Ambien) 5 mg PRN QHS PRN 07/10/17 17:45 07/12/17 23:12 5 MG LAB Lab: Laboratory Tests Test 07/12/17 11:06 07/12/17 12:09 07/12/17 13:11 07/12/17 14:19 Glucose (Fingerstick) 183 mg/dL (70-99) 178 mg/dL (70-99) 109 mg/dL (70-99) 140 mg/dL (70-99) Test 07/12/17 15:22 07/12/17 16:42 07/12/17 17:44 07/12/17 18:34 Glucose (Fingerstick) 114 mg/dL (70-99) 132 mg/dL (70-99) 94 mg/dL (70-99) 135 mg/dL (70-99) Test 07/12/17 19:36 07/12/17 20:40 07/12/17 21:51 07/12/17 23:10 Glucose (Fingerstick) 181 mg/dL (70-99) 144 mg/dL (70-99) 168 mg/dL (70-99) 159 mg/dL (70-99) Test 07/13/17 00:12 07/13/17 01:09 07/13/17 02:08 07/13/17 03:07 Glucose (Fingerstick) 148 mg/dL (70-99) 160 mg/dL (70-99) 125 mg/dL (70-99) 140 mg/dL (70-99) Test 07/13/17 03:52 07/13/17 04:53 07/13/17 05:45 07/13/17 07:18 Glucose (Fingerstick) 130 mg/dL (70-99) 123 mg/dL (70-99) 99 mg/dL (70-99) White Blood Count 11.4 x10^3/uL (4.0-11.0) Red Blood Count 2.50 x10^6/uL (4.30-5.70) Hemoglobin 7.3 g/dL (13.0-17.5) Hematocrit 21.6 % (39.0-53.0) Mean Corpuscular Volume 86 fL (79-100) Mean Corpuscular Hemoglobin 29 pg (25-35) Mean Corpuscular Hemoglobin Concent 34 g/dL (31-37) Red Cell Distribution Width 14.7 % (11.5-14.5) Platelet Count 118 x10^3/uL (140-400) Sodium Level 139 mmol/L (136-145) Potassium Level 3.7 mmol/L (3.5-5.1) Chloride Level 105 mmol/L (98-107) Carbon Dioxide Level 23 mmol/L (21-32) Anion Gap 11 (6-14) Blood Urea Nitrogen 21 mg/dL (8-26) Creatinine 1.5 mg/dL (0.7-1.3) Estimated GFR (Cockcroft-Gault) 47.3 Glucose Level 172 mg/dL (70-99) Calcium Level 8.5 mg/dL (8.5-10.1) Magnesium Level 2.0 mg/dL (1.8-2.4) CAIO HUITRON MD Jul 13, 2017 10:35
[2017-07-13] MEDS ORDERED: ALBUTEROL SULFATE 2.5 MG/3 ML NEBU. NEB ONE (12:30)
[2017-07-13] MEDS ORDERED: DEXTROSE 50% 25 GM / 50ML DISP.SYRIN. IV PRN (13:00)
[2017-07-13] MEDS: IV RINGERS,LACTATED 1000ML 1,000 ML IV SCH (13:17)
[2017-07-13] MEDS: ALBUTEROL SULFATE 2.5 MG/3 ML NEBU. NEB SCH ×3 (13:30→20:05)
--- NOTE | 2017-07-13 14:27 | PDOC ---
Progress Note Subjective Subjective Doing very well. Normotensive and in SR. On room air. CXR looks great. Tube output minimal. 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, oriented x 3, no focal neurologic deficit SKIN: No rash IV: ok Labs Lab Laboratory Tests Test 07/12/17 15:22 07/12/17 16:42 07/12/17 17:44 07/12/17 18:34 Glucose (Fingerstick) 114 mg/dL (70-99) 132 mg/dL (70-99) 94 mg/dL (70-99) 135 mg/dL (70-99) Test 07/12/17 19:36 07/12/17 20:40 07/12/17 21:51 07/12/17 23:10 Glucose (Fingerstick) 181 mg/dL (70-99) 144 mg/dL (70-99) 168 mg/dL (70-99) 159 mg/dL (70-99) Test 07/13/17 00:12 07/13/17 01:09 07/13/17 02:08 07/13/17 03:07 Glucose (Fingerstick) 148 mg/dL (70-99) 160 mg/dL (70-99) 125 mg/dL (70-99) 140 mg/dL (70-99) Test 07/13/17 03:52 07/13/17 04:53 07/13/17 05:45 07/13/17 07:18 Glucose (Fingerstick) 130 mg/dL (70-99) 123 mg/dL (70-99) 99 mg/dL (70-99) White Blood Count 11.4 x10^3/uL (4.0-11.0) Red Blood Count 2.50 x10^6/uL (4.30-5.70) Hemoglobin 7.3 g/dL (13.0-17.5) Hematocrit 21.6 % (39.0-53.0) Mean Corpuscular Volume 86 fL (79-100) Mean Corpuscular Hemoglobin 29 pg (25-35) Mean Corpuscular Hemoglobin Concent 34 g/dL (31-37) Red Cell Distribution Width 14.7 % (11.5-14.5) Platelet Count 118 x10^3/uL (140-400) Sodium Level 139 mmol/L (136-145) Potassium Level 3.7 mmol/L (3.5-5.1) Chloride Level 105 mmol/L (98-107) Carbon Dioxide Level 23 mmol/L (21-32) Anion Gap 11 (6-14) Blood Urea Nitrogen 21 mg/dL (8-26) Creatinine 1.5 mg/dL (0.7-1.3) Estimated GFR (Cockcroft-Gault) 47.3 Glucose Level 172 mg/dL (70-99) Calcium Level 8.5 mg/dL (8.5-10.1) Magnesium Level 2.0 mg/dL (1.8-2.4) Test 07/13/17 11:35 Glucose (Fingerstick) 216 mg/dL (70-99) Objective Assessment POD#2 s/p CABG x 3 (STILES to LAD, SVG to RPDA, SVG to OM4). Doing very well. Normotensive and in SR. On room air. CXR looks great. Tube output minimal. Creat 1.5, Hb 7.3 Plan Plan of Care D/c pleural drain D/c cordis D/c treviño D/c pacing wires Oral amiodarone for AFib prophylaxis. Will stop before discharge Stop iv Toradol owing to creat bump to 1.5 ASA, b michele, statin Oral hypoglycemic medications + sliding scale and stop insulin drip Ambulation and pulmonary toilet Transfer to stepdown Will likely need short term rehab-nobody at home to stay with him next week JANIE PYLE MD Jul 13, 2017 14:26
[2017-07-13] MEDS: oxyCODONE/APAP 5/325 1 TAB TABLET PO PRN (16:48)
[2017-07-13] MEDS: ONDANSETRON PF 4 MG/2 ML VIAL. IV PRN (16:48)
[2017-07-13] MEDS: INSULIN ASPART 300 UNITS/3 ML INSULN.PEN SQ SCH (17:02)
[2017-07-13] MEDS: ATORVASTATIN CALCIUM 40 MG TABLET. PO SCH (21:13)
[2017-07-13] MEDS: LURASIDONE 40 MG TABLET. PO SCH (21:14)
[2017-07-13] MEDS: lamoTRIgine 100 MG TABLET. PO SCH (21:14)
[2017-07-13] MEDS: POLYETHYLENE GLYCOL 3350 17 GM PACKET. PO SCH (21:15)
[2017-07-13] MEDS: FAMOTIDINE 20 MG/2 ML VIAL IVP SCH (21:15)
[2017-07-13] MEDS: PRISTIQ PO SCH (21:16)
[2017-07-14] VITALS (9 sets, daily range): BP systolic 97–145; BP diastolic 55–80
[2017-07-14] MEDS: oxyCODONE/APAP 5/325 1 TAB TABLET PO PRN ×4 (00:10→14:44)
[2017-07-14] MEDS: ALPRAZolam 0.5 MG TABLET PO SCH ×4 (00:10→17:39)
[2017-07-14] MEDS: ONDANSETRON PF 4 MG/2 ML VIAL. IV PRN (00:11)
[2017-07-14] MEDS: ASPIRIN ENTERIC COATED 325 MG TABLET.DR. PO SCH (07:37)
[2017-07-14] MEDS: LACTOBACILLUS RHAMNOSUS GG 1 CAPSULE. PO SCH ×3 (07:37→17:39)
--- NOTE | 2017-07-14 07:41 | RAD ---
Single view chest History:POST OP, shortness of air An AP view of the chest is submitted. Comparison: 07/13/2017. Findings: There again has been a median sternotomy. Previously seen right internal jugular vascular sheath has been removed. Previously seen left chest tube has been removed. Heart size is stable. There is likely some residual atelectasis of the medial right lung base as seen previously. No pneumothorax is identified. Cardiac silhouette is stable. Impression: No pneumothorax is identified, interval removal of left chest tube. There is mild atelectasis medial right lung base.
[2017-07-14] MEDS: INSULIN ASPART 300 UNITS/3 ML INSULN.PEN SQ SCH ×3 (08:00→17:00)
[2017-07-14] MEDS: ALBUTEROL SULFATE 2.5 MG/3 ML NEBU. NEB SCH ×4 (08:00→18:20)
[2017-07-14] MEDS: AMIODARONE HCL 200 MG TABLET. PO SCH ×2 (08:27→21:05)
[2017-07-14] MEDS: SENNOSIDES/DOCUSATE 8.6/50MG TABLET. PO SCH ×2 (08:27→21:05)
[2017-07-14] MEDS: METOPROLOL TART IMMED RELEASE 25 MG TABLET. PO SCH ×2 (08:27→21:05)
[2017-07-14] MEDS: PIOGLITAZONE 15 MG TABLET. PO SCH (08:28)
[2017-07-14] MEDS: JANUMET PO SCH (08:29)
[2017-07-14] MEDS: GLIMEPIRIDE 2 MG TABLET. PO SCH (08:30)
[2017-07-14] MEDS: FAMOTIDINE 20 MG TABLET. PO SCH ×2 (08:39→21:05)
[2017-07-14] MEDS: ANDROGEL TP SCH (09:00)
--- NOTE | 2017-07-14 12:15 | PDOC ---
Provider Note Provider Note day 3 cabg, walking, looks good, glucose ok- note creat up 1.5 07/13 from 1.1, will repeat KESHIA PALACIOS MD Jul 14, 2017 12:15
[2017-07-14] MEDS: IV RINGERS,LACTATED 1000ML 1,000 ML IV SCH (13:07)
[2017-07-14] MEDS: lamoTRIgine 100 MG TABLET. PO SCH (21:06)
[2017-07-14] MEDS: PRISTIQ PO SCH (21:06)
[2017-07-14] MEDS: ATORVASTATIN CALCIUM 40 MG TABLET. PO SCH (21:06)
[2017-07-14] MEDS: LURASIDONE 40 MG TABLET. PO SCH (21:06)
[2017-07-14] MEDS: POLYETHYLENE GLYCOL 3350 17 GM PACKET. PO SCH (21:06)
[2017-07-15] MEDS: ONDANSETRON PF 4 MG/2 ML VIAL. IV PRN (00:15)
[2017-07-15] MEDS: ALPRAZolam 0.5 MG TABLET PO SCH ×5 (00:15→23:41)
[2017-07-15] MEDS: oxyCODONE/APAP 5/325 1 TAB TABLET PO PRN ×4 (00:16→19:39)
[2017-07-15 02:34] VITALS: BP 131/72
[2017-07-15 07:00] VITALS: BP 141/80
[2017-07-15 07:26] LABS: CALCIUM 8.9 mg/dL (8.5-10.1); CREATININE 1.2 mg/dL (0.7-1.3); GFR 61.1; POTASSIUM 4.6 mmol/L (3.5-5.1)
[2017-07-15] MEDS: INSULIN ASPART 300 UNITS/3 ML INSULN.PEN SQ SCH ×3 (08:00→17:00)
[2017-07-15] MEDS: ALBUTEROL SULFATE 2.5 MG/3 ML NEBU. NEB SCH ×4 (08:13→19:28)
[2017-07-15] MEDS: LACTOBACILLUS RHAMNOSUS GG 1 CAPSULE. PO SCH ×3 (08:58→18:04)
[2017-07-15] MEDS: SENNOSIDES/DOCUSATE 8.6/50MG TABLET. PO SCH ×2 (08:58→20:58)
[2017-07-15] MEDS: FAMOTIDINE 20 MG TABLET. PO SCH ×2 (08:59→20:58)
[2017-07-15] MEDS: PIOGLITAZONE 15 MG TABLET. PO SCH (08:59)
[2017-07-15] MEDS: ASPIRIN ENTERIC COATED 325 MG TABLET.DR. PO SCH (08:59)
[2017-07-15] MEDS: ANDROGEL TP SCH (09:00)
[2017-07-15] MEDS: GLIMEPIRIDE 2 MG TABLET. PO SCH (09:00)
[2017-07-15] MEDS: AMIODARONE HCL 200 MG TABLET. PO SCH ×2 (09:01→20:57)
[2017-07-15] MEDS: METOPROLOL TART IMMED RELEASE 25 MG TABLET. PO SCH ×2 (09:01→20:58)
--- NOTE | 2017-07-15 09:01 | PDOC ---
Provider Note Provider Note vss, good bp, hb low 7.3, last platelets down 118, repeat cbc- glucose good on actos/glimep- rest same KESHIA PALACIOS MD Jul 15, 2017 09:01
[2017-07-15] MEDS: JANUMET PO SCH (09:02)
[2017-07-15 09:24] LABS: BASO % 1 % (0-3); EOS % 3 % (0-3); HEMATOCRIT 25.3 % (39.0-53.0); HEMOGLOBIN 8.4 g/dL (13.0-17.5); LYMPH # 2.5 x10^3/uL (1.0-4.8); LYMPH % 24 % (24-48); MEAN CORPUSCULAR HEMOGLOBIN 30 pg (25-35); MEAN CORPUSCULAR HGB CONC 33 g/dL (31-37); MEAN CORPUSCULAR VOLUME 89 fL (79-100); MONO % 10 % (0-9); NEUT % 63 % (31-73); PLATELET COUNT 256 x10^3/uL (140-400); RED BLOOD COUNT 2.83 x10^6/uL (4.30-5.70); RED CELL DISTRIBUTION WIDTH 14.7 % (11.5-14.5); WHITE BLOOD COUNT 10.3 x10^3/uL (4.0-11.0)
[2017-07-15 11:00] VITALS: BP 112/53
[2017-07-15] MEDS: IV RINGERS,LACTATED 1000ML 1,000 ML IV SCH (13:17)
--- NOTE | 2017-07-15 13:51 | PDOC ---
Progress Note Subjective Subjective Doing very well. Normotensive and in SR. On room air. Creat 1.2 from 1.5, Hb 8.4 from 7.2 ROS ROS No nausea No vomiting No pain No rash Vital Sign Vital Signs Vital Signs Date Time Temp Pulse Resp B/P (MAP) Pulse Ox O2 Delivery O2 Flow Rate FiO2 07/15/17 12:58 100 Room Air 07/15/17 11:00 97.9 74 20 112/53 (72) 97.9 07/15/17 01:16 2.0 Physical Exam PHYSICAL EXAM GENERAL: NAD, Alert HEENT: PERRL, OC/OP NECK: Supple, no JVD, no LN LUNGS: Clear HEART: S1S2, no gallop, no murmur ABD: Soft, NT, no organomegaly, no rebound EXT: No edema, no cyanosis [employer] OFFICER: Alert, oriented x 3, no focal neurologic deficit SKIN: No rash IV: ok Labs Lab Laboratory Tests Test 07/14/17 17:34 07/14/17 20:38 07/15/17 07:00 07/15/17 08:02 Glucose (Fingerstick) 156 mg/dL (70-99) 191 mg/dL (70-99) 148 mg/dL (70-99) White Blood Count 10.3 x10^3/uL (4.0-11.0) Red Blood Count 2.83 x10^6/uL (4.30-5.70) Hemoglobin 8.4 g/dL (13.0-17.5) Hematocrit 25.3 % (39.0-53.0) Mean Corpuscular Volume 89 fL (79-100) Mean Corpuscular Hemoglobin 30 pg (25-35) Mean Corpuscular Hemoglobin Concent 33 g/dL (31-37) Red Cell Distribution Width 14.7 % (11.5-14.5) Platelet Count 256 x10^3/uL (140-400) Neutrophils (%) (Auto) 63 % (31-73) Lymphocytes (%) (Auto) 24 % (24-48) Monocytes (%) (Auto) 10 % (0-9) Eosinophils (%) (Auto) 3 % (0-3) Basophils (%) (Auto) 1 % (0-3) Neutrophils # (Auto) 6.5 x10^3uL (1.8-7.7) Lymphocytes # (Auto) 2.5 x10^3/uL (1.0-4.8) Monocytes # (Auto) 1.0 x10^3/uL (0.0-1.1) Eosinophils # (Auto) 0.3 x10^3/uL (0.0-0.7) Basophils # (Auto) 0.0 x10^3/uL (0.0-0.2) Sodium Level 141 mmol/L (136-145) Potassium Level 4.6 mmol/L (3.5-5.1) Chloride Level 106 mmol/L (98-107) Carbon Dioxide Level 27 mmol/L (21-32) Anion Gap 8 (6-14) Blood Urea Nitrogen 15 mg/dL (8-26) Creatinine 1.2 mg/dL (0.7-1.3) Estimated GFR (Cockcroft-Gault) 61.1 Glucose Level 151 mg/dL (70-99) Calcium Level 8.9 mg/dL (8.5-10.1) Test 07/15/17 12:01 Glucose (Fingerstick) 161 mg/dL (70-99) Objective Assessment POD#4 s/p CABG x 3 (STILES to LAD, SVG to RPDA, SVG to OM4). Doing very well. Normotensive and in SR. On room air. Creat 1.2 from 1.5, Hb 8.4 from 7.2 Plan Plan of Care Continue amio po for AFib prophylaxis, will stop prior to discharge ASA, b michele, statin Oral hypoglycemics Bowel regimen D/c rehab tomorrow vs home on Sunday, when his sister returns home JANIE PYLE MD Jul 15, 2017 13:51
[2017-07-15 15:08] VITALS: BP 104/56
[2017-07-15 19:20] VITALS: BP 121/51
[2017-07-15] MEDS: POLYETHYLENE GLYCOL 3350 17 GM PACKET. PO SCH (20:57)
[2017-07-15] MEDS: ATORVASTATIN CALCIUM 40 MG TABLET. PO SCH (20:58)
[2017-07-15] MEDS: lamoTRIgine 100 MG TABLET. PO SCH (20:58)
[2017-07-15] MEDS: LURASIDONE 40 MG TABLET. PO SCH (20:58)
[2017-07-15] MEDS: PRISTIQ PO SCH (20:59)
[2017-07-15 23:44] VITALS: BP 129/63
[2017-07-16 03:15] VITALS: BP 129/56
[2017-07-16] MEDS: ALPRAZolam 0.5 MG TABLET PO SCH ×2 (06:13→13:25)
[2017-07-16 07:00] VITALS: BP 160/67
[2017-07-16] MEDS: ALBUTEROL SULFATE 2.5 MG/3 ML NEBU. NEB SCH ×3 (07:06→15:14)
[2017-07-16] MEDS: INSULIN ASPART 300 UNITS/3 ML INSULN.PEN SQ SCH ×2 (08:00→12:00)
[2017-07-16] MEDS: ONDANSETRON PF 4 MG/2 ML VIAL. IV PRN (08:12)
--- NOTE | 2017-07-16 08:34 | PDOC ---
GENERAL General: see discharge summary. Problems: VITAL SIGNS Vital Signs: Vital Signs Date Time Temp Pulse Resp B/P (MAP) Pulse Ox O2 Delivery O2 Flow Rate FiO2 07/16/17 07:06 96 Room Air 07/16/17 03:15 97.9 75 18 129/56 (80) 97.9 I & O I & O Intake and Output 07/16/17 07:00 Intake Total 2620 ml Balance 2620 ml Intake Oral 2620 ml ALLERGIES Allergies: Allergies Coded Allergies Type Severity Reaction Last Updated Verified codeine Adverse Reaction Mild upset stomach 07/11/17 Yes MEDS Medications: Current Medications Medications (Trade) Dose Ordered Sig/Teresa Start Time Stop Time Status Last Admin Dose Admin Acetaminophen (Acetaminophen Supp) 650 mg PRN Q4HRS PRN 07/11/17 13:30 Acetaminophen (Tylenol) 650 mg PRN Q4HRS PRN 07/11/17 13:30 07/13/17 09:41 650 MG Albumin Human 500 ml @ 125 mls/hr 1X ONCE 07/13/17 00:30 07/13/17 04:29 DC 07/13/17 00:08 125 MLS/HR Albuterol Sulfate (Ventolin Neb Soln) 2.5 mg RTQID 07/13/17 13:30 07/16/17 07:06 2.5 MG Alprazolam (Xanax) 0.5 mg Q6HRS 07/13/17 12:00 07/16/17 06:13 0.5 MG Amiodarone HCl (Cordarone) 400 mg 1X ONCE 07/12/17 12:30 07/12/17 12:31 DC 07/12/17 12:41 400 MG Amiodarone HCl 150 mg/Dextrose 103 ml @ 618 mls/hr 1X ONCE 07/11/17 14:00 07/11/17 14:09 DC 07/11/17 14:00 618 MLS/HR Amiodarone HCl 900 mg/Dextrose 518 ml @ 0 mls/hr CONT PRN 07/12/17 11:45 07/12/17 12:22 DC Aspirin (Aspirin) 300 mg PRN DAILY PRN 07/11/17 13:30 Aspirin (Children'S Aspirin) 243 mg 1X ONCE 07/10/17 08:00 07/10/17 08:02 DC 07/10/17 08:17 243 MG Aspirin (Ecotrin) 325 mg [id number] 07/12/17 08:00 07/15/17 08:59 325 MG Atorvastatin Calcium (Lipitor) 80 mg QHS 07/10/17 21:00 07/15/17 20:58 80 MG Cefazolin Sodium 1 gm/Sodium Chloride 500 ml @ 500 mls/hr 1X PERIOP ONCE 07/11/17 07:30 07/11/17 08:29 DC 07/11/17 08:49 Cefazolin Sodium/ Dextrose (Ancef 2gm Premix) 2 gm STK-MED ONCE 07/11/17 13:00 07/12/17 13:08 DC Cellulose 1 each STK-MED ONCE 07/11/17 08:49 07/11/17 09:47 DC 07/11/17 08:49 1 EACH Clevidipine 100 ml @ 0 mls/hr CONT PRN 07/11/17 14:15 07/12/17 16:31 DC Desvenlafaxine Succinate (Pristiq Er) 50 mg DAILY 07/11/17 09:00 07/11/17 09:00 DC Dextrose (Dextrose 50%-Water Syringe) 12.5 gm PRN Q15MIN PRN 07/13/17 13:00 07/14/17 08:26 DC Famotidine (Pepcid Vial) 20 mg BID 07/11/17 21:00 07/14/17 08:30 DC 07/13/17 21:15 20 MG Famotidine (Pepcid) 20 mg BID 07/14/17 09:00 07/15/17 20:58 20 MG Fentanyl Citrate (Fentanyl 2ml Vial) 100 mcg 1X ONCE 07/10/17 15:45 07/10/17 15:46 DC 07/10/17 15:55 100 MCG Furosemide (Lasix) 20 mg 1X ONCE 07/13/17 05:00 07/13/17 05:01 DC 07/13/17 04:47 20 MG Glimepiride (Amaryl) 2 mg DAILY 07/10/17 12:00 07/15/17 09:00 2 MG Heparin Sodium (Porcine) (Heparin Sodium) 2,500 unit 1X ONCE 07/10/17 15:45 07/10/17 15:46 DC 07/10/17 15:55 2,500 UNIT Heparin Sodium (Porcine) 12493 unit/Ringer's Solution 1,020 ml @ 1,020 mls/hr 1X PERIOP ONCE 07/11/17 07:30 07/11/17 08:29 DC 07/11/17 08:49 Heparin Sodium/ Dextrose 500 ml @ 0 mls/hr CONT PRN 07/10/17 08:45 07/12/17 09:47 DC 07/10/17 08:51 0 MLS/HR Heparin Sodium/ Sodium Chloride 1,000 unit 1X ONCE 07/10/17 15:45 07/10/17 15:46 DC 07/10/17 15:53 1,000 UNIT Hydralazine HCl (Apresoline Inj) 20 mg PRN Q4HRS PRN 07/10/17 17:45 07/12/17 04:06 20 MG Info 1 ea CONT PRN PRN 07/11/17 13:30 07/15/17 08:34 DC Info (Do NOT chart on this entry -- for MONITORING) 1 each PRN DAILY PRN 07/10/17 15:45 07/12/17 15:44 DC Insulin Aspart (NovoLOG) 0-5 UNITS TIDWMEALS 07/13/17 17:00 07/13/17 17:02 2 UNITS Insulin Human Regular 150 unit/ Sodium Chloride 151.5 ml @ 0 mls/hr CONT PRN PRN 07/11/17 13:30 07/12/17 14:21 4 MLS/HR Iohexol (Omnipaque 300 Mg/ml) 120 ml 1X ONCE 07/10/17 15:45 07/10/17 15:46 DC 07/10/17 15:54 120 ML Ketorolac Tromethamine (Toradol) 15 mg PRN Q6HRS PRN 07/12/17 12:30 07/13/17 14:28 DC 07/13/17 09:41 15 MG Lactobacillus Rhamnosus (Culturelle) 1 cap TIDWMEALS 07/10/17 12:00 07/15/17 18:04 1 CAP Lamotrigine (LaMICtal) 200 mg QHS 07/10/17 21:00 07/15/17 20:58 200 MG Lidocaine HCl 1 ml 1X ONCE 07/10/17 15:45 07/10/17 15:46 DC 07/10/17 15:53 1 ML Lorazepam (Ativan) 1 mg PRN Q6HRS PRN 07/11/17 00:30 07/11/17 01:01 1 MG Lurasidone HCl (Latuda) 40 mg QHS 07/10/17 21:00 07/15/17 20:58 40 MG Magnesium Sulfate/ Dextrose 50 ml @ 25 mls/hr 1X ONCE 07/11/17 18:30 07/11/17 20:29 DC 07/11/17 18:55 25 MLS/HR Meperidine HCl (Demerol) 12.5 mg PRN Q15MIN PRN 07/11/17 13:30 07/12/17 13:17 DC Metoprolol Tartrate (Lopressor) 25 mg BID 07/12/17 09:00 07/15/17 20:58 25 MG Midazolam HCl (Versed) 2 mg 1X ONCE 07/10/17 15:45 07/10/17 15:46 DC 07/10/17 15:55 2 MG Morphine Sulfate 2 mg PRN Q1HR PRN 07/11/17 13:30 07/12/17 04:47 2 MG Nicardipine HCl 50 mg/Sodium Chloride 270 ml @ 0 mls/hr CONT PRN PRN 07/11/17 13:30 Nitroglycerin (Nitroglycerin) 200 mcg 1X ONCE 07/10/17 15:45 07/10/17 15:46 DC 07/10/17 15:54 200 MCG Nitroglycerin (Nitrostat) 0.4 mg PRN Q5MIN PRN 07/10/17 08:00 07/10/17 08:17 0.4 MG Nitroglycerin/ Dextrose 250 ml @ 0 mls/hr CONT PRN 07/12/17 00:30 07/12/17 16:31 DC 07/11/17 22:00 1.5 MLS/HR Non-Formulary Medication 1 ea DAILY 07/13/17 09:00 07/15/17 09:02 1 EA Ondansetron HCl (Zofran) 4 mg PRN Q4HRS PRN 07/11/17 13:30 07/16/17 08:12 4 MG Oxycodone/ Acetaminophen (Percocet 5/325) 2 tab PRN Q4HRS PRN 07/11/17 13:30 07/15/17 19:39 2 TAB Papaverine HCl 60 mg STK-MED ONCE 07/11/17 08:49 07/11/17 09:47 DC 07/11/17 08:49 60 MG Pioglitazone HCl (Actos) 30 mg DAILY 07/10/17 12:00 07/15/17 08:59 30 MG Pneumococcal Polyvalent Vaccine (Do NOT chart on this placeholder) 1 each PRN 1X PRN 07/10/17 10:00 UNV Pneumococcal Polyvalent Vaccine (Pneumovax 23) 0.5 ml ONCE ONCE 07/10/17 11:00 07/10/17 11:01 DC Polyethylene Glycol (miraLAX PACKET) 17 gm HS 07/11/17 21:00 07/15/17 20:57 17 GM Potassium Chloride 15 meq/ Sodium Bicarbonate 12.5 meq/Parenteral Electrolytes 520 ml @ 520 mls/hr 1X PERIOP ONCE 07/11/17 07:30 07/11/17 08:29 DC 07/11/17 07:30 520 MLS/HR Potassium Chloride 70 meq/ Sodium Bicarbonate 12.5 meq/Lidocaine HCl 24 ml/Parenteral Electrolytes 571.5 ml @ 571.5 mls/ hr 1X PERIOP ONCE 07/11/17 07:30 07/11/17 08:29 DC 07/11/17 07:30 571.5 MLS/HR Potassium Chloride 50 ml @ 50 mls/hr Q1H 07/13/17 08:00 07/13/17 09:59 DC 07/13/17 09:00 50 MLS/HR Prochlorperazine Edisylate (Compazine) 10 mg PRN Q6HRS PRN 07/11/17 22:30 07/12/17 22:50 10 MG Propofol 100 ml @ 0 mls/hr CONT PRN PRN 07/11/17 13:30 07/12/17 16:31 DC Ringer's Solution 1,000 ml @ 30 mls/hr Q24H 07/11/17 13:17 07/12/17 12:42 30 MLS/HR Senna/Docusate Sodium (Senna Plus) 1 tab BID 07/11/17 21:00 07/15/17 20:58 1 TAB Sodium Bicarbonate 50 meq 1X ONCE 07/11/17 14:45 07/11/17 14:46 DC 07/11/17 14:44 50 MEQ Sodium Chloride (Normal Saline Flush) 3 ml PRN Q12HR PRN 07/11/17 13:30 Vancomycin HCl (Vanco) 10 gm STK-MED ONCE 07/11/17 08:49 07/11/17 09:47 DC 07/11/17 08:49 10 GM Verapamil HCl (Verapamil) 2.5 mg 1X ONCE 07/10/17 15:45 07/10/17 15:46 DC 07/10/17 15:54 2.5 MG Zolpidem Tartrate (Ambien) 5 mg PRN QHS PRN 07/10/17 17:45 07/12/17 23:12 5 MG LAB Lab: Laboratory Tests Test 07/15/17 12:01 07/15/17 16:53 07/15/17 20:42 07/16/17 07:38 Glucose (Fingerstick) 161 mg/dL (70-99) 104 mg/dL (70-99) 152 mg/dL (70-99) 162 mg/dL (70-99) CAIO HUITRON MD Jul 16, 2017 08:34
--- NOTE | 2017-07-16 09:48 | PDOC ---
PROGRESS NOTES Assessment Problems Medical Problems: (1) Abnormal stress ECG Status: Acute (2) Angina effort Status: Acute Episode of dysarthria most likely metabolic from anemia and medications, no further symptoms. Plan Agree with discharge plans Continue aspirin and atorvastatin Follow-up with neurology as needed. Subjective No complaints Objective Vital Signs Date Time Temp Pulse Resp B/P (MAP) Pulse Ox O2 Delivery O2 Flow Rate FiO2 07/16/17 07:06 96 Room Air 07/16/17 07:00 98.5 80 20 160/67 (98) 98.5 Intake and Output 07/16/17 07:00 Intake Total 2620 ml Balance 2620 ml Intake Oral 2620 ml PHYSICAL EXAM Alert. Oriented to time, place and person. PERRL. EOMI. CN: no focal findings. Muscle tone: normal. Muscle strength: 5/5 DTR: 1+ Plantar reflex: flexor Gait: normal, but a little unsteady when he turns around Sensory exam: no abnormal findings. No cerebellar signs elicited. Review of Relevant I have reviewed the following items dewey (where applicable) has been applied. Labs Laboratory Tests Test 07/14/17 12:34 07/14/17 17:34 07/14/17 20:38 07/15/17 07:00 Glucose (Fingerstick) 140 mg/dL (70-99) 156 mg/dL (70-99) 191 mg/dL (70-99) White Blood Count 10.3 x10^3/uL (4.0-11.0) Red Blood Count 2.83 x10^6/uL (4.30-5.70) Hemoglobin 8.4 g/dL (13.0-17.5) Hematocrit 25.3 % (39.0-53.0) Mean Corpuscular Volume 89 fL (79-100) Mean Corpuscular Hemoglobin 30 pg (25-35) Mean Corpuscular Hemoglobin Concent 33 g/dL (31-37) Red Cell Distribution Width 14.7 % (11.5-14.5) Platelet Count 256 x10^3/uL (140-400) Neutrophils (%) (Auto) 63 % (31-73) Lymphocytes (%) (Auto) 24 % (24-48) Monocytes (%) (Auto) 10 % (0-9) Eosinophils (%) (Auto) 3 % (0-3) Basophils (%) (Auto) 1 % (0-3) Neutrophils # (Auto) 6.5 x10^3uL (1.8-7.7) Lymphocytes # (Auto) 2.5 x10^3/uL (1.0-4.8) Monocytes # (Auto) 1.0 x10^3/uL (0.0-1.1) Eosinophils # (Auto) 0.3 x10^3/uL (0.0-0.7) Basophils # (Auto) 0.0 x10^3/uL (0.0-0.2) Sodium Level 141 mmol/L (136-145) Potassium Level 4.6 mmol/L (3.5-5.1) Chloride Level 106 mmol/L (98-107) Carbon Dioxide Level 27 mmol/L (21-32) Anion Gap 8 (6-14) Blood Urea Nitrogen 15 mg/dL (8-26) Creatinine 1.2 mg/dL (0.7-1.3) Estimated GFR (Cockcroft-Gault) 61.1 Glucose Level 151 mg/dL (70-99) Calcium Level 8.9 mg/dL (8.5-10.1) Test 07/15/17 08:02 07/15/17 12:01 07/15/17 16:53 07/15/17 20:42 Glucose (Fingerstick) 148 mg/dL (70-99) 161 mg/dL (70-99) 104 mg/dL (70-99) 152 mg/dL (70-99) Test 07/16/17 07:38 Glucose (Fingerstick) 162 mg/dL (70-99) Laboratory Tests Test 07/15/17 12:01 07/15/17 16:53 07/15/17 20:42 07/16/17 07:38 Glucose (Fingerstick) 161 mg/dL (70-99) 104 mg/dL (70-99) 152 mg/dL (70-99) 162 mg/dL (70-99) Medications Current Medications Aspirin (Children'S Aspirin) 243 mg 1X ONCE PO Last administered on t 08:17; Start 07/10/17 at 08:00; Stop 07/10/17 at 08:02; Status DC Nitroglycerin (Nitrostat) 0.4 mg PRN Q5MIN PRN SL CHEST PAIN Last administered on 07/10/17 08:17; Start 07/10/17 at 08:00 Heparin Sodium (Porcine) (Heparin Sodium) 4,000 unit 1X ONCE IV ; Start at 08:45; Stop 07/10/17 at 08:46; Status Cancel Heparin Sodium/ Dextrose 500 ml @ 0 mls/hr CONT PRN IV SEE I/O RECORD; Start 07/10/17 at 08:45; Status UNV Heparin Sodium (Porcine) (Heparin Sodium) 4,000 unit 1X ONCE IV Last administered on 07/10/17 08:50; Start 07/10/17 at 08:45; Stop 07/10/17 at 08 :46; Status DC Heparin Sodium/ Dextrose 500 ml @ 0 mls/hr CONT PRN IV SEE I/O RECORD Last administered on 07/10/17 08:51; Start 07/10/17 at 08:45; Stop 07/12/17 at 09 :47; Status DC Sodium Chloride 1,000 ml @ 60 mls/hr [id number] IV ; Start 07/10/17 at 10:00; Stop 07/10/17 at 10:13; Status DC Sodium Chloride 1,000 ml @ 60 mls/hr [id number] IV Last administered on 09:59; Start 07/10/17 at 09:47; Stop 07/11/17 at 03:23; Status DC Pneumococcal Polyvalent Vaccine (Do NOT chart on this placeholder) 1 each PRN 1X PRN MC SEE COMMENTS; Start 07/10/17 at 10:00; Status UNV Pneumococcal Polyvalent Vaccine (Pneumovax 23) 0.5 ml ONCE ONCE VAX IM ; Start 07/10/17 at 11:00; Stop 07/10/17 at 11:01; Status DC Aspirin (Ecotrin) 81 mg DAILYWBKFT PO ; Start 07/10/17 at 11:00; Stop at 13:39; Status DC Atorvastatin Calcium (Lipitor) 80 mg QHS PO Last administered on 07/15/17 20: 58; Start 07/10/17 at 21:00 Alprazolam (Xanax) 0.5 mg TID PO Last administered on 11/24/17at 09:41; Start 07/10/17 at 14:00; Stop 07/13/17 at 10:37; Status DC Lurasidone HCl (Latuda) 40 mg QHS PO Last administered on 07/15/17 20:58; Start 07/10/17 at 21:00 Non-Formulary Medication 1 tab DAILY PO ; Start 07/11/17 at 09:00; Status Cancel Glimepiride (Amaryl) 2 mg DAILY PO Last administered on 07/15/17 09:00; Start 07/10/17 at 12:00 Lamotrigine (LaMICtal) 200 mg QHS PO Last administered on 07/15/17 20:58; Start 07/10/17 at 21:00 Pioglitazone HCl (Actos) 30 mg DAILY PO Last administered on 07/15/17 08:59; Start 07/10/17 at 12:00 Non-Formulary Medication 1 packet DAILY TP ; Start 07/11/17 at 09:00; Status UNV Lactobacillus Rhamnosus (Culturelle) 1 cap TIDWMEALS PO Last administered on 18:04; Start 07/10/17 at 12:00 Dextrose (Dextrose 50%-Water Syringe) 12.5 gm PRN Q15MIN PRN IV SEE COMMENTS; Start 07/10/17 at 12:00 Desvenlafaxine Succinate (Pristiq Er) 50 mg DAILY PO ; Start 07/11/17 at 09:00 ; Stop 07/11/17 at 09:00; Status DC Nitroglycerin (Nitroglycerin) 200 mcg 1X ONCE IART Last administered on 15:54; Start 07/10/17 at 15:45; Stop 07/10/17 at 15:46; Status DC Verapamil HCl (Verapamil) 2.5 mg 1X ONCE IART Last administered on 07/10/17 15:54; Start 07/10/17 at 15:45; Stop 07/10/17 at 15:46; Status DC Heparin Sodium (Porcine) (Heparin Sodium) 2,500 unit 1X ONCE IART Last administered on 07/10/17 15:55; Start 07/10/17 at 15:45; Stop 07/10/17 at 15 :46; Status DC Heparin Sodium/ Sodium Chloride 1,000 unit 1X ONCE IART Last administered on 07/10/17 15:53; Start 07/10/17 at 15:45; Stop 07/10/17 at 15:46; Status DC Midazolam HCl (Versed) 2 mg 1X ONCE IV Last administered on 07/10/17 15:55; Start 07/10/17 at 15:45; Stop 07/10/17 at 15:46; Status DC Fentanyl Citrate (Fentanyl 2ml Vial) 100 mcg 1X ONCE IV Last administered on 07/10/17 15:55; Start 07/10/17 at 15:45; Stop 07/10/17 at 15:46; Status DC Iohexol (Omnipaque 300 Mg/ml) 120 ml 1X ONCE IART Last administered on 15:54; Start 07/10/17 at 15:45; Stop 07/10/17 at 15:46; Status DC Lidocaine HCl 1 ml 1X ONCE IJ Last administered on 07/10/17 15:53; Start at 15:45; Stop 07/10/17 at 15:46; Status DC Info (Do NOT chart on this entry -- for MONITORING) 1 each PRN DAILY PRN MC SEE COMMENTS; Start 07/10/17 at 15:45; Stop 07/12/17 at 15:44; Status DC Metoprolol Tartrate (Lopressor) 12.5 mg BID PO Last administered on 07/10/17 21:24; Start 07/10/17 at 21:00; Stop 07/11/17 at 13:39; Status DC Ringer's Solution 1,000 ml @ 50 mls/hr Q20H IV Last administered on 07:00; Start 07/11/17 at 07:00; Stop 07/11/17 at 13:39; Status DC Zolpidem Tartrate (Ambien) 5 mg PRN QHS PRN PO INSOMNIA, MAY REPEAT IN 1HR Last administered on 07/12/17 23:12; Start 07/10/17 at 17:45 Cefazolin Sodium/ Dextrose 50 ml @ 100 mls/hr 1X ONCE IV Last administered on 07/11/17 08:22; Start 07/11/17 at 06:00; Stop 07/11/17 at 06:29; Status DC Metoprolol Tartrate (Lopressor) 25 mg 1X ONCE PO Last administered on 18:05; Start 07/10/17 at 17:45; Stop 07/10/17 at 17:46; Status DC Hydralazine HCl (Apresoline Inj) 20 mg PRN Q4HRS PRN IVP ELEVATED BP, SEE COMMENTS Last administered on 07/12/17 04:06; Start 07/10/17 at 17:45 Non-Formulary Medication 1 ea HS PO Last administered on 07/15/17 20:59; Start 07/10/17 at 22:00 Non-Formulary Medication 1 ea DAILY TP Last administered on 07/15/17 09:00; Start 07/11/17 at 09:00 Ondansetron HCl (Zofran) 4 mg PRN Q6HRS PRN IV NAUSEA/VOMITING Last administered on 07/11/17 01:01; Start 07/11/17 at 00:00; Stop 07/11/17 at 13 :39; Status DC Lorazepam (Ativan) 1 mg PRN Q6HRS PRN PO ANXIETY / AGITATION; Start 07/11/17 at 00:00 Lorazepam (Ativan) 1 mg PRN Q6HRS PRN IV ANXIETY / AGITATION Last administered on 07/11/17 01:01; Start 07/11/17 at 00:30 Cefazolin Sodium 1 gm/Sodium Chloride 500 ml @ 500 mls/hr 1X PERIOP ONCE IRR Last administered on 07/11/17 08:49; Start 07/11/17 at 07:30; Stop 07/11/17 at 08:29; Status DC Heparin Sodium (Porcine) 65193 unit/Ringer's Solution 1,020 ml @ 1,020 mls/hr 1X PERIOP ONCE IRR Last administered on 07/11/17 08:49; Start 07/11/17 at 07:30; Stop 07/11/17 at 08:29; Status DC Potassium Chloride 70 meq/ Sodium Bicarbonate 12.5 meq/Lidocaine HCl 24 ml/ Parenteral Electrolytes 571.5 ml @ 571.5 mls/ hr 1X PERIOP ONCE IRR Last administered on 07/11/17 07:30; Start 07/11/17 at 07:30; Stop 07/11/17 at 08 :29; Status DC Potassium Chloride 15 meq/ Sodium Bicarbonate 12.5 meq/Parenteral Electrolytes 520 ml @ 520 mls/hr 1X PERIOP ONCE IRR Last administered on 07/11/17 07:30 ; Start 07/11/17 at 07:30; Stop 07/11/17 at 08:29; Status DC Insulin Human Regular 150 unit/ Sodium Chloride 151.5 ml @ 0 mls/hr CONT PRN IV SEE I/O RECORD; Start 07/11/17 at 07:45; Stop 07/11/17 at 13:39; Status DC Papaverine HCl 60 mg STK-MED ONCE TP Last administered on 07/11/17 08:49; Start 07/11/17 at 08:49; Stop 07/11/17 at 09:47; Status DC Aspirin (Aspirin) 300 mg STK-MED ONCE [place] Last administered on 07/11/17 08:49 ; Start 07/11/17 at 08:49; Stop 07/11/17 at 09:47; Status DC Cellulose 1 each STK-MED ONCE TP Last administered on 07/11/17 08:49; Start 07/11/17 at 08:49; Stop 07/11/17 at 09:47; Status DC Vancomycin HCl (Vanco) 10 gm STK-MED ONCE TP Last administered on 07/11/17 08 :49; Start 07/11/17 at 08:49; Stop 07/11/17 at 09:47; Status DC Sodium Chloride (Normal Saline Flush) 3 ml PRN Q12HR PRN IV AFTER MEDS AND BLOOD DRAWS; Start 07/11/17 at 13:30 Ringer's Solution 1,000 ml @ 30 mls/hr Q24H IV Last administered on 12:42; Start 07/11/17 at 13:17 Albumin Human 250 ml @ 60 mls/hr PRN Q4HRS PRN IV SEE I/O RECORD Last administered on 07/11/17 15:02; Start 07/11/17 at 13:30 Insulin Human Regular 150 unit/ Sodium Chloride 151.5 ml @ 0 mls/hr CONT PRN PRN IV SEE I/O RECORD Last administered on 07/12/17 14:21; Start 07/11/17 at 13:30 Dextrose (Dextrose 50%-Water Syringe) 25 gm PRN Q15MIN PRN IV LOW BLOOD SUGAR; Start 07/11/17 at 13:30; Status Cancel Amiodarone HCl (Cordarone) 400 mg BID PO Last administered on 07/15/17 20:57 ; Start 07/12/17 at 09:00 Info 1 ea CONT PRN PRN MC SEE COMMENTS; Start 07/11/17 at 13:30 Info 1 ea CONT PRN PRN MC SEE COMMENTS; Start 07/11/17 at 13:30; Stop at 08:34; Status DC Magnesium Sulfate/ Dextrose 100 ml @ 100 mls/hr PRN DAILY PRN IV FOR MAG < 2.2 Last administered on 07/13/17 09:57; Start 07/11/17 at 13:30 Famotidine (Pepcid Vial) 20 mg BID IVP Last administered on 07/13/17 21:15; Start 07/11/17 at 21:00; Stop 07/14/17 at 08:30; Status DC Ondansetron HCl (Zofran) 4 mg PRN Q4HRS PRN IV NAUSEA/VOMITING Last administered on 07/16/17 08:12; Start 07/11/17 at 13:30 Morphine Sulfate 2 mg PRN Q1HR PRN IV PAIN Last administered on 07/12/17 04: 47; Start 07/11/17 at 13:30 Acetaminophen (Tylenol) 650 mg PRN Q4HRS PRN PO MILD PAIN / TEMP Last administered on 07/13/17 09:41; Start 07/11/17 at 13:30 Acetaminophen (Acetaminophen Supp) 650 mg PRN Q4HRS PRN [place] MILD PAIN / TEMP; Start 07/11/17 at 13:30 Meperidine HCl (Demerol) 12.5 mg PRN Q15MIN PRN IV SHIVERING; Start 07/11/17 at 13:30; Stop 07/12/17 at 13:17; Status DC Propofol 100 ml @ 0 mls/hr CONT PRN PRN IV POSTOP SEDATION UNTIL EXTUBATE; Start 07/11/17 at 13:30; Stop 07/12/17 at 16:31; Status DC Senna/Docusate Sodium (Senna Plus) 1 tab BID PO Last administered on 20:58; Start 07/11/17 at 21:00 Aspirin (Ecotrin) 325 mg DAILYWBKFT PO Last administered on 07/15/17 08:59; Start 07/12/17 at 08:00 Aspirin (Aspirin) 300 mg PRN DAILY PRN [place] IF UNABLE TO TAKE PO; Start at 13:30 Albuterol Sulfate (Ventolin Neb Soln) 2.5 mg PRN Q4HRS PRN NEB SHORTNESS OF BREATH; Start 07/11/17 at 13:30 Metoprolol Tartrate (Lopressor) 25 mg BID PO Last administered on 07/15/17 20 :58; Start 07/12/17 at 09:00 Nicardipine HCl 50 mg/Sodium Chloride 270 ml @ 0 mls/hr CONT PRN PRN IV PER PROTOCOL; Start 07/11/17 at 13:30 Oxycodone/ Acetaminophen (Percocet 5/325) 1 tab PRN Q4HRS PRN PO MILD PAIN Last administered on 07/11/17 20:42; Start 07/11/17 at 13:30 Oxycodone/ Acetaminophen (Percocet 5/325) 2 tab PRN Q4HRS PRN PO MODERATE PAIN , SEVERE PAIN Last administered on 07/15/17 19:39; Start 07/11/17 at 13:30 Cefazolin Sodium/ Dextrose 50 ml @ 100 mls/hr Q8H IV ; Start 07/11/17 at 16:30 ; Stop 07/11/17 at 17:39; Status DC Polyethylene Glycol (miraLAX PACKET) 17 gm HS PO Last administered on 20:57; Start 07/11/17 at 21:00 Amiodarone HCl 150 mg/Dextrose 103 ml @ 618 mls/hr 1X ONCE IV Last administered on 07/11/17 14:00; Start 07/11/17 at 14:00; Stop 07/11/17 at 14 :09; Status DC Amiodarone HCl 900 mg/Dextrose 518 ml @ 34.53 mls/ hr CONT PRN IV SEE I/O RECORD Last administered on 07/11/17 14:43; Start 07/11/17 at 14:00; Stop at 14:43; Status DC Clevidipine 100 ml @ 0 mls/hr CONT PRN IV PER PROTOCOL; Start 07/11/17 at 14: 15; Stop 07/12/17 at 16:31; Status DC Sodium Bicarbonate 50 meq 1X ONCE IV Last administered on 07/11/17 14:44; Start 07/11/17 at 14:45; Stop 07/11/17 at 14:46; Status DC Sodium Bicarbonate 50 meq 1X ONCE IV Last administered on 07/11/17 14:44; Start 07/11/17 at 14:45; Stop 07/11/17 at 14:46; Status DC Cefazolin Sodium/ Dextrose 50 ml @ 100 mls/hr Q8H IV Last administered on 04:50; Start 07/11/17 at 21:00; Stop 07/13/17 at 05:01; Status DC Potassium Chloride 50 ml @ 50 mls/hr Q1H IV Last administered on 07/11/17 20: 07; Start 07/11/17 at 18:30; Stop 07/11/17 at 20:29; Status DC Magnesium Sulfate/ Dextrose 50 ml @ 25 mls/hr 1X ONCE IV Last administered on 07/11/17 18:55; Start 07/11/17 at 18:30; Stop 07/11/17 at 20:29; Status DC Potassium Chloride 50 ml @ 50 mls/hr 1X ONCE IV Last administered on 22:39; Start 07/11/17 at 23:00; Stop 07/11/17 at 23:59; Status DC Prochlorperazine Edisylate (Compazine) 10 mg PRN Q6HRS PRN IV NAUSEA/VOMITING Last administered on 07/12/17 22:50; Start 07/11/17 at 22:30 Nitroglycerin/ Dextrose 250 ml @ 0 mls/hr CONT PRN IV SEE I/O RECORD Last administered on 07/11/17 22:00; Start 07/12/17 at 00:30; Stop 07/12/17 at 16 :31; Status DC Potassium Chloride 50 ml @ 50 mls/hr 1X ONCE IV Last administered on 07:56; Start 07/12/17 at 07:30; Stop 07/12/17 at 08:29; Status DC Amiodarone HCl 900 mg/Dextrose 518 ml @ 0 mls/hr CONT PRN IV SEE I/O RECORD; Start 07/12/17 at 11:45; Stop 07/12/17 at 12:22; Status DC Ketorolac Tromethamine (Toradol) 15 mg PRN Q6HRS PRN IV PAIN Last administered on 07/13/17 09:41; Start 07/12/17 at 12:30; Stop 07/13/17 at 14:28; Status DC Amiodarone HCl (Cordarone) 400 mg 1X ONCE PO Last administered on 07/12/17 12:41; Start 07/12/17 at 12:30; Stop 07/12/17 at 12:31; Status DC Cefazolin Sodium/ Dextrose (Ancef 2gm Premix) 2 gm STK-MED ONCE IV ; Start at 13:00; Stop 07/12/17 at 13:08; Status DC Non-Formulary Medication 1 ea DAILY PO Last administered on 07/15/17 09:02; Start 07/13/17 at 09:00 Albumin Human 500 ml @ 125 mls/hr 1X ONCE IV Last administered on 07/13/17 00:08; Start 07/13/17 at 00:30; Stop 07/13/17 at 04:29; Status DC Furosemide (Lasix) 20 mg 1X ONCE IVP Last administered on 07/13/17 04:47; Start 07/13/17 at 05:00; Stop 07/13/17 at 05:01; Status DC Potassium Chloride 50 ml @ 50 mls/hr Q1H IV Last administered on 07/13/17 09: 00; Start 07/13/17 at 08:00; Stop 07/13/17 at 09:59; Status DC Alprazolam (Xanax) 0.5 mg Q6HRS PO Last administered on 07/16/17 06:13; Start 07/13/17 at 12:00 Albuterol Sulfate (Ventolin Neb Soln) 2.5 mg 1X ONCE NEB ; Start 07/13/17 at 12:30; Stop 07/13/17 at 12:31; Status DC Albuterol Sulfate (Ventolin Neb Soln) 2.5 mg RTQID NEB Last administered on 07:06; Start 07/13/17 at 13:30 Insulin Aspart (NovoLOG) 0-5 UNITS TIDWMEALS SQ Last administered on 17:02; Start 07/13/17 at 17:00 Dextrose (Dextrose 50%-Water Syringe) 12.5 gm PRN Q15MIN PRN IV SEE COMMENTS; Start 07/13/17 at 13:00; Stop 07/14/17 at 08:26; Status DC Famotidine (Pepcid) 20 mg BID PO Last administered on 07/15/17 20:58; Start 07/14/17 at 09:00 Active Scripts Active Famotidine 20 Mg Tablet 20 Mg PO QHS 30 Days Debi-Bid Caplet (Acidoph/L.bulg/Bif.b/S.thermop) 1 Each Tablet 1 Tab PO TIDWMEALS 14 Days Reported Lamictal (Lamotrigine) 200 Mg Tablet 1 Tab PO HS Janumet Xr 100-1,000 Mg Tablet (Sitagliptin Phos/Metformin Hcl) 1 Each Tbmp.24hr 1 Each PO DAILY Amaryl (Glimepiride) 1 Mg Tablet 2 Tab PO DAILY Androgel (Testosterone) 5 Gm Gel.packet 2 Packet TP DAILY Actos (Pioglitazone Hcl) 30 Mg Tablet 1 Tab PO DAILY Pristiq Er (Desvenlafaxine Succinate) 50 Mg Tab.er.24h 1 Tab PO HS Latuda (Lurasidone Hcl) 40 Mg Tablet 1 Tab PO QHS Xanax (Alprazolam) 0.5 Mg Tablet 1 Tab PO TID Vitals/I & O Vital Sign - Last 24 Hours 07/15/17 07/15/17 07/15/17 07/15/17 11:00 12:08 12:58 13:58 Temp 97.9 97.9 Pulse 74 Resp 20 B/P (MAP) 112/53 (72) Pulse Ox 95 100 100 100 O2 Delivery Room Air Room Air Room Air 07/15/17 07/15/17 07/15/17 07/15/17 15:08 16:14 19:20 19:28 Temp 97.9 98.5 97.9 98.5 Pulse 73 77 Resp 20 18 B/P (MAP) 104/56 (72) 121/51 (74) Pulse Ox 97 97 96 97 O2 Delivery Room Air Room Air Room Air Room Air 07/15/17 07/15/17 07/15/17 07/15/17 19:30 19:39 20:39 20:57 Pulse 77 Resp 20 20 B/P (MAP) 121/51 O2 Delivery Room Air Room Air Room Air 07/15/17 07/15/17 07/16/17 07/16/17 20:58 23:44 03:15 07:00 Temp 98.1 97.9 98.5 98.1 97.9 98.5 Pulse 77 78 75 80 Resp 20 18 20 B/P (MAP) 121/51 129/63 (85) 129/56 (80) 160/67 (98) Pulse Ox 96 95 97 O2 Delivery Room Air Room Air Room Air 07/16/17 07:06 Pulse Ox 96 O2 Delivery Room Air Intake and Output 07/15/17 07/15/17 07/16/17 15:00 23:00 07:00 Intake Total 600 ml 800 ml 1220 ml Balance 600 ml 800 ml 1220 ml CADEN BRINK MD Jul 16, 2017 09:48
--- NOTE | 2017-07-16 10:00 | DS ---
DATE OF DISCHARGE: 07/16/2017 DATE OF DISCHARGE: 07/16/2017. PRIMARY DIAGNOSIS: Unstable angina. ADDITIONAL DIAGNOSES: Coronary artery disease, postoperative anemia, bipolar depression, diabetes and possible transient ischemic attack postoperatively with some speech difficulties. PROCEDURES: CABG x 3. CHIEF COMPLAINT AND HISTORY OF PRESENT ILLNESS: This is a 62-year-old white male who is well known to me. The patient has had some story consistent with angina over the couple of weeks prior to his admission or so and had had a stress test that was abnormal. It seems he was scheduled to see Cardiology when he began having worsening of his symptoms even at rest. He presented to the Emergency Room, where he was admitted and underwent cardiac catheterization showing 3-vessel disease and was scheduled for CABG. SUMMARY OF STAY: The patient was admitted and underwent CABG x 3. Postoperatively, he had some anemia which responded to transfusions. Otherwise, he had a fairly uncomplicated course, other than a possible TIA with some speech difficulties for 30 minutes or so on the morning or two after surgery. Workup of this was negative and he had carotid Dopplers preoperatively that were essentially unremarkable. He had just recovery to the point where he was felt to be dismissed. We did discuss beta blockade. In his case, it is good for his heart. Now per the depression, we will have to watch if it affects this as an outpatient after discharge. DISPOSITION: The patient is discharged to home. DIET: Low-fat diet, ADA diet. ACTIVITY: As tolerated. FOLLOWUP: Office in 1 week. DISCHARGE MEDICATIONS: Listed on the med rec and have been addressed. CAIO HUITRON MD DR: ARIES/delfina JOB#: [id number] / [id number]
[2017-07-16] MEDS: SENNOSIDES/DOCUSATE 8.6/50MG TABLET. PO SCH (10:53)
[2017-07-16] MEDS: GLIMEPIRIDE 2 MG TABLET. PO SCH (10:54)
[2017-07-16] MEDS: METOPROLOL TART IMMED RELEASE 25 MG TABLET. PO SCH (10:54)
[2017-07-16] MEDS: PIOGLITAZONE 15 MG TABLET. PO SCH (10:54)
[2017-07-16] MEDS: ASPIRIN ENTERIC COATED 325 MG TABLET.DR. PO SCH (10:55)
[2017-07-16] MEDS: FAMOTIDINE 20 MG TABLET. PO SCH (10:55)
[2017-07-16] MEDS: LACTOBACILLUS RHAMNOSUS GG 1 CAPSULE. PO SCH ×2 (10:55→13:24)
[2017-07-16] MEDS: AMIODARONE HCL 200 MG TABLET. PO SCH (10:55)
[2017-07-16] MEDS: JANUMET PO SCH (10:57)
[2017-07-16] MEDS: ANDROGEL TP SCH (10:59)
[2017-07-16 11:00] VITALS: BP 131/59
[2017-07-16] MEDS: IV RINGERS,LACTATED 1000ML 1,000 ML IV SCH (11:33)
[2017-07-16] MEDS ORDERED: ASPI325T11 PO (12:18)
[2017-07-16] MEDS ORDERED: TRAM1TAB4 PO ×2 (12:18)
[2017-07-16] MEDS ORDERED: METO25TA4 PO (12:18)
[2017-07-16] MEDS ORDERED: ATOR40TA59 PO (12:18)
--- NOTE | 2017-07-16 14:56 | PDOC ---
Progress Note Subjective Subjective Doing very well. Normotensive and in SR. 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 Doing very well. Normotensive and in SR. No issues Plan Plan of Care D/c home today Stop amiodarone ASA, b michele, statin Oral hypoglycemics Suppository prior to d/c F/u in 3 weeks JANIE PYLE MD Jul 16, 2017 14:56
[2017-07-31] MEDS ORDERED: ASPI-630 PO (12:29)
[2017-07-31] MEDS ORDERED: DESV100T PO (12:29)
[2017-07-31] MEDS ORDERED: ONDA4TAB11 PO (12:29)
[2017-07-31] MEDS ORDERED: TRAM50TA PO (13:55)
[2017-07-31] MEDS ORDERED: VENL150C6 PO (14:40)
== END 2017-07-16 15:30 | disposition home or self-care (01) | DRG 234 ==
LOC: ER 07:42 → 2 SOUTH 08:58 → 1 WEST ICU 07-11 12:06 → 2 NORTH 07-14 13:39
PROVIDERS: ADMIT Family Medicine; ATTEND Family Medicine
PROC: 02100Z9 Bypass Coronary Artery, One Artery from Left Internal Mammary, Open Approach (ICD-10-PCS; principal; 2017-07-10)
PROC: 4A023N7 Measurement of Cardiac Sampling and Pressure, Left Heart, Percutaneous Approach (ICD-10-PCS; 2017-07-10)
PROC: 021109W Bypass Coronary Artery, Two Arteries from Aorta with Autologous Venous Tissue, Open Approach (ICD-10-PCS; 2017-07-10)
PROC: 06BQ4ZZ Excision of Left Saphenous Vein, Percutaneous Endoscopic Approach (ICD-10-PCS; 2017-07-10)
PROC: 0W9B30Z Drainage of Left Pleural Cavity with Drainage Device, Percutaneous Approach (ICD-10-PCS; 2017-07-10)
PROC: B2111ZZ Fluoroscopy of Multiple Coronary Arteries using Low Osmolar Contrast (ICD-10-PCS; 2017-07-10)
PROC: 5A1221Z Performance of Cardiac Output, Continuous (ICD-10-PCS; 2017-07-10)
PROC: 3E083GC Introduction of Other Therapeutic Substance into Heart, Percutaneous Approach (ICD-10-PCS; 2017-07-10)
PROC: B2151ZZ Fluoroscopy of Left Heart using Low Osmolar Contrast (ICD-10-PCS; 2017-07-10)
PROC: 30233N1 Transfusion of Nonautologous Red Blood Cells into Peripheral Vein, Percutaneous Approach (ICD-10-PCS; 2017-07-10)
DX: I25.110 Atherosclerotic heart disease of native coronary artery with unstable angina pectoris (principal); G45.9 Transient cerebral ischemic attack, unspecified; D64.9 Anemia, unspecified; E11.9 Type 2 diabetes mellitus without complications; E78.5 Hyperlipidemia, unspecified; F12.90 Cannabis use, unspecified, uncomplicated; F31.9 Bipolar disorder, unspecified; I10 Essential (primary) hypertension; Z82.49 Family history of ischemic heart disease and other diseases of the circulatory system; Z83.3 Family history of diabetes mellitus; M19.90 Unspecified osteoarthritis, unspecified site; Z88.5 Allergy status to narcotic agent
CPT/HCPCS: 36415; 36600; 70450; 71010; 71250; 80047; 80048; 80061; 80076; 82803; 82805; 82962; 83735; 84132; 84443; 84484; 85025; 85027; 85347; 85610; 85730; 86850; 86900; 86901; 86920; 87641; 93005; 93306; 93458; 93880; 93970; 94002; 94640; 94760; 96365; 96375; 99152; 99153; C1769; C1781; C1892; J0282; J0330; J0360; J0690; J0780; J1644; J1815; J1885; J2060; J2150; J2250; J2270; J2405; J2440; J2704; J3010; J3370; J3475; J3480; J3490; J7030; J7040; J7060; J7120; J7613; P9016; P9041; P9045; P9046; Q9967; S0028; 97110; 97116; 99291-25; J2001

== ENCOUNTER → 2017-08-17 | Outpatient (CLI) | payer SELFPAY | END | disposition home or self-care (01) | LOC: RAD 11:37 | DX: J90 Pleural effusion, not elsewhere classified (principal); J98.11 Atelectasis; Z95.1 Presence of aortocoronary bypass graft; Z98.890 Other specified postprocedural states | CPT/HCPCS: 71020 ==